=== PATIENT | male | born 1960 | race American Indian/Alaskan Native ===

== ENCOUNTER 2019-04-08 12:29 | Outpatient (CLI) | payer OTHER ==
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
== END 2019-04-08 12:30 | disposition home or self-care (01) ==
LOC: XRAY 12:29
PROVIDERS: ATTEND Family Medicine
DX: M54.5 Low back pain (principal); M25.511 Pain in right shoulder; V89.2XXA Person injured in unspecified motor-vehicle accident, traffic, initial encounter; Y93.89 Activity, other specified; Y92.89 Other specified places as the place of occurrence of the external cause; Y99.8 Other external cause status
CPT/HCPCS: 72100

== ENCOUNTER 2020-07-18 14:54 | Inpatient (IN) | payer SELFPAY ==
--- NOTE | 2020-07-18 15:46 | Event Note ---
ED Screening Note Date of service: 07/18/20 Time: 15:45 ED Screening Note: 60 y o male with a history of congestive heart failure presents with chest pain shortness of breath and lower extremity swelling times couple of days. This initial assessment/diagnostic orders/clinical plan/treatment(s) is/are subject to change based on patients health status, clinical progression and re- assessment by fellow clinical providers in the ED. Further treatment and workup at subsequent clinical providers discretion. Patient/guardian urged not to elope from the ED as their condition may be serious if not clinically assessed and managed. Initial orders include: Labs, EKG, x-ray
[2020-07-18 15:59] LABS: Basophils % (Auto) 0.6 % (0.0-1.8); Eosinophils % (Auto) 0.3 % (0.0-4.3); Hematocrit 35.7 % (35.5-45.6); Hemoglobin 11.4 gm/dl (11.8-15.2); Lymphocytes # (Auto) 1.1 K/mm3 (1.2-5.4); Lymphocytes % (Auto) 15.7 % (13.4-35.0); Mean Corpuscular HGB Conc 32 % (32-34); Mean Corpuscular Volume 82 fl (84-94); Monocytes # (Auto) 0.5 K/mm3 (0.0-0.8); Monocytes % (Auto) 7.5 % (0.0-7.3); Platelet Count 165 K/mm3 (140-440); Red Blood Count 4.35 M/mm3 (3.65-5.03); Red Cell Distribution Width 18.9 % (13.2-15.2)
[2020-07-18 16:17] LABS: BUN/Creatinine Ratio 20; Blood Urea Nitrogen 22 mg/dL (9-20); Calcium 9.1 mg/dL (8.4-10.2); Creatine Kinase MB 4.8 ng/mL (0.0-4.0); Hemolysis Index 5
--- NOTE | 2020-07-18 16:50 | Emergency Department Report ---
ED Chest Pain HPI - General Chief Complaint: Dyspnea/Respdistress Stated Complaint: SOB/FEET/FACE SWELLING PUI?: No Time Seen by Provider: 07/18/20 16:25 Source: patient Mode of arrival: Ambulatory Limitations: No Limitations - History of Present Illness Initial Comments: Patient is a 60-year-old male that presents emergency room with complaints of chest pain, chest pressure, shortness of breath, peripheral edema. Patient sta maira his symptoms started 2 days ago. Patient states his symptoms are worsening. Patient states he is also having dyspnea on exertion. Patient states his chest pain and shortness of breath are better with rest and worse with exertion. Patient states chest pain is a 2 out of 10. Patient states his chest pain is more of a pressure. Patient denies fever and chills. Patient denies nausea vomiting. Patient denies diaphoresis. Patient denies recent travel. Patient denies recent international travel. Patient denies exposure to the novel coronavirus. Patient denies sick contacts. Patient denies fever and chills. Patient denies cough. Patient denies diarrhea. Patient denies coming in contact with anybody with symptoms of the novel coronavirus. MD Complaint: chest pain -: Sudden Pain Location: left chest Severity: mild Severity scale (0 -10): 3 Quality: tightness, pressure Improves With: rest Worsens With: exertion re: dyspnea. denies: nausea, vomting, diaphoresis, sense of impending doom Other Symptoms: leg swelling. denies: cough, fever, syncope, rash, acid taste in mouth, palpitations, burping Treatments Prior to Arrival: aspirin Aspirin use within the Past 7 Days: (1) Yes - Related Data On Oral Contraceptives: No Allergies Allergy/AdvReac Type Severity Reaction Status Date / Time metformin Allergy Unknown Verified 07/18/20 15:51 Heart Score - HEART Score History: Moderately suspicious EKG: Non-specific Age: 45-65 Risk factors: 1-2 risk factors Troponin: < normal limit HEART Score: 4 ED Review of Systems ROS: Stated complaint: SOB/FEET/FACE SWELLING Other details as noted in HPI Constitutional: denies: chills, fever Eyes: denies: eye pain, eye discharge, vision change ENT: denies: ear pain, throat pain Respiratory: shortness of breath, SOB with exertion, SOB at rest. denies: cough, wheezing Cardiovascular: chest pain, dyspnea on exertion, edema. denies: palpitations Endocrine: no symptoms reported Gastrointestinal: denies: abdominal pain, nausea, diarrhea Genitourinary: denies: urgency, dysuria Musculoskeletal: denies: back pain, joint swelling, arthralgia Skin: denies: rash, lesions Neurological: denies: headache, weakness, paresthesias Psychiatric: denies: anxiety, depression Hematological/Lymphatic: denies: easy bleeding, easy bruising ED Past Medical Hx - Past Medical History Previous Medical History?: Yes Hx Congestive Heart Failure: Yes Additional medical history: elevated cholesterol - Surgical History Past Surgical History?: Yes Additional Surgical History: prostate removed 2016 - Family History Family history: no significant - Social History Smoking Status: Never Smoker Substance Use Type: None ED Physical Exam - General Limitations: No Limitations General appearance: alert, in no apparent distress - Head Head exam: Present: atraumatic, normocephalic - Eye Eye exam: Present: normal appearance - ENT ENT exam: Present: mucous membranes moist - Neck Neck exam: Present: normal inspection - Respiratory Respiratory exam: Present: normal lung sounds bilaterally. Absent: respiratory distress - Cardiovascular Cardiovascular Exam: Present: regular rate, normal rhythm. Absent: systolic murmur, diastolic murmur, rubs, gallop - GI/Abdominal GI/Abdominal exam: Present: soft, normal bowel sounds. Absent: distended, tenderness, guarding - Rectal Rectal exam: Present: deferred - Extremities Exam Extremities exam: Present: full ROM, normal capillary refill, pedal edema. Abse nt: tenderness, calf tenderness - Back Exam Back exam: Present: normal inspection - Neurological Exam Neurological exam: Present: alert, oriented X3 - Psychiatric Psychiatric exam: Present: normal affect, normal mood - Skin Skin exam: Present: warm, dry, intact, normal color. Absent: rash ED Course Vital Signs 07/18/20 15:40 Temperature 98.8 F Pulse Rate 94 H Respiratory 22 Rate Blood Pressure 109/77 O2 Sat by Pulse 94 Oximetry - Reevaluation(s) Reevaluation #1: I discussed all results with patient. I discussed plan of care with patient. Patient agrees with plan of care and admission. Patient to be admitted to the hospitalist service. Patient will be given IV Lasix. 07/18/20 17:16 - Consultations Consultation #1: Hospitalist consulted for admission. Hospitalist to admit patient. 07/18/20 17:26 ANMOL score - Anmol Score Age > 65: (0) No Aspirin use within the Past 7 Days: (1) Yes 3 or more CAD Risk Factors: (0) No 2 or more Angina events in past 24 hrs: (1) Yes Known CAD with more than 50% Stenosis: (0) No Elevated Cardiac Markers: (0) No ST Deviation Greater than 0.5mm: (0) No ANMOL Score: 2 ED Medical Decision Making - Lab Data Result diagrams: 07/18/20 15:50 07/18/20 15:50 - EKG Data -: EKG Interpreted by Me EKG shows normal: axis, intervals, QRS complexes, ST-T waves Rate: normal - EKG Data Interpretation: other (Atrial fibrillation) - Radiology Data Radiology results: report reviewed, image reviewed interpreted by me: Chest x-ray: No pneumonia, no pneumothorax, no foreign body, no osseous findings, cardiomegaly with CHF changes. - Medical Decision Making Patient is a 60-year-old male that presents emergency room for chest pain, shortness of breath and leg edema. Patient's chest pain is more of a pressure. Patient had a cardiac work-up. Patient's chest x-ray shows CHF changes. EKG shows no acute findings or ST changes. Patient's EKG shows A. fib. EKG interpreted by me. Chest x-ray interpreted by me. Patient had labs done which were essentially unremarkable and troponin was negative. Patient's BNP elevated. Patient given IV Lasix in the ER. Patient had an IV placed. Patient admitted to the hospital service for further evaluation treatment. - Differential Diagnosis Chest pain, shortness of breath, CHF, ACS, edema Critical Care Time: Yes Critical care time in (mins) excluding proc time.: 35 Critical care attestation.: If time is entered above; I have spent that time in minutes in the direct care of this critically ill patient, excluding procedure time. Critical Care Time: 35 minutes ED Disposition Clinical Impression: SOB (shortness of breath), KIMBALL (dyspnea on exertion) CHF exacerbation Qualifiers: Heart failure type: unspecified Qualified Code(s): I50.9 - Heart failure, unspecified Edema Qualifiers: Edema type: unspecified Qualified Code(s): R60.9 - Edema, unspecified Pulmonary edema Qualifiers: Chronicity: acute Qualified Code(s): J81.0 - Acute pulmonary edema Disposition: 09 OP ADMIT IP TO THIS HOSP Is pt being admited?: Yes Does the pt Need Aspirin: No Condition: Critical Instructions: Pulmonary Edema (ED) Time of Disposition: 17:26
--- NOTE | 2020-07-18 17:18 | XRay Report ---
CHEST 1 VIEW 07/18/2020 4:59 PM INDICATION / CLINICAL INFORMATION: Dyspnea. COMPARISON: [facility] radiograph dated 10/07/17 FINDINGS: SUPPORT DEVICES: None. HEART / MEDIASTINUM: Heart is moderately enlarged but unchanged. Pulmonary venous hypertension. LUNGS / PLEURA: Mild to moderate interstitial pulmonary edema with small to moderate right pleural ef fusion. No pneumothorax. ADDITIONAL FINDINGS: No significant additional findings. IMPRESSION: 1. Cardiomegaly with probable congestive heart failure. Signer Name: Lana Nguyen MD Signed: 07/18/2020 5:13 PM Workstation Name: [id number]
[2020-07-18] MEDS ORDERED: FUROSEMIDE 40 MG/4 ML INJ IV ONE (17:23)
--- NOTE | 2020-07-18 17:48 | History and Physical Report ---
History of Present Illness Chief complaint: my legs are swollen, and its hard to breathe History of present illness: 60 YO Male with DM, Obesity Hypoventilation Syndrome, Metabolic Syndrome, CHF, HLD presents to ED for evaluation. Pt reports "My legs are swelling, and I cant breathe". Patient states that he has experienced shortness of breath, lower extremity edema, dyspnea on exertion, dyspnea at rest, decreased exercise tolerance, orthopnea, paroxysmal nocturnal dyspnea over the last 1 week with worsening symptoms over the last 2 days. Patient also acknowledges chest discomfort. Patient transported to [facility] via private vehicle for further care and evaluation of the aforementioned symptoms. The patient was seen and evaluated in the emergency department. All lab and imaging studies reviewed. Patient found to have clinical symptoms consistent with CHF decompensation complicated by pulmonary edema. Patient initiated on CHF protocol and admitted to telemetry due to increased risk of worsening symptoms. Patient denies fever, chills, chest pain, palpitation, productive cough, skin rash, recent ill contacts, prolonged travel, prolonged immobility, unilateral leg swelling, calf pain, individual/family history of DVT/PE/bleeding/blood clotting disorders, or known exposure to COVID-19. No prior admission for review. No medication listed at time of admission for reconciliation. Advanced care planning conducted in ED. Past History Past Medical History: diabetes, heart failure, hyperlipidemia Past Surgical History: Other (Prostatectomy) Social history: single. denies: smoking, alcohol abuse, prescription drug abuse Family history: diabetes, hypertension Medications and Allergies Allergies Allergy/AdvReac Type Severity Reaction Status Date / Time metformin Allergy Unknown Verified 07/18/20 15:51 Review of Systems Constitutional: no weight loss, no weight gain, no chills, no sweats Ears, nose, mouth and throat: no ear pain, no tinnitis, no nasal congestion Cardiovascular: orthopnea, shortness of breath, dyspnea on exertion, paroxysmal nocturnal dyspnea, leg edema, decreased exercise tolerance, no chest pain, no palpitations, no rapid/irregular heart beat Respiratory: no cough, no shortness of breath Gastrointestinal: no abdominal pain, no nausea, no vomiting, no diarrhea, no c onstipation Genitourinary Male: no flank pain, no discharge, no urinary frequency, no urinary hesitancy (.), no nocturia Rectal: no pain, no incontinence, no bleeding Musculoskeletal: no neck pain, no arm numbness/tingling, no low back pain, no shooting leg pain Integumentary: no rash, no pruritis, no redness, no sores, no wounds, no jaundice Neurological: no paralysis, no weakness, no parathesias, no numbness, no tingling Psychiatric: no anxiety, no change in sleep habits, no insomnia, no hypersomnia, no change in appetite, no suicidal ideation Endocrine: no cold intolerance, no heat intolerance, no excessive thirst, no polydipsia, no polyuria Hematologic/Lymphatic: no easy bruising, no easy bleeding, no lymphadenopathy Allergic/Immunologic: no urticaria, no wheezing, no persistent infections, no anaphylaxis Exam - Constitutional Vitals: Temp Pulse Resp BP Pulse Ox 98.8 F 99 H 23 144/90 100 07/18/20 15:40 07/18/20 17:30 07/18/20 17:30 07/18/20 17:30 07/18/20 17:30 General appearance: Present: mild distress - EENT Eyes: Present: PERRL ENT: hearing intact, clear oral mucosa - Neck Neck: Present: supple, normal ROM - Respiratory Respiratory effort: labored, accessory muscle use Respiratory: bilateral: diminished, rales - Cardiovascular Heart Sounds: Present: S1 & S2. Absent: rub, click - Extremities Extremities: pulses symmetrical Extremity abnormal: edema, other (BLE blisters) Peripheral Pulses: within normal limits - Abdominal General gastrointestinal: Present: soft, non-tender, non-distended, normal bowel sounds Male genitourinary: Present: normal - Integumentary Integumentary: Present: clear, warm, dry - Musculoskeletal Musculoskeletal: gait normal, strength equal bilaterally - Psychiatric Psychiatric: appropriate mood/affect, intact judgment & insight - Neurologic Neurologic: CNII-XII intact, moves all extremities HEART Score - HEART Score EKG: Non-specific Age: 45-65 Risk factors: 1-2 risk factors Troponin: Troponin T 0.019 ng/mL (0.00-0.029) 07/18/20 15:50 Troponin: < normal limit Results - Labs CBC & Chem 7: 07/18/20 15:50 07/18/20 15:50 Labs: Abnormal lab results 07/18/20 07/18/20 07/18/20 Range/Units 15:50 15:50 15:50 Hgb 11.4 L (11.8-15.2) gm/dl MCV 82 L (84-94) fl MCH 26 L (28-32) pg RDW 18.9 H (13.2-15.2) % [place] % (Auto) 7.5 H (0.0-7.3) % Lymph # (Auto) 1.1 L (1.2-5.4) K/mm3 Seg Neutrophils % 75.9 H (40.0-70.0) % Potassium 3.4 L (3.6-5.0) mmol/L Carbon Dioxide 31 H (22-30) mmol/L BUN 22 H (9-20) mg/dL Glucose 128 H (75-100) mg/dL CK-MB (CK-2) 4.8 H (0.0-4.0) ng/mL Assessment and Plan - Patient Problems (1) CHF exacerbation Status: Acute Qualifiers: Heart failure type: unspecified Qualified Code(s): I50.9 - Heart failure, unspecified Plan to address problem: CHF Protocol: Strict I/O, daily weight, monitor uop q shift, afterload reduction, Echocardiogram, thyroid panel, (2) HLD (hyperlipidemia) Status: Acute Qualifiers: Hyperlipidemia type: mixed hyperlipidemia Qualified Code(s): E78.2 - Mixed hyperlipidemia Plan to address problem: low cholesterol diet, statin therapy as clinically indicated. (3) Pulmonary edema Status: Acute Qualifiers: Chronicity: acute Qualified Code(s): J81.0 - Acute pulmonary edema Plan to address problem: diuresis, supportive care. (4) Obesity hypoventilation syndrome Status: Acute Plan to address problem: Balanced diet, increased physical activity at discharge, outpatient pulmonary F/U for sleep study (5) Metabolic syndrome Status: Acute Plan to address problem: balanced diet, increased physical activity at discharge, glucose control, (6) Edema Status: Acute Qualifiers: Edema type: unspecified Qualified Code(s): R60.9 - Edema, unspecified Plan to address problem: BLE blisters: Wound care consulted. (7) DVT prophylaxis Status: Acute Plan to address problem: SCD to BLE while in bed, Pt is ambulatory.
[2020-07-18] MEDS ORDERED: ACETAMINOPHEN 325 MG TAB PO PRN (17:49)
[2020-07-18] MEDS ORDERED: ALBUTEROL 2.5 MG/3 ML NEBU IH PRN (17:49)
[2020-07-18] MEDS ORDERED: ONDANSETRON 4 MG/2 ML INJ IV PRN (17:49)
[2020-07-18] MEDS: FUROSEMIDE 20 MG/2 ML INJ IV SCH (18:35)
[2020-07-18 18:38] LABS: Free T4 (Free Thyroxine) 1.31 ng/dL (0.76-1.46)
[2020-07-19] MEDS: FUROSEMIDE 20 MG/2 ML INJ IV SCH (06:46)
[2020-07-19 07:21] LABS: BUN/Creatinine Ratio 21; Blood Urea Nitrogen 23 mg/dL (9-20); Calcium 9.3 mg/dL (8.4-10.2); Hemolysis Index 4
--- NOTE | 2020-07-19 10:05 | Progress Note ---
Assessment and Plan Assessment and plan: Acute heart failure exacerbation. Obesity hypoventilation syndrome. Acute hypoxic respiratory failure. Etiology secondary to above. Diabetes mellitus type 2. Hyperlipidemia. 07/19/2020. Cardiology consultation pending. Follow-up echocardiogram to assess for systolic and diastolic dysfunction. Continue IV diuresis of Lasix. GDMT per cardiology. Continue O2 to maintain sats greater than 92%. Continue Accu- Cheks and sliding scale insulin. History Interval history: No new issues overnight. Hospitalist Physical - Constitutional Vitals: Temp Pulse Resp BP Pulse Ox 98.1 F 98 H 16 123/71 96 07/19/20 03:04 07/19/20 03:04 07/19/20 03:04 07/19/20 03:04 07/19/20 08:57 General appearance: Present: mild distress - EENT Eyes: Present: PERRL, EOM intact ENT: hearing intact, clear oral mucosa, dentition normal - Neck Neck: Present: supple, normal ROM - Respiratory Respiratory effort: normal Respiratory: bilateral: CTA - Cardiovascular Rhythm: regular Heart Sounds: Present: S1 & S2. Absent: gallop, rub - Extremities Extremities: no ischemia, No edema, Full ROM - Abdominal General gastrointestinal: soft, non-tender, non-distended, normal bowel sounds - Integumentary Integumentary: Present: clear, warm, dry - Neurologic Neurologic: CNII-XII intact, moves all extremities HEART Score - HEART Score EKG: Non-specific Age: 45-65 Risk factors: 1-2 risk factors Troponin: Troponin T 0.019 ng/mL (0.00-0.029) 07/18/20 15:50 Troponin: < normal limit Results - Labs CBC & Chem 7: 07/18/20 15:50 07/19/20 06:05 Labs: Laboratory Last Values WBC 7.3 K/mm3 (4.5-11.0) 07/18/20 15:50 RBC 4.35 M/mm3 (3.65-5.03) 07/18/20 15:50 Hgb 11.4 gm/dl (11.8-15.2) L 07/18/20 15:50 Hct 35.7 % (35.5-45.6) 07/18/20 15:50 MCV 82 fl (84-94) L 07/18/20 15:50 MCH 26 pg (28-32) L 07/18/20 15:50 MCHC 32 % (32-34) 07/18/20 15:50 RDW 18.9 % (13.2-15.2) H 07/18/20 15:50 Plt Count 165 K/mm3 (140-440) 07/18/20 15:50 Lymph % (Auto) 15.7 % (13.4-35.0) 07/18/20 15:50 [place] % (Auto) 7.5 % (0.0-7.3) H 07/18/20 15:50 Eos % (Auto) 0.3 % (0.0-4.3) 07/18/20 15:50 Baso % (Auto) 0.6 % (0.0-1.8) 07/18/20 15:50 Lymph # (Auto) 1.1 K/mm3 (1.2-5.4) L 07/18/20 15:50 [place] # (Auto) 0.5 K/mm3 (0.0-0.8) 07/18/20 15:50 Eos # (Auto) 0.0 K/mm3 (0.0-0.4) 07/18/20 15:50 Baso # (Auto) 0.0 K/mm3 (0.0-0.1) 07/18/20 15:50 Seg Neutrophils % 75.9 % (40.0-70.0) H 07/18/20 15:50 Seg Neutrophils # 5.5 K/mm3 (1.8-7.7) 07/18/20 15:50 Sodium 141 mmol/L (137-145) 07/19/20 06:05 Potassium 3.2 mmol/L (3.6-5.0) L 07/19/20 06:05 Chloride 102.3 mmol/L (98-107) 07/19/20 06:05 Carbon Dioxide 31 mmol/L (22-30) H 07/19/20 06:05 Anion Gap 11 mmol/L 07/19/20 06:05 BUN 23 mg/dL (9-20) H 07/19/20 06:05 Creatinine 1.1 mg/dL (0.8-1.3) 07/19/20 06:05 Estimated GFR > 60 ml/min 07/19/20 06:05 BUN/Creatinine Ratio 21 % 07/19/20 06:05 Glucose 110 mg/dL (75-100) H 07/19/20 06:05 Calcium 9.3 mg/dL (8.4-10.2) 07/19/20 06:05 Magnesium 1.80 mg/dL (1.7-2.3) 07/18/20 18:00 Total Creatine Kinase 147 units/L (55-170) 07/18/20 15:50 CK-MB (CK-2) 4.8 ng/mL (0.0-4.0) H 07/18/20 15:50 CK-MB (CK-2) Rel Index 3.2 (0-4) 07/18/20 15:50 Troponin T 0.019 ng/mL (0.00-0.029) 07/18/20 15:50 NT-Pro-B Natriuret Pep 2430 pg/mL (0-900) H 07/18/20 16:59 TSH 1.140 mlU/mL (0.270-4.200) 07/18/20 18:00 Free T4 1.31 ng/dL (0.76-1.46) 07/18/20 18:00 - Diagnostic Impressions Diagnostic Impressions: Echocardiogram 07/18/20 17:51 Transthoracic Echocardiogram Indication: SOB BP: 123/71 HR: 103 Conclusions *The left ventricular chamber size is mildly dilated. *Mild concentric left ventricular hypertrophy is observed. *Global left ventricular systolic function is severely decreased. *The estimated ejection fraction is 10-15%. *Abnormal left ventricular diastolic filling is observed, consistent with impaired relaxation. *The left atrium is moderately dilated. *There is mild aortic regurgitation. *There is moderate mitral regurgitation. *There is evidence of moderate pulmonary hypertension. *A trivial pericardial effusion is visualized. Findings Left Ventricle: The left ventricular chamber size is mildly dilated. Mild concentric left ventricular hypertrophy is observed. Global left ventricular systolic function is severely decreased. The estimated ejection fraction is 10-15%. Abnormal left ventricular diastolic filling is observed, consistent with impaired relaxation. Left Atrium: The left atrium is moderately dilated. Right Ventricle: The right ventricle is mild to moderately dilated. The right ventricular global systolic function is mildly reduced. Right Atrium: The right atrium is moderate to severely dilated. Aortic Valve: The aortic valve leaflets are mildly thickened. There is mild aortic regurgitation. Mitral Valve: The mitral valve leaflets are mildly thickened. There is moderate mitral regurgitation. Tricuspid Valve: The tricuspid valve leaflets are normal. There is mild tricuspid regurgitation. The right ventricular systolic pressure is calculated at 58 mmHg. There is evidence of moderate pulmonary hypertension. Pulmonic Valve: The pulmonic valve appears normal. There is trace pulmonic regurgitation. Pericardium: A trivial pericardial effusion is visualized. Aorta: There is mild dilatation of the ascending aorta. There is mild dilatation of the aortic root. Venous: The inferior vena cava is dilated. There is less than 50% respiratory change in the inferior vena cava dimension. Measurements Chambers 2D Name Value Normal Range IVSd (2D) 1.16 cm (0.6 - 1.1) LVPWd (2D) 1.17 cm (0.6 - 1.1) LVIDd (2D) 5.84 cm (3.7 - 5.6) LVIDs (2D) 5.72 cm (2 - 3.8) LV FS (2D) 2.04 % - Ao root diameter (2D) 4.41 cm (2 - 3.7) Volumes/Mass Name Value Normal Range LA ESV SP 4CH (A/L) 84.92 ml - LA ESV SP 2CH (A/L) 95.59 ml - LA ESV BP (A/L) 92.68 ml - LA ESV SP 4CH (MOD) 82 ml - LA ESV SP 2CH (MOD) 93.29 ml - Diastolic/Systolic Function Name Value Normal Range MV E-wave Vmax 0.92 m/sec - MV deceleration time 137.24 msec - Aortic Valve Name Value Normal Range AV Vmax 1.17 m/sec - AV VTI 19.22 cm - AV peak gradient 5.52 mmHg - AV mean gradient 3.43 mmHg - LVOT diameter 2.03 cm - LVOT Vmax 0.95 m/sec - LVOT VTI 15.34 cm - LVOT peak gradient 3.6 mmHg - LVOT mean gradient 2.26 mmHg - SV LVOT 49.86 ml - ALEXIA (continuity Vmax) 2.62 cm2 - ALEXIA (continuity VTI) 2.59 cm2 - AR PHT 438.17 msec - AR peak gradient 63.51 mmHg - Ascending Ao 3.99 cm - Mitral Valve Name Value Normal Range MV Vmax 1.57 m/sec - MV VTI 18.44 cm - MV peak gradient 11.39 mmHg - MV mean gradient 6.05 mmHg - MV PHT 78.85 msec - MR Vmax 4.61 m/sec - MR VTI 137.65 cm - MVA (PHT) 2.79 cm2 - MVA (continuity VTI) 2.7 cm2 - Tricuspid Valve Name Value Normal Range TR Vmax 3.27 m/sec - TR peak gradient 43 mmHg - RAP 15 mmHg - RVSP 58 mmHg - IVC diameter 2.47 cm (1.2 - 2.3) Pulmonic Valve/Qp:Qs Name Value Normal Range PV Vmax 0.64 m/sec - PV peak gradient 1.63 mmHg - ME end-diastolic Vmax 2.09 m/sec - PV acceleration time 102.76 msec - Dale/IV: Voiding Method Urinal Active Medications - Current Medications Current Medications: Generic Name Dose Route Start Last Admin Trade Name Freq PRN Reason Stop Dose Admin Acetaminophen 650 mg 07/18/20 17:49 Acetaminophen 325 Mg Tab PO Q4H PRN Pain MILD(1-3)/Fever >100.5/BOWSER Albuterol 2.5 mg 07/18/20 17:49 Albuterol 2.5 Mg/3 Ml Nebu IH Q4HRT PRN Shortness Of Breath Furosemide 20 mg 07/18/20 18:00 07/19/20 06:46 Furosemide 20 Mg/2 Ml Inj IV 20 mg BID@0600,1800 PANFILO Administration Ondansetron HCl 4 mg 07/18/20 17:49 Ondansetron 4 Mg/2 Ml Inj IV Q8H PRN Nausea And Vomiting Sodium Chloride 10 ml 07/18/20 22:00 07/19/20 04:20 Sodium Chloride 0.9% 10 Ml Flush Syringe IV Not Given BID PANFILO Sodium Chloride 10 ml 07/18/20 17:49 07/19/20 06:47 Sodium Chloride 0.9% 10 Ml Flush Syringe IV 10 ml PRN PRN Administration LINE FLUSH Nutrition/Malnutrition Assess - Dietary Evaluation Nutrition/Malnutrition Findings: Nutrition Notes Start: 07/19/20 09:37 Freq: Status: Active Protocol: Document 07/19/20 09:37 CW (Rec: 07/19/20 09:46 CW [id number]) Nutrition Notes 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
[2020-07-19] MEDS ORDERED: ENOXAPARIN 100 MG/1 ML INJ SUB-Q NR (11:15)
--- NOTE | 2020-07-19 11:25 | Consultation ---
History of Present Illness Consult date: 07/19/20 Requesting physician: CALI ROBB Consult reason: congestive heart failure History of present illness: The pt is a 60 YO male with a past medical history of reported HFrEF, atrial fibrillation, HTN, DM, former heavy ETOH use (quit drinking in 2014), prostate CA s/p surgery in 2017, medical noncompliance. He is previously unknown to our practice. He presented with c/o progressively worsening SOB, KIMBALL, orthopnea, abd ominal swelling, BLE swelling for several months prior to arrival. Pt also reports subjective weight gain over the past several weeks, although he has not weighed himself recently. Pt denies any chest pain, palpitations, n/v, diaphoresis, dizziness or syncope. CXR c/w HF and pleural effusions. tte r eviewed - EF 10-15%. He is noted to be in atrial fibrillation on telemetry. Of note, pt reports a h/o prostate cancer s/p surgery at [facility] in 2017. He reports that at the time of his prostate surgery, he underwent cardiac testing which included echo and cardiac catheterization. He reports that he was diagnosed with HFrEF, NICMP with normal coronaries via [facility], and atrial fibrillation (for which he was initiated on Eliquis at that time). [facility] records reviewed and unfortunately none of these diagnostics are present in pt's chart. Pt admits that he only took prescription medications for approx 1 month following diagnosis in 2017 and has not followed up with a tie hacker since 2017. Past History Past Medical History: diabetes, heart failure, hyperlipidemia Past Surgical History: Other (Prostatectomy) Social history: single. denies: smoking, alcohol abuse, prescription drug abuse Family history: diabetes, hypertension Medications and Allergies Allergies Allergy/AdvReac Type Severity Reaction Status Date / Time metformin Allergy Unknown Verified 07/18/20 15:51 Active Meds: Active Medications Acetaminophen (Acetaminophen 325 Mg Tab) 650 mg PO Q4H PRN PRN Reason: Pain MILD(1-3)/Fever >100.5/BOWSER Albuterol (Albuterol 2.5 Mg/3 Ml Nebu) 2.5 mg IH Q4HRT PRN PRN Reason: Shortness Of Breath Aspirin (Aspirin 325 Mg Tab) 325 mg PO QDAY PANFILO Enoxaparin Sodium (Enoxaparin 100 Mg/1 Ml Inj) 100 mg SUB-Q ONCE NR; Protocol Stop: 07/19/20 16:00 Furosemide (Furosemide 20 Mg/2 Ml Inj) 40 mg IV BID@0600,1800 [facility] Losartan Potassium (Losartan 25 Mg Tab) 25 mg PO QDAY [facility] Metoprolol Tartrate (Metoprolol Tartrate 25 Mg Tab) 25 mg PO BID [facility] Ondansetron HCl (Ondansetron 4 Mg/2 Ml Inj) 4 mg IV Q8H PRN PRN Reason: Nausea And Vomiting Sodium Chloride (Sodium Chloride 0.9% 10 Ml Flush Syringe) 10 ml IV BID [facility] Last Admin: 07/19/20 10:56 Dose: 10 ml Documented by: Sodium Chloride (Sodium Chloride 0.9% 10 Ml Flush Syringe) 10 ml IV PRN PRN PRN Reason: LINE FLUSH Last Admin: 07/19/20 06:47 Dose: 10 ml Documented by: Spironolactone (Spironolactone 25 Mg Tab) 25 mg PO QDAY [facility] Review of Systems Constitutional: weight gain, no fever, no chills, no sweats Ears, nose, mouth and throat: no ear pain, no nose pain, no sinus pressure, no sinus pain Cardiovascular: orthopnea, edema, shortness of breath, dyspnea on exertion, paroxysmal nocturnal dyspnea, high blood pressure, leg edema, decreased exercise tolerance, no chest pain, no palpitations, no rapid/irregular heart beat, no syncope, no lightheadedness Respiratory: shortness of breath, dyspnea on exertion, no cough, no congestion, no wheezing, no pain on inspiration Gastrointestinal: other (abdominal swelling), no abdominal pain, no nausea, no vomiting, no diarrhea, no constipation, no change in bowel habits Genitourinary Male: no dysuria, no hematuria, no flank pain, no discharge, no urinary frequency, no urinary hesitancy Musculoskeletal: no neck stiffness, no neck pain, no shooting arm pain, no arm numbness/tingling, no low back pain, no shooting leg pain Integumentary: no rash, no pruritis, no redness, no sores, no wounds Neurological: no head injury, no paralysis, no weakness, no parathesias, no numbness, no tingling, no seizures, no syncope Psychiatric: no anxiety Endocrine: no cold intolerance, no heat intolerance Hematologic/Lymphatic: no easy bruising Allergic/Immunologic: no urticaria Physical Examination Vital Signs Temp Pulse Resp BP Pulse Ox 98.8 F 94 H 22 109/77 94 07/18/20 15:40 07/18/20 15:40 07/18/20 15:40 07/18/20 15:40 07/18/20 15:40 General appearance: no acute distress HEENT: Positive: PERRL, Normocephaly, Mucus Membranes Moist Neck: Positive: neck supple, trachea midline Cardiac: Positive: irregularly irregular, S1/S2 Lungs: Positive: Decreased Breath Sounds Neuro: Positive: Grossly Intact Abdomen: Positive: Other (abdominal swelling noted). Negative: Tender Skin: Negative: Rash Musculoskeletal: No Pain Extremities: Present: +3 Edema (BLE) Results 07/18/20 15:50 07/19/20 06:05 Cardiac Enzymes 07/18/20 Range/Units 15:50 CK-MB (CK-2) 4.8 H (0.0-4.0) ng/mL CBC 07/18/20 Range/Units 15:50 WBC 7.3 (4.5-11.0) K/mm3 RBC 4.35 (3.65-5.03) M/mm3 Hgb 11.4 L (11.8-15.2) gm/dl Hct 35.7 (35.5-45.6) % Plt Count 165 (140-440) K/mm3 Lymph # (Auto) 1.1 L (1.2-5.4) K/mm3 Russell # (Auto) 0.5 (0.0-0.8) K/mm3 Eos # (Auto) 0.0 (0.0-0.4) K/mm3 Baso # (Auto) 0.0 (0.0-0.1) K/mm3 Comprehensive Metabolic Panel 07/18/20 07/19/20 Range/Units 15:50 06:05 Sodium 139 141 (137-145) mmol/L Potassium 3.4 L 3.2 L (3.6-5.0) mmol/L Chloride 101.3 102.3 (98-107) mmol/L Carbon Dioxide 31 H 31 H (22-30) mmol/L BUN 22 H 23 H (9-20) mg/dL Creatinine 1.1 1.1 (0.8-1.3) mg/dL Glucose 128 H 110 H (75-100) mg/dL Calcium 9.1 9.3 (8.4-10.2) mg/dL - Imaging and Cardiology Echo: report reviewed EKG: report reviewed, image reviewed EKG interpretations - Telemetry EKG Rhythm: Atrial Fibrillation - EKG Supraventricular dysrhythmia: atrial fibrillation Assessment and Plan tte reviewed - EF 10-15%, LV mildly dilated, mild LVH, impaired relaxation, LA mod dilated, mild AR, mod MR, mod pulm HTN with RVSP 58mmHg, trivial pericardial effusion. Pt reports h/o HFrEF, NICMP with normal coronaries via [facility] in 2017 at [facility], and atrial fibrillation (for which he was initiated on Eliquis at that time). [facility] records reviewed and unfortunately none of these diagnostics are present in pt's chart. Pt admits that he has not taken any prescription medications or followed up with a tie hacker since 2017. Repeat ischemic evaluation (LHC) recommended in setting of severe CMP with no available documented prior ischemic evaluation. Indications, potential risks and benefits of LHC reviewed with pt and he is agreeable to proceed with LHC in AM pending he is able to lie flat. NPO after MN. Convert IV lasix to IV bumex for more adequate diuresis. Initiate BB, ARB, aldactone. Initiate full dosage lovenox BID in setting of atrial fibrillation and plan to convert to NOAC prior to discharge. Consider LifeVest placement. Will follow. The patient has been seen in conjunction with Dr. Lukasz Mao who agrees with the assessment and plan of care. - Patient Problems (1) Acute HFrEF (heart failure with reduced ejection fraction) Current Visit: Yes Status: Acute (2) Cardiomyopathy Current Visit: Yes Status: Acute Plan to address problem: NICMP with normal coronaries via [facility] in 2017 per pt report (3) Atrial fibrillation Current Visit: Yes Status: Acute (4) HTN (hypertension) Current Visit: Yes Status: Chronic (5) Diabetes Current Visit: Yes Status: Chronic (6) History of prostate cancer Current Visit: Yes Status: Chronic (7) History of ETOH abuse Current Visit: Yes Status: Chronic (8) Medical non-compliance Current Visit: Yes Status: Chronic
[2020-07-19] MEDS: LOSARTAN 25 MG TAB PO SCH (12:17)
[2020-07-19] MEDS: SPIRONOLACTONE 25 MG TAB PO SCH (12:17)
[2020-07-19] MEDS: BUMETANIDE 1 MG/4 ML INJ IV SCH (17:15)
[2020-07-19] MEDS ORDERED: FUROSEMIDE 20 MG/2 ML INJ IV SCH (18:00)
[2020-07-19] MEDS: METOPROLOL TARTRATE 25 MG TAB PO SCH (22:47)
[2020-07-20 06:18] LABS: Basophils % (Auto) 0.3 % (0.0-1.8); Eosinophils % (Auto) 0.8 % (0.0-4.3); Hematocrit 35.5 % (35.5-45.6); Hemoglobin 11.5 gm/dl (11.8-15.2); Lymphocytes # (Auto) 1.3 K/mm3 (1.2-5.4); Lymphocytes % (Auto) 21.6 % (13.4-35.0); Mean Corpuscular HGB Conc 33 % (32-34); Mean Corpuscular Volume 81 fl (84-94); Monocytes # (Auto) 0.6 K/mm3 (0.0-0.8); Monocytes % (Auto) 9.3 % (0.0-7.3); Platelet Count 166 K/mm3 (140-440); Red Blood Count 4.39 M/mm3 (3.65-5.03); Red Cell Distribution Width 18.9 % (13.2-15.2)
[2020-07-20] MEDS: BUMETANIDE 1 MG/4 ML INJ IV SCH ×2 (06:28→17:55)
[2020-07-20 06:31] LABS: INR 1.01 (0.87-1.13)
[2020-07-20 06:42] LABS: BUN/Creatinine Ratio 21; Blood Urea Nitrogen 21 mg/dL (9-20); Calcium 8.9 mg/dL (8.4-10.2); Chol/HDL Ratio 2.88 %; HDL Cholesterol 43 mg/dL (40-59); Hemolysis Index 0; LDL Cholesterol,Direct 79 mg/dL (50-130)
[2020-07-20] MEDS ORDERED: SODIUM CHLORIDE 0.9% 500 ML 500 ML ONE ×2 (07:35→10:01)
[2020-07-20] MEDS: POTASSIUM CHLORIDE 10 MEQ 10 MEQ/100 ML BAG IV SCH ×2 (07:45→09:18)
--- NOTE | 2020-07-20 09:17 | Progress Note ---
Assessment and Plan Assessment and plan: Acute on chronic systolic heart failure exacerbation. Pt reports h/o HFrEF, NICMP with normal coronaries via [facility] in 2017 at [place] Atrial fibrillation. Nonischemic cardiomyopathy. EF 10 to 15% Medical noncompliance. Pt admits that he has not taken any prescription medications or followed up with a instant printer operator since 2017. Obesity hypoventilation syndrome. Acute hypoxic respiratory failure. Etiology secondary to above. Diabetes mellitus type 2. Hyperlipidemia. 07/19/2020. Cardiology consultation pending. Follow-up echocardiogram to assess for systolic and diastolic dysfunction. Continue IV diuresis of Lasix. GDMT per cardiology. Continue O2 to maintain sats greater than 92%. Continue Accu- Cheks and sliding scale insulin. 07/20/2020. Echocardiogram revealed EF 10-15%, LV mildly dilated, mild LVH, impaired relaxation, LA mod dilated, mild AR, mod MR, mod pulm HTN with RVSP 58mmHg, trivial pericardial effusion. Cardiology recommends ischemic evaluation with [facility] given the severe cardiomyopathy. Continue IV Bumex for diuresis. Continue beta-maddie, ARB and Aldactone per cardiology recommendations. Full dose Lovenox twice daily and will convert to NOAC prior to discharge. Consider LifeVest placement. History Interval history: No new issues overnight. Hospitalist Physical - Constitutional Vitals: Temp Pulse Resp BP Pulse Ox 97.5 F L 96 H 18 101/73 95 07/20/20 03:26 07/20/20 04:00 07/20/20 03:26 07/20/20 03:26 07/20/20 03:26 General appearance: Present: no acute distress - EENT Eyes: Present: PERRL, EOM intact ENT: hearing intact, clear oral mucosa, dentition normal - Neck Neck: Present: supple, normal ROM - Respiratory Respiratory effort: normal Respiratory: bilateral: CTA - Cardiovascular Rhythm: regular Heart Sounds: Present: S1 & S2. Absent: gallop, rub - Extremities Extremities: no ischemia, No edema, Full ROM - Abdominal General gastrointestinal: soft, non-tender, non-distended, normal bowel sounds - Integumentary Integumentary: Present: clear, warm, dry - Neurologic Neurologic: CNII-XII intact, moves all extremities HEART Score - HEART Score EKG: Non-specific Age: 45-65 Risk factors: 1-2 risk factors Troponin: Troponin T 0.019 ng/mL (0.00-0.029) 07/18/20 15:50 Troponin: < normal limit Results - Labs CBC & Chem 7: 07/20/20 04:43 07/20/20 04:43 Labs: Laboratory Last Values WBC 6.1 K/mm3 (4.5-11.0) 07/20/20 04:43 RBC 4.39 M/mm3 (3.65-5.03) 07/20/20 04:43 Hgb 11.5 gm/dl (11.8-15.2) L 07/20/20 04:43 Hct 35.5 % (35.5-45.6) 07/20/20 04:43 MCV 81 fl (84-94) L 07/20/20 04:43 MCH 26 pg (28-32) L 07/20/20 04:43 MCHC 33 % (32-34) 07/20/20 04:43 RDW 18.9 % (13.2-15.2) H 07/20/20 04:43 Plt Count 166 K/mm3 (140-440) 07/20/20 04:43 Lymph % (Auto) 21.6 % (13.4-35.0) 07/20/20 04:43 Johnston % (Auto) 9.3 % (0.0-7.3) H 07/20/20 04:43 Eos % (Auto) 0.8 % (0.0-4.3) 07/20/20 04:43 Baso % (Auto) 0.3 % (0.0-1.8) 07/20/20 04:43 Lymph # (Auto) 1.3 K/mm3 (1.2-5.4) 07/20/20 04:43 Johnston # (Auto) 0.6 K/mm3 (0.0-0.8) 07/20/20 04:43 Eos # (Auto) 0.0 K/mm3 (0.0-0.4) 07/20/20 04:43 Baso # (Auto) 0.0 K/mm3 (0.0-0.1) 07/20/20 04:43 Seg Neutrophils % 68.0 % (40.0-70.0) 07/20/20 04:43 Seg Neutrophils # 4.1 K/mm3 (1.8-7.7) 07/20/20 04:43 PT 13.1 Sec. (12.2-14.9) 07/20/20 04:43 INR 1.01 (0.87-1.13) 07/20/20 04:43 Sodium 142 mmol/L (137-145) 07/20/20 04:43 Potassium 3.0 mmol/L (3.6-5.0) L 07/20/20 04:43 Chloride 101.8 mmol/L (98-107) 07/20/20 04:43 Carbon Dioxide 32 mmol/L (22-30) H 07/20/20 04:43 Anion Gap 11 mmol/L 07/20/20 04:43 BUN 21 mg/dL (9-20) H 07/20/20 04:43 Creatinine 1.0 mg/dL (0.8-1.3) 07/20/20 04:43 Estimated GFR > 60 ml/min 07/20/20 04:43 BUN/Creatinine Ratio 21 % 07/20/20 04:43 Glucose 118 mg/dL (75-100) H 07/20/20 04:43 POC Glucose 94 mg/dL (70-105) 07/19/20 21:13 Calcium 8.9 mg/dL (8.4-10.2) 07/20/20 04:43 Magnesium 1.80 mg/dL (1.7-2.3) 07/18/20 18:00 Total Creatine Kinase 147 units/L (55-170) 07/18/20 15:50 CK-MB (CK-2) 4.8 ng/mL (0.0-4.0) H 07/18/20 15:50 CK-MB (CK-2) Rel Index 3.2 (0-4) 07/18/20 15:50 Troponin T 0.019 ng/mL (0.00-0.029) 07/18/20 15:50 NT-Pro-B Natriuret Pep 2430 pg/mL (0-900) H 07/18/20 16:59 Triglycerides 58 mg/dL (2-149) 07/20/20 04:43 Cholesterol 124 mg/dL (50-199) 07/20/20 04:43 LDL Cholesterol Direct 79 mg/dL (50-130) 07/20/20 04:43 HDL Cholesterol 43 mg/dL (40-59) 07/20/20 04:43 Cholesterol/HDL Ratio 2.88 % 07/20/20 04:43 TSH 1.140 mlU/mL (0.270-4.200) 07/18/20 18:00 Free T4 1.31 ng/dL (0.76-1.46) 07/18/20 18:00 - Diagnostic Impressions Diagnostic Impressions: Echocardiogram 07/18/20 17:51 Transthoracic Echocardiogram Indication: SOB BP: 123/71 HR: 103 Conclusions *The left ventricular chamber size is mildly dilated. *Mild concentric left ventricular hypertrophy is observed. *Global left ventricular systolic function is severely decreased. *The estimated ejection fraction is 10-15%. *Abnormal left ventricular diastolic filling is observed, consistent with impaired relaxation. *The left atrium is moderately dilated. *There is mild aortic regurgitation. *There is moderate mitral regurgitation. *There is evidence of moderate pulmonary hypertension. *A trivial pericardial effusion is visualized. Findings Left Ventricle: The left ventricular chamber size is mildly dilated. Mild concentric left ventricular hypertrophy is observed. Global left ventricular systolic function is severely decreased. The estimated ejection fraction is 10-15%. Abnormal left ventricular diastolic filling is observed, consistent with impaired relaxation. Left Atrium: The left atrium is moderately dilated. Right Ventricle: The right ventricle is mild to moderately dilated. The right ventricular global systolic function is mildly reduced. Right Atrium: The right atrium is moderate to severely dilated. Aortic Valve: The aortic valve leaflets are mildly thickened. There is mild aortic regurgitation. Mitral Valve: The mitral valve leaflets are mildly thickened. There is moderate mitral regurgitation. Tricuspid Valve: The tricuspid valve leaflets are normal. There is mild tricuspid regurgitation. The right ventricular systolic pressure is calculated at 58 mmHg. There is evidence of moderate pulmonary hypertension. Pulmonic Valve: The pulmonic valve appears normal. There is trace pulmonic regurgitation. Pericardium: A trivial pericardial effusion is visualized. Aorta: There is mild dilatation of the ascending aorta. There is mild dilatation of the aortic root. Venous: The inferior vena cava is dilated. There is less than 50% respiratory change in the inferior vena cava dimension. Measurements Chambers 2D Name Value Normal Range IVSd (2D) 1.16 cm (0.6 - 1.1) LVPWd (2D) 1.17 cm (0.6 - 1.1) LVIDd (2D) 5.84 cm (3.7 - 5.6) LVIDs (2D) 5.72 cm (2 - 3.8) LV FS (2D) 2.04 % - Ao root diameter (2D) 4.41 cm (2 - 3.7) Volumes/Mass Name Value Normal Range LA ESV SP 4CH (A/L) 84.92 ml - LA ESV SP 2CH (A/L) 95.59 ml - LA ESV BP (A/L) 92.68 ml - LA ESV SP 4CH (MOD) 82 ml - LA ESV SP 2CH (MOD) 93.29 ml - Diastolic/Systolic Function Name Value Normal Range MV E-wave Vmax 0.92 m/sec - MV deceleration time 137.24 msec - Aortic Valve Name Value Normal Range AV Vmax 1.17 m/sec - AV VTI 19.22 cm - AV peak gradient 5.52 mmHg - AV mean gradient 3.43 mmHg - LVOT diameter 2.03 cm - LVOT Vmax 0.95 m/sec - LVOT VTI 15.34 cm - LVOT peak gradient 3.6 mmHg - LVOT mean gradient 2.26 mmHg - SV LVOT 49.86 ml - ALEXIA (continuity Vmax) 2.62 cm2 - ALEXIA (continuity VTI) 2.59 cm2 - AR PHT 438.17 msec - AR peak gradient 63.51 mmHg - Ascending Ao 3.99 cm - Mitral Valve Name Value Normal Range MV Vmax 1.57 m/sec - MV VTI 18.44 cm - MV peak gradient 11.39 mmHg - MV mean gradient 6.05 mmHg - MV PHT 78.85 msec - MR Vmax 4.61 m/sec - MR VTI 137.65 cm - MVA (PHT) 2.79 cm2 - MVA (continuity VTI) 2.7 cm2 - Tricuspid Valve Name Value Normal Range TR Vmax 3.27 m/sec - TR peak gradient 43 mmHg - RAP 15 mmHg - RVSP 58 mmHg - IVC diameter 2.47 cm (1.2 - 2.3) Pulmonic Valve/Qp:Qs Name Value Normal Range PV Vmax 0.64 m/sec - PV peak gradient 1.63 mmHg - MN end-diastolic Vmax 2.09 m/sec - PV acceleration time 102.76 msec - Dale/IV: Voiding Method Urinal Active Medications - Current Medications Current Medications: Generic Name Dose Route Start Last Admin Trade Name Freq PRN Reason Stop Dose Admin Acetaminophen 650 mg 07/18/20 17:49 Acetaminophen 325 Mg Tab PO Q4H PRN Pain MILD(1-3)/Fever >100.5/BOWSER Albuterol 2.5 mg 07/18/20 17:49 Albuterol 2.5 Mg/3 Ml Nebu IH Q4HRT PRN Shortness Of Breath Aspirin 325 mg 07/20/20 10:00 Aspirin 325 Mg Tab PO QDAY PANFILO Bumetanide 1 mg 07/19/20 18:00 07/20/20 06:28 Bumetanide 1 Mg/4 Ml Inj IV Not Given BID@0600,1800 PANFILO Losartan Potassium 25 mg 07/19/20 11:19 07/19/20 12:17 Losartan 25 Mg Tab PO 25 mg QDAY PANFILO Administration Metoprolol Tartrate 25 mg 07/19/20 22:00 07/19/20 22:47 Metoprolol Tartrate 25 Mg Tab PO 25 mg BID PANFILO Administration Ondansetron HCl 4 mg 07/18/20 17:49 Ondansetron 4 Mg/2 Ml Inj IV Q8H PRN Nausea And Vomiting Sodium Chloride 10 ml 07/18/20 22:00 07/19/20 22:47 Sodium Chloride 0.9% 10 Ml Flush Syringe IV 10 ml BID PANFILO Administration Sodium Chloride 10 ml 07/18/20 17:49 07/19/20 06:47 Sodium Chloride 0.9% 10 Ml Flush Syringe IV 10 ml PRN PRN Administration LINE FLUSH Spironolactone 25 mg 07/19/20 12:00 07/19/20 12:17 Spironolactone 25 Mg Tab PO 25 mg QDAY PANFILO Administration Nutrition/Malnutrition Assess - Dietary Evaluation Nutrition/Malnutrition Findings: Nutrition Notes Start: 07/19/20 09:37 Freq: Status: Active Protocol: Document 07/19/20 09:37 CW (Rec: 07/19/20 09:46 CW [id number]) Nutrition Notes Need for Assessment generated from: receivables specialist,Education Initial or Follow up Assessment Current Diagnosis Diabetes,Heart Failure, Hyperlipidemia Other Pertinent Diagnosis Metabolic syndrome, obesity hypoventilation syndrome, medical noncompliance Current Diet Cardiac Conssitent Carbohydrate Labs/Tests K 3.2 BUN 23 BG 110 Pertinent Medications lasix Height 5 ft 6 in Weight 96.2 kg [place] Body Weight (kg) 64.54 BMI 34.2 Subjective/Other Information Screen for onset diabetes education. No hgBA1c available . BG labs within normal limits . No DM rx. Pt states no prior knowledge of DM related problems but is familar with DM in general. Discussed with patient the importance of avoiding future DM related problems by monitoring carbohydrates as a preventive measure. Pt pleasant and accepted diet tips/handout but did not seem overtly interested d/t preceived risk preception. Nutrition Intervention Teaching Recipient Patient Learning Readiness Poor Teaching Methods Discussion,Handout Education Handouts Provided Counting Carbohyrates Barriers to Learning No Barriers RD phone number provided Yes Patient aware of follow up options Yes Revisit per MD consult or patient Sign Off request: Additional Comments S/O diet education not applicable at this time
[2020-07-20] MEDS ORDERED: ASPIRIN 325 MG TAB PO SCH (10:00)
[2020-07-20] MEDS ORDERED: HEPARIN/NS 5000 UNIT/500ML 1,000 ML IR ONE (10:38)
[2020-07-20] MEDS ORDERED: VERAPAMIL 5 MG/2 ML INJ ONE (10:38)
[2020-07-20] MEDS ORDERED: HEPARIN 10,000 UNITS/10 ML VIAL ONE (10:38)
[2020-07-20] MEDS ORDERED: MIDAZOLAM 2 MG/2 ML INJ ONE (10:39)
[2020-07-20] MEDS ORDERED: LIDOCAINE (2%) 20 MG/1 ML VIAL 20 ML MDV INFILTRATI ONE (10:39)
[2020-07-20] MEDS ORDERED: fentaNYL 100 MCG/2 ML INJ ONE (10:39)
[2020-07-20] MEDS ORDERED: SODIUM CHLORIDE 0.9% 500 ML 500 ML IV SCH (11:00)
[2020-07-20] MEDS: NITROGLYCERIN SYRINGE 3 ML ONE ×2 (11:14→11:26)
--- NOTE | 2020-07-20 11:56 | Cardiac Catherization Report ---
CARDIAC CATHETERIZATION REFERRING PHYSICIAN: Hospitalist service. INDICATION FOR PROCEDURE: The patient is a very pleasant 60-year-old gentleman here with acute heart failure with reduced ejection fraction, found to have an ejection fraction of approximately 15% or so referred for left heart catheterization after euvolemia is established for elucidation of coronary anatomy and etiology of cardiomyopathy. Risks, benefits, alternatives discussed at length prior to obtaining informed consent. PROCEDURE IN DETAIL: The patient was brought to catheterization lab in a postabsorptive state, prepped and draped in sterile fashion. Zelalem's test in right hand was normal. A 2 mL of 2% lidocaine used to anesthetize the right wrist. A standard 6-Libyan hydrophilic sheath used to cannulate the right radial artery via modified Seldinger technique. All exchanges performed to exchange a J-tip guidewire. JL3.5 catheter used to engage the left main. No dampening or ventricularization. Cineangiography performed in all projections. JR4 catheter was used to cross the aortic valve under fluoroscopic guidance. Left ventriculography performed in 30 ASENCIO and 30 SLOVAK projections via hand injections, catheter flushed. Manual pullback performed with continuous pressure monitoring. Catheter used to engage the right coronary. No dampening or ventricularization. Cineangiography performed in all projections. Next, catheter removed from the body of wire, sheath removed. Manual pressure used to achieve hemostasis. DATA: Aortic pressure is 110/50, LV pressure is 110, LVEDP of approximately 15 mmHg. Left ventriculography reveals severe global left ventricular hypokinesis, estimated ejection fraction of 15-20%. No evidence of aortic stenosis. Mildly elevated LVEDP. CORONARY ANATOMY: This is a codominant system. Left main without significant disease, bifurcates in left anterior descending and left circumflex. Left circumflex, moderate sized vessel, courses AV groove, ___OM trunk. LAD is a moderate sized vessel, courses the anterior intraventricular groove, wraps around the apex. Left main without significant disease. Right coronary is a codominant courses the AV groove, distally gives off a PDA and posterolateral branch. No discrete stenoses identified in the entire coronary tree. ANMOL 3 flow throughout. CONCLUSIONS: 1. No angiographic evidence of significant epicardial coronary artery disease in this codominant system. 2. Severely dilated and hypokinetic left ventricle with estimated ejection fraction of 15-20%. 3. No evidence of aortic stenosis. 4. Mildly elevated LVEDP. These findings are consistent with a severe dilated nonischemic cardiomyopathy, which is reasonably well compensated. Continue with empiric medical therapy. Consider LifeVest prior to discharge. Results of procedure explained to the patient and family. All questions and concerns were addressed. Standard radial care. JOB# [id number] SBM/NTS
[2020-07-20] MEDS ORDERED: traMADol 50 MG TAB PO PRN (12:41)
--- NOTE | 2020-07-20 12:41 | Progress Note ---
Assessment and Plan S/p LHC via RRA today which showed normal coronaries, severely dilated LV, EF 15-20%. Cont IV bumex, BB, ARB, aldactone. Replete K+. F/u BMP and Mg in AM. Pt remains in AFib with CVR. Initiate Eliquis. Cardiac defibrillator is recommended in setting of severe longstanding NICMP and NSVT. LifeVest ordered. Plan to evaluate for AICD candidacy as OP. Plan for discharge once LifeVest is in place and pt is near euvolemia. Will follow. The patient has been seen in conjunction with Dr. Lukasz Mao who agrees with the assessment and plan of care. - Patient Problems (1) Acute HFrEF (heart failure with reduced ejection fraction) Current Visit: Yes Status: Acute (2) NICM (nonischemic cardiomyopathy) Current Visit: Yes Status: Chronic (3) Normal coronary arteries Current Visit: Yes Status: Chronic (4) Atrial fibrillation Current Visit: Yes Status: Acute (5) NSVT (nonsustained ventricular tachycardia) Current Visit: Yes Status: Acute (6) HTN (hypertension) Current Visit: Yes Status: Chronic (7) Diabetes Current Visit: Yes Status: Chronic (8) History of prostate cancer Current Visit: Yes Status: Chronic (9) History of ETOH abuse Current Visit: Yes Status: Chronic (10) Medical non-compliance Current Visit: Yes Status: Chronic Subjective Date of service: 07/20/20 Principal diagnosis: HF Interval history: pt for [facility] today, feeling better. BLE edema gradually improving. tele reviewed - in SR with 3-5 beat runs NSVT overnight, pt asymptomatic. Objective Last Vital Signs Temp 97.5 F L 07/20/20 07:38 Pulse 81 07/20/20 07:38 Resp 18 07/20/20 07:38 BP 110/80 07/20/20 07:38 Pulse Ox 97 07/20/20 07:38 - Physical Examination General: No Apparent Distress HEENT: Positive: PERRL, Normocephaly, Mucus Membranes Moist Neck: Positive: neck supple, trachea midline Cardiac: Positive: Reg Rate and Rhythm, S1/S2 Neuro: Positive: Grossly Intact Abdomen: Positive: Other (abdominal swelling noted). Negative: Tender Skin: Negative: Rash Musculoskeletal: No Pain Extremities: Present: +3 Edema (BLE) - Labs and Meds Coagulation 07/20/20 Range/Units 04:43 PT 13.1 (12.2-14.9) Sec. INR 1.01 (0.87-1.13) Lipids 07/20/20 Range/Units 04:43 Triglycerides 58 (2-149) mg/dL Cholesterol 124 (50-199) mg/dL HDL Cholesterol 43 (40-59) mg/dL Cholesterol/HDL Ratio 2.88 % CBC 07/20/20 Range/Units 04:43 WBC 6.1 (4.5-11.0) K/mm3 RBC 4.39 (3.65-5.03) M/mm3 Hgb 11.5 L (11.8-15.2) gm/dl Hct 35.5 (35.5-45.6) % Plt Count 166 (140-440) K/mm3 Lymph # (Auto) 1.3 (1.2-5.4) K/mm3 [place] # (Auto) 0.6 (0.0-0.8) K/mm3 Eos # (Auto) 0.0 (0.0-0.4) K/mm3 Baso # (Auto) 0.0 (0.0-0.1) K/mm3 Comprehensive Metabolic Panel 07/20/20 Range/Units 04:43 Sodium 142 (137-145) mmol/L Potassium 3.0 L (3.6-5.0) mmol/L Chloride 101.8 (98-107) mmol/L Carbon Dioxide 32 H (22-30) mmol/L BUN 21 H (9-20) mg/dL Creatinine 1.0 (0.8-1.3) mg/dL Glucose 118 H (75-100) mg/dL Calcium 8.9 (8.4-10.2) mg/dL - Imaging and Cardiology EKG: report reviewed, image reviewed Echo: report reviewed - Telemetry EKG Rhythm: Sinus Rhythm
[2020-07-20] MEDS: LOSARTAN 25 MG TAB PO SCH (14:53)
[2020-07-20] MEDS: METOPROLOL TARTRATE 25 MG TAB PO SCH ×2 (14:54→22:16)
[2020-07-20] MEDS: SPIRONOLACTONE 25 MG TAB PO SCH (14:54)
[2020-07-20] MEDS ORDERED: SODIUM CHLORIDE 0.9% 500 ML 500 ML IV ONE (14:56)
[2020-07-20] MEDS ORDERED: POTASSIUM CHLORIDE ER 20 MEQ TAB PO ONE (16:00)
[2020-07-20] MEDS: APIXABAN 5 MG TAB PO SCH (22:16)
[2020-07-21 07:06] LABS: Basophils % (Auto) 0.4 % (0.0-1.8); Eosinophils % (Auto) 0.4 % (0.0-4.3); Hematocrit 36.2 % (35.5-45.6); Hemoglobin 11.8 gm/dl (11.8-15.2); Lymphocytes # (Auto) 1.4 K/mm3 (1.2-5.4); Lymphocytes % (Auto) 19.8 % (13.4-35.0); Mean Corpuscular HGB Conc 33 % (32-34); Mean Corpuscular Volume 81 fl (84-94); Monocytes # (Auto) 0.5 K/mm3 (0.0-0.8); Monocytes % (Auto) 7.2 % (0.0-7.3); Platelet Count 174 K/mm3 (140-440); Red Blood Count 4.47 M/mm3 (3.65-5.03); Red Cell Distribution Width 19.6 % (13.2-15.2)
[2020-07-21] MEDS: BUMETANIDE 1 MG/4 ML INJ IV SCH ×2 (07:16→17:34)
[2020-07-21 07:36] LABS: BUN/Creatinine Ratio 24; Blood Urea Nitrogen 26 mg/dL (9-20); Hemolysis Index 16
[2020-07-21] MEDS: HYDROcodone/ACETAMINOPHEN 5-325 MG TAB PO PRN ×3 (08:05→17:00)
--- NOTE | 2020-07-21 09:57 | Progress Note ---
Assessment and Plan Assessment and plan: Acute on chronic systolic heart failure exacerbation. Pt reports h/o HFrEF, NICMP with normal coronaries via LHC in 2017 at [place] Atrial fibrillation. Nonischemic cardiomyopathy. EF 10 to 15% Medical noncompliance. Pt admits that he has not taken any prescription medications or followed up with a rate quoting operator since 2017. Obesity hypoventilation syndrome. Acute hypoxic respiratory failure. Etiology secondary to above. Diabetes mellitus type 2. Hyperlipidemia. 07/19/2020. Cardiology consultation pending. Follow-up echocardiogram to assess for systolic and diastolic dysfunction. Continue IV diuresis of Lasix. GDMT per cardiology. Continue O2 to maintain sats greater than 92%. Continue Accu- Cheks and sliding scale insulin. 07/20/2020. Echocardiogram revealed EF 10-15%, LV mildly dilated, mild LVH, impaired relaxation, LA mod dilated, mild AR, mod MR, mod pulm HTN with RVSP 58mmHg, trivial pericardial effusion. Cardiology recommends ischemic evaluation with [facility] given the severe cardiomyopathy. Continue IV Bumex for diuresis. Continue beta-maddie, ARB and Aldactone per cardiology recommendations. Full dose Lovenox twice daily and will convert to NOAC prior to discharge. Consider LifeVest placement. 07/21/2020. Patient is s/p LHC via RRA on 07/20 which showed normal coronaries, severely dilated LV, EF 15-20%. Continue IV Bumex, beta-maddie, ARB and Aldactone. Replete potassium as needed. Follow-up BMP and magnesium in a.m. patient kevyn with A. fib and controlled ventricular rate. Cardiology started Eliquis. Cardiology also recommends cardiac defibrillator in setting of severe longstanding NICMP and NSVT. LifeVest ordered. Plan to evaluate for AICD candidacy as OP. Plan for discharge once LifeVest is in place and pt is near euvolemia. History Interval history: No new issues overnight. Hospitalist Physical - Constitutional Vitals: Temp Pulse Resp BP Pulse Ox 97.8 F 94 H 18 118/83 96 07/21/20 03:16 07/21/20 07:14 07/21/20 07:14 07/21/20 07:14 07/21/20 07:14 General appearance: Present: no acute distress - EENT Eyes: Present: PERRL, EOM intact ENT: hearing intact, clear oral mucosa, dentition normal - Neck Neck: Present: supple, normal ROM - Respiratory Respiratory effort: normal Respiratory: bilateral: CTA - Cardiovascular Rhythm: regular Heart Sounds: Present: S1 & S2. Absent: gallop, rub - Extremities Extremities: no ischemia, Full ROM Extremity abnormal: edema (3+) - Abdominal General gastrointestinal: soft, non-tender, non-distended, normal bowel sounds - Integumentary Integumentary: Present: clear, warm, dry - Neurologic Neurologic: CNII-XII intact, moves all extremities HEART Score - HEART Score EKG: Non-specific Age: 45-65 Risk factors: 1-2 risk factors Troponin: Troponin T 0.019 ng/mL (0.00-0.029) 07/18/20 15:50 Troponin: < normal limit Results - Labs CBC & Chem 7: 07/21/20 06:21 07/21/20 06:21 Labs: Laboratory Last Values WBC 6.8 K/mm3 (4.5-11.0) 07/21/20 06:21 RBC 4.47 M/mm3 (3.65-5.03) 07/21/20 06:21 Hgb 11.8 gm/dl (11.8-15.2) 07/21/20 06:21 Hct 36.2 % (35.5-45.6) 07/21/20 06:21 MCV 81 fl (84-94) L 07/21/20 06:21 MCH 26 pg (28-32) L 07/21/20 06:21 MCHC 33 % (32-34) 07/21/20 06:21 RDW 19.6 % (13.2-15.2) H 07/21/20 06:21 Plt Count 174 K/mm3 (140-440) 07/21/20 06:21 Lymph % (Auto) 19.8 % (13.4-35.0) 07/21/20 06:21 [place] % (Auto) 7.2 % (0.0-7.3) 07/21/20 06:21 Eos % (Auto) 0.4 % (0.0-4.3) 07/21/20 06:21 Baso % (Auto) 0.4 % (0.0-1.8) 07/21/20 06:21 Lymph # (Auto) 1.4 K/mm3 (1.2-5.4) 07/21/20 06:21 [place] # (Auto) 0.5 K/mm3 (0.0-0.8) 07/21/20 06:21 Eos # (Auto) 0.0 K/mm3 (0.0-0.4) 07/21/20 06:21 Baso # (Auto) 0.0 K/mm3 (0.0-0.1) 07/21/20 06:21 Seg Neutrophils % 72.2 % (40.0-70.0) H 07/21/20 06:21 Seg Neutrophils # 4.9 K/mm3 (1.8-7.7) 07/21/20 06:21 PT 13.1 Sec. (12.2-14.9) 07/20/20 04:43 INR 1.01 (0.87-1.13) 07/20/20 04:43 Sodium 142 mmol/L (137-145) 07/21/20 06:21 Potassium 3.9 mmol/L (3.6-5.0) D 07/21/20 06:21 Chloride 103.5 mmol/L (98-107) 07/21/20 06:21 Carbon Dioxide 29 mmol/L (22-30) 07/21/20 06:21 Anion Gap 13 mmol/L 07/21/20 06:21 BUN 26 mg/dL (9-20) H 07/21/20 06:21 Creatinine 1.1 mg/dL (0.8-1.3) 07/21/20 06:21 Estimated GFR > 60 ml/min 07/21/20 06:21 BUN/Creatinine Ratio 24 % 07/21/20 06:21 Glucose 131 mg/dL (75-100) H 07/21/20 06:21 POC Glucose 137 mg/dL (70-105) H 07/20/20 20:55 Calcium 9.0 mg/dL (8.4-10.2) 07/21/20 06:21 Magnesium 1.90 mg/dL (1.7-2.3) 07/21/20 06:21 Total Creatine Kinase 147 units/L (55-170) 07/18/20 15:50 CK-MB (CK-2) 4.8 ng/mL (0.0-4.0) H 07/18/20 15:50 CK-MB (CK-2) Rel Index 3.2 (0-4) 07/18/20 15:50 Troponin T 0.019 ng/mL (0.00-0.029) 07/18/20 15:50 NT-Pro-B Natriuret Pep 2430 pg/mL (0-900) H 07/18/20 16:59 Triglycerides 58 mg/dL (2-149) 07/20/20 04:43 Cholesterol 124 mg/dL (50-199) 07/20/20 04:43 LDL Cholesterol Direct 79 mg/dL (50-130) 07/20/20 04:43 HDL Cholesterol 43 mg/dL (40-59) 07/20/20 04:43 Cholesterol/HDL Ratio 2.88 % 07/20/20 04:43 TSH 1.140 mlU/mL (0.270-4.200) 07/18/20 18:00 Free T4 1.31 ng/dL (0.76-1.46) 07/18/20 18:00 - Diagnostic Impressions Diagnostic Impressions: Echocardiogram 07/18/20 17:51 Transthoracic Echocardiogram Indication: SOB BP: 123/71 HR: 103 Conclusions *The left ventricular chamber size is mildly dilated. *Mild concentric left ventricular hypertrophy is observed. *Global left ventricular systolic function is severely decreased. *The estimated ejection fraction is 10-15%. *Abnormal left ventricular diastolic filling is observed, consistent with impaired relaxation. *The left atrium is moderately dilated. *There is mild aortic regurgitation. *There is moderate mitral regurgitation. *There is evidence of moderate pulmonary hypertension. *A trivial pericardial effusion is visualized. Findings Left Ventricle: The left ventricular chamber size is mildly dilated. Mild concentric left ventricular hypertrophy is observed. Global left ventricular systolic function is severely decreased. The estimated ejection fraction is 10-15%. Abnormal left ventricular diastolic filling is observed, consistent with impaired relaxation. Left Atrium: The left atrium is moderately dilated. Right Ventricle: The right ventricle is mild to moderately dilated. The right ventricular global systolic function is mildly reduced. Right Atrium: The right atrium is moderate to severely dilated. Aortic Valve: The aortic valve leaflets are mildly thickened. There is mild aortic regurgitation. Mitral Valve: The mitral valve leaflets are mildly thickened. There is moderate mitral regurgitation. Tricuspid Valve: The tricuspid valve leaflets are normal. There is mild tricuspid regurgitation. The right ventricular systolic pressure is calculated at 58 mmHg. There is evidence of moderate pulmonary hypertension. Pulmonic Valve: The pulmonic valve appears normal. There is trace pulmonic regurgitation. Pericardium: A trivial pericardial effusion is visualized. Aorta: There is mild dilatation of the ascending aorta. There is mild dilatation of the aortic root. Venous: The inferior vena cava is dilated. There is less than 50% respiratory change in the inferior vena cava dimension. Measurements Chambers 2D Name Value Normal Range IVSd (2D) 1.16 cm (0.6 - 1.1) LVPWd (2D) 1.17 cm (0.6 - 1.1) LVIDd (2D) 5.84 cm (3.7 - 5.6) LVIDs (2D) 5.72 cm (2 - 3.8) LV FS (2D) 2.04 % - Ao root diameter (2D) 4.41 cm (2 - 3.7) Volumes/Mass Name Value Normal Range LA ESV SP 4CH (A/L) 84.92 ml - LA ESV SP 2CH (A/L) 95.59 ml - LA ESV BP (A/L) 92.68 ml - LA ESV SP 4CH (MOD) 82 ml - LA ESV SP 2CH (MOD) 93.29 ml - Diastolic/Systolic Function Name Value Normal Range MV E-wave Vmax 0.92 m/sec - MV deceleration time 137.24 msec - Aortic Valve Name Value Normal Range AV Vmax 1.17 m/sec - AV VTI 19.22 cm - AV peak gradient 5.52 mmHg - AV mean gradient 3.43 mmHg - LVOT diameter 2.03 cm - LVOT Vmax 0.95 m/sec - LVOT VTI 15.34 cm - LVOT peak gradient 3.6 mmHg - LVOT mean gradient 2.26 mmHg - SV LVOT 49.86 ml - ALEXIA (continuity Vmax) 2.62 cm2 - ALEXIA (continuity VTI) 2.59 cm2 - AR PHT 438.17 msec - AR peak gradient 63.51 mmHg - Ascending Ao 3.99 cm - Mitral Valve Name Value Normal Range MV Vmax 1.57 m/sec - MV VTI 18.44 cm - MV peak gradient 11.39 mmHg - MV mean gradient 6.05 mmHg - MV PHT 78.85 msec - MR Vmax 4.61 m/sec - MR VTI 137.65 cm - MVA (PHT) 2.79 cm2 - MVA (continuity VTI) 2.7 cm2 - Tricuspid Valve Name Value Normal Range TR Vmax 3.27 m/sec - TR peak gradient 43 mmHg - RAP 15 mmHg - RVSP 58 mmHg - IVC diameter 2.47 cm (1.2 - 2.3) Pulmonic Valve/Qp:Qs Name Value Normal Range PV Vmax 0.64 m/sec - PV peak gradient 1.63 mmHg - IL end-diastolic Vmax 2.09 m/sec - PV acceleration time 102.76 msec - [place]/IV: Voiding Method Urinal Active Medications - Current Medications Current Medications: Generic Name Dose Route Start Last Admin Trade Name Freq PRN Reason Stop Dose Admin Acetaminophen 650 mg 07/18/20 17:49 Acetaminophen 325 Mg Tab PO Q4H PRN Pain MILD(1-3)/Fever >100.5/BOWSER Hydrocodone Bitart/Acetaminophen 1 each 07/20/20 12:41 Hydrocodone/Acetaminophen 5-325 Mg Tab PO Q4H PRN Pain, Moderate (4-6) Albuterol 2.5 mg 07/18/20 17:49 Albuterol 2.5 Mg/3 Ml Nebu IH Q4HRT PRN Shortness Of Breath Apixaban 5 mg 07/20/20 22:00 07/20/20 22:16 Apixaban 5 Mg Tab PO 5 mg Q12HR PANFILO Administration Protocol Bumetanide 1 mg 07/19/20 18:00 07/21/20 07:16 Bumetanide 1 Mg/4 Ml Inj IV 1 mg BID@0600,1800 PANFILO Administration Sodium Chloride 500 mls @ 50 mls/hr 07/20/20 11:00 Nacl 0.9% 500 Ml IV DIRECT PANFILO Losartan Potassium 25 mg 07/19/20 11:19 07/20/20 14:53 Losartan 25 Mg Tab PO 25 mg QDAY PANFILO Administration Metoprolol Tartrate 25 mg 07/19/20 22:00 07/20/20 22:16 Metoprolol Tartrate 25 Mg Tab PO 25 mg BID PANFILO Administration Ondansetron HCl 4 mg 07/18/20 17:49 Ondansetron 4 Mg/2 Ml Inj IV Q8H PRN Nausea And Vomiting Sodium Chloride 10 ml 07/18/20 22:00 07/20/20 22:17 Sodium Chloride 0.9% 10 Ml Flush Syringe IV 10 ml BID PANFILO Administration Sodium Chloride 10 ml 07/18/20 17:49 07/19/20 06:47 Sodium Chloride 0.9% 10 Ml Flush Syringe IV 10 ml PRN PRN Administration LINE FLUSH Spironolactone 25 mg 07/19/20 12:00 07/20/20 14:54 Spironolactone 25 Mg Tab PO 25 mg QDAY PANFILO Administration Tramadol HCl 50 mg 07/20/20 12:41 Tramadol 50 Mg Tab PO Q4H PRN Pain, Mild (1-3) Nutrition/Malnutrition Assess - Dietary Evaluation Nutrition/Malnutrition Findings: Nutrition Notes Start: 07/19/20 09:37 Freq: Status: Active Protocol: Document 07/19/20 09:37 CW (Rec: 07/19/20 09:46 CW [id number]) Nutrition Notes Need for 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 No hgBA1c available . BG labs within normal limits . No DM rx. Pt states no prior knowledge of DM related problems but is familar with DM in general. Discussed with patient the importance of avoiding future DM related problems by monitoring carbohydrates as a preventive measure. Pt pleasant and accepted diet tips/handout but did not seem overtly interested d/t preceived risk preception. Nutrition Intervention Teaching Recipient Patient Learning Readiness Poor Teaching Methods Discussion,Handout Education Handouts Provided Counting Carbohyrates Barriers to Learning No Barriers RD phone number provided Yes Patient aware of follow up options Yes Revisit per MD consult or patient Sign Off request: Additional Comments S/O diet education not applicable at this time
[2020-07-21] MEDS: LOSARTAN 25 MG TAB PO SCH (10:07)
[2020-07-21] MEDS: SPIRONOLACTONE 25 MG TAB PO SCH (10:07)
[2020-07-21] MEDS: APIXABAN 5 MG TAB PO SCH ×2 (10:07→22:31)
[2020-07-21] MEDS: METOPROLOL TARTRATE 25 MG TAB PO SCH ×2 (10:07→22:32)
--- NOTE | 2020-07-21 10:25 | Progress Note ---
Assessment and Plan 60-year-old male with nonischemic cardiomyopathy congestive heart failure with atrial fibrillation with rapid ventricle rate will start digoxin IV 3 dosages. Continue beta-maddie losartan IV Bumex swelling has improved we will check labs in the morning - Patient Problems (1) Acute HFrEF (heart failure with reduced ejection fraction) Current Visit: Yes Status: Acute (2) Atrial fibrillation Current Visit: Yes Status: Acute Qualifiers: Atrial fibrillation type: persistent (not longstanding) Qualified Code(s): I48.19 - Other persistent atrial fibrillation; I48.1 - Persistent atrial fibrillation (3) Cardiomyopathy Current Visit: Yes Status: Chronic Qualifiers: Cardiomyopathy type: dilated Qualified Code(s): I42.0 - Dilated cardiomyopathy (4) NSVT (nonsustained ventricular tachycardia) Current Visit: Yes Status: Acute (5) Diabetes Current Visit: Yes Status: Chronic (6) HTN (hypertension) Current Visit: Yes Status: Chronic (7) NICM (nonischemic cardiomyopathy) Current Visit: Yes Status: Chronic Subjective Date of service: 07/21/20 Principal diagnosis: HF Interval history: sob is better Objective Vital Signs Temp Pulse Resp BP Pulse Ox 07/21/20 07:14 94 H 18 118/83 96 07/21/20 04:44 72 07/21/20 03:16 97.8 F 72 16 104/65 96 07/20/20 23:04 99.0 F 61 16 106/68 98 07/20/20 22:13 92 H 18 111/80 99 07/20/20 21:37 97 07/20/20 20:15 61 07/20/20 19:02 98.7 F 86 16 97/70 98 07/20/20 15:32 97.3 F L 97 H 18 115/77 100 07/20/20 14:54 74 117/68 07/20/20 14:53 74 117/68 07/20/20 12:00 85 07/20/20 11:30 95 - Physical Examination General: No Apparent Distress HEENT: Positive: PERRL, Normocephaly, Mucus Membranes Moist Neck: Positive: neck supple, trachea midline Cardiac: Positive: Irregularly Regular Lungs: Positive: clear to auscultation Neuro: Positive: Grossly Intact Abdomen: Positive: Other (abdominal swelling noted). Negative: Tender Skin: Negative: Rash Musculoskeletal: No Pain Extremities: Present: +2 Edema - Labs and Meds CBC 07/21/20 Range/Units 06:21 WBC 6.8 (4.5-11.0) K/mm3 RBC 4.47 (3.65-5.03) M/mm3 Hgb 11.8 (11.8-15.2) gm/dl Hct 36.2 (35.5-45.6) % Plt Count 174 (140-440) K/mm3 Lymph # (Auto) 1.4 (1.2-5.4) K/mm3 [place] # (Auto) 0.5 (0.0-0.8) K/mm3 Eos # (Auto) 0.0 (0.0-0.4) K/mm3 Baso # (Auto) 0.0 (0.0-0.1) K/mm3 Comprehensive Metabolic Panel 07/21/20 Range/Units 06:21 Sodium 142 (137-145) mmol/L Potassium 3.9 D (3.6-5.0) mmol/L Chloride 103.5 (98-107) mmol/L Carbon Dioxide 29 (22-30) mmol/L BUN 26 H (9-20) mg/dL Creatinine 1.1 (0.8-1.3) mg/dL Glucose 131 H (75-100) mg/dL Calcium 9.0 (8.4-10.2) mg/dL - Imaging and Cardiology EKG: report reviewed, image reviewed Echo: report reviewed Cardiac cath: report reviewed (normal coronaries and severe lv dsyfunction ) - Telemetry EKG Rhythm: Atrial Fibrillation (100-120's)
[2020-07-21] MEDS: DIGOXIN 0.5 MG/2 ML INJ IV SCH ×2 (12:20→17:35)
[2020-07-22] MEDS: DIGOXIN 0.5 MG/2 ML INJ IV SCH (01:09)
[2020-07-22 05:41] LABS: Basophils % (Auto) 0.3 % (0.0-1.8); Eosinophils # (Auto) 0.1 K/mm3 (0.0-0.4); Eosinophils % (Auto) 0.8 % (0.0-4.3); Hemoglobin 11.4 gm/dl (11.8-15.2); Lymphocytes # (Auto) 1.3 K/mm3 (1.2-5.4); Lymphocytes % (Auto) 19.3 % (13.4-35.0); Mean Corpuscular HGB Conc 33 % (32-34); Mean Corpuscular Volume 81 fl (84-94); Monocytes # (Auto) 0.8 K/mm3 (0.0-0.8); Monocytes % (Auto) 12.6 % (0.0-7.3); Platelet Count 164 K/mm3 (140-440); Red Blood Count 4.31 M/mm3 (3.65-5.03); Red Cell Distribution Width 19.3 % (13.2-15.2)
[2020-07-22 05:53] LABS: BUN/Creatinine Ratio 25; Blood Urea Nitrogen 28 mg/dL (9-20); Calcium 8.8 mg/dL (8.4-10.2); Hemolysis Index 4
[2020-07-22] MEDS: BUMETANIDE 1 MG/4 ML INJ IV SCH ×2 (06:37→17:23)
--- NOTE | 2020-07-22 09:00 | Progress Note ---
Assessment and Plan Assessment and plan: Acute on chronic systolic heart failure exacerbation. Pt reports h/o HFrEF, NICMP with normal coronaries via LHC in 2017 at [place] Atrial fibrillation. Nonischemic cardiomyopathy. EF 10 to 15% Medical noncompliance. 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 Obesity hypoventilation syndrome. Acute hypoxic respiratory failure. Etiology secondary to above. Diabetes mellitus type 2. Hyperlipidemia. 07/19/2020. Cardiology consultation pending. Follow-up echocardiogram to assess for systolic and diastolic dysfunction. Continue IV diuresis of Lasix. GDMT per cardiology. Continue O2 to maintain sats greater than 92%. Continue Accu- Cheks and sliding scale insulin. 07/20/2020. Echocardiogram revealed EF 10-15%, LV mildly dilated, mild LVH, impaired relaxation, LA mod dilated, mild AR, mod MR, mod pulm HTN with RVSP 58mmHg, trivial pericardial effusion. Cardiology recommends ischemic evaluation with [facility] given the severe cardiomyopathy. Continue IV Bumex for diuresis. Continue beta-maddie, ARB and Aldactone per cardiology recommendations. Full dose Lovenox twice daily and will convert to NOAC prior to discharge. Consider LifeVest placement. 07/21/2020. Patient is s/p LHC via [facility] on 07/20 which showed normal coronaries, severely dilated LV, EF 15-20%. Continue IV Bumex, beta-maddie, ARB and Aldactone. Replete potassium as needed. Follow-up BMP and magnesium in a.m. patient kevyn with A. fib and controlled ventricular rate. Cardiology started Eliquis. Cardiology also recommends cardiac defibrillator in setting of severe longstanding NICMP and NSVT. LifeVest ordered. Plan to evaluate for AICD candidacy as OP. Plan for discharge once LifeVest is in place and pt is near euvolemia. 07/22/2020. Patient with acute on chronic systolic heart failure, nonischemic cardiomyopathy with atrial fibrillation and RVR. Patient started on digoxin yesterday by cardiology. Continue IV Bumex, beta-maddie, losartan and Aldactone. Plan to evaluate for AICD candidacy as OP. Plan for discharge once LifeVest is in place and pt is near euvolemia. History Interval history: No new issues overnight. Hospitalist Physical - Constitutional Vitals: Temp Pulse Resp BP Pulse Ox 97.5 F L 62 16 92/46 97 07/22/20 04:38 07/22/20 07:21 07/22/20 07:21 07/22/20 07:21 07/22/20 07:21 General appearance: Present: no acute distress - EENT Eyes: Present: PERRL, EOM intact ENT: hearing intact, clear oral mucosa, dentition normal - Neck Neck: Present: supple, normal ROM - Respiratory Respiratory effort: normal Respiratory: bilateral: CTA - Cardiovascular Rhythm: regular Heart Sounds: Present: S1 & S2. Absent: gallop, rub - Extremities Extremities: no ischemia, No edema, Full ROM - Abdominal General gastrointestinal: soft, non-tender, non-distended, normal bowel sounds - Integumentary Integumentary: Present: clear, warm, dry - Neurologic Neurologic: CNII-XII intact, moves all extremities HEART Score - HEART Score EKG: Non-specific Age: 45-65 Risk factors: 1-2 risk factors Troponin: Troponin T 0.019 ng/mL (0.00-0.029) 07/18/20 15:50 Troponin: < normal limit Results - Labs CBC & Chem 7: 07/22/20 05:12 07/22/20 05:12 Labs: Laboratory Last Values WBC 6.5 K/mm3 (4.5-11.0) 07/22/20 05:12 RBC 4.31 M/mm3 (3.65-5.03) 07/22/20 05:12 Hgb 11.4 gm/dl (11.8-15.2) L 07/22/20 05:12 Hct 35.0 % (35.5-45.6) L 07/22/20 05:12 MCV 81 fl (84-94) L 07/22/20 05:12 MCH 26 pg (28-32) L 07/22/20 05:12 MCHC 33 % (32-34) 07/22/20 05:12 RDW 19.3 % (13.2-15.2) H 07/22/20 05:12 Plt Count 164 K/mm3 (140-440) 07/22/20 05:12 Lymph % (Auto) 19.3 % (13.4-35.0) 07/22/20 05:12 [place] % (Auto) 12.6 % (0.0-7.3) H 07/22/20 05:12 Eos % (Auto) 0.8 % (0.0-4.3) 07/22/20 05:12 Baso % (Auto) 0.3 % (0.0-1.8) 07/22/20 05:12 Lymph # (Auto) 1.3 K/mm3 (1.2-5.4) 07/22/20 05:12 [place] # (Auto) 0.8 K/mm3 (0.0-0.8) 07/22/20 05:12 Eos # (Auto) 0.1 K/mm3 (0.0-0.4) 07/22/20 05:12 Baso # (Auto) 0.0 K/mm3 (0.0-0.1) 07/22/20 05:12 Seg Neutrophils % 67.0 % (40.0-70.0) 07/22/20 05:12 Seg Neutrophils # 4.3 K/mm3 (1.8-7.7) 07/22/20 05:12 PT 13.1 Sec. (12.2-14.9) 07/20/20 04:43 INR 1.01 (0.87-1.13) 07/20/20 04:43 Sodium 142 mmol/L (137-145) 07/22/20 05:12 Potassium 3.7 mmol/L (3.6-5.0) 07/22/20 05:12 Chloride 103.8 mmol/L (98-107) 07/22/20 05:12 Carbon Dioxide 31 mmol/L (22-30) H 07/22/20 05:12 Anion Gap 11 mmol/L 07/22/20 05:12 BUN 28 mg/dL (9-20) H 07/22/20 05:12 Creatinine 1.1 mg/dL (0.8-1.3) 07/22/20 05:12 Estimated GFR > 60 ml/min 07/22/20 05:12 BUN/Creatinine Ratio 25 % 07/22/20 05:12 Glucose 109 mg/dL (75-100) H 07/22/20 05:12 POC Glucose 97 mg/dL (70-105) 07/21/20 19:45 Calcium 8.8 mg/dL (8.4-10.2) 07/22/20 05:12 Magnesium 1.70 mg/dL (1.7-2.3) 07/22/20 05:12 Total Creatine Kinase 147 units/L (55-170) 07/18/20 15:50 CK-MB (CK-2) 4.8 ng/mL (0.0-4.0) H 07/18/20 15:50 CK-MB (CK-2) Rel Index 3.2 (0-4) 07/18/20 15:50 Troponin T 0.019 ng/mL (0.00-0.029) 07/18/20 15:50 NT-Pro-B Natriuret Pep 2430 pg/mL (0-900) H 07/18/20 16:59 Triglycerides 58 mg/dL (2-149) 07/20/20 04:43 Cholesterol 124 mg/dL (50-199) 07/20/20 04:43 LDL Cholesterol Direct 79 mg/dL (50-130) 07/20/20 04:43 HDL Cholesterol 43 mg/dL (40-59) 07/20/20 04:43 Cholesterol/HDL Ratio 2.88 % 07/20/20 04:43 TSH 1.140 mlU/mL (0.270-4.200) 07/18/20 18:00 Free T4 1.31 ng/dL (0.76-1.46) 07/18/20 18:00 - Diagnostic Impressions Diagnostic Impressions: Echocardiogram 07/18/20 17:51 Transthoracic Echocardiogram Indication: SOB BP: 123/71 HR: 103 Conclusions *The left ventricular chamber size is mildly dilated. *Mild concentric left ventricular hypertrophy is observed. *Global left ventricular systolic function is severely decreased. *The estimated ejection fraction is 10-15%. *Abnormal left ventricular diastolic filling is observed, consistent with impaired relaxation. *The left atrium is moderately dilated. *There is mild aortic regurgitation. *There is moderate mitral regurgitation. *There is evidence of moderate pulmonary hypertension. *A trivial pericardial effusion is visualized. Findings Left Ventricle: The left ventricular chamber size is mildly dilated. Mild concentric left ventricular hypertrophy is observed. Global left ventricular systolic function is severely decreased. The estimated ejection fraction is 10-15%. Abnormal left ventricular diastolic filling is observed, consistent with impaired relaxation. Left Atrium: The left atrium is moderately dilated. Right Ventricle: The right ventricle is mild to moderately dilated. The right ventricular global systolic function is mildly reduced. Right Atrium: The right atrium is moderate to severely dilated. Aortic Valve: The aortic valve leaflets are mildly thickened. There is mild aortic regurgitation. Mitral Valve: The mitral valve leaflets are mildly thickened. There is moderate mitral regurgitation. Tricuspid Valve: The tricuspid valve leaflets are normal. There is mild tricuspid regurgitation. The right ventricular systolic pressure is calculated at 58 mmHg. There is evidence of moderate pulmonary hypertension. Pulmonic Valve: The pulmonic valve appears normal. There is trace pulmonic regurgitation. Pericardium: A trivial pericardial effusion is visualized. Aorta: There is mild dilatation of the ascending aorta. There is mild dilatation of the aortic root. Venous: The inferior vena cava is dilated. There is less than 50% respiratory change in the inferior vena cava dimension. Measurements Chambers 2D Name Value Normal Range IVSd (2D) 1.16 cm (0.6 - 1.1) LVPWd (2D) 1.17 cm (0.6 - 1.1) LVIDd (2D) 5.84 cm (3.7 - 5.6) LVIDs (2D) 5.72 cm (2 - 3.8) LV FS (2D) 2.04 % - Ao root diameter (2D) 4.41 cm (2 - 3.7) Volumes/Mass Name Value Normal Range LA ESV SP 4CH (A/L) 84.92 ml - LA ESV SP 2CH (A/L) 95.59 ml - LA ESV BP (A/L) 92.68 ml - LA ESV SP 4CH (MOD) 82 ml - LA ESV SP 2CH (MOD) 93.29 ml - Diastolic/Systolic Function Name Value Normal Range MV E-wave Vmax 0.92 m/sec - MV deceleration time 137.24 msec - Aortic Valve Name Value Normal Range AV Vmax 1.17 m/sec - AV VTI 19.22 cm - AV peak gradient 5.52 mmHg - AV mean gradient 3.43 mmHg - LVOT diameter 2.03 cm - LVOT Vmax 0.95 m/sec - LVOT VTI 15.34 cm - LVOT peak gradient 3.6 mmHg - LVOT mean gradient 2.26 mmHg - SV LVOT 49.86 ml - ALEXIA (continuity Vmax) 2.62 cm2 - ALEXIA (continuity VTI) 2.59 cm2 - AR PHT 438.17 msec - AR peak gradient 63.51 mmHg - Ascending Ao 3.99 cm - Mitral Valve Name Value Normal Range MV Vmax 1.57 m/sec - MV VTI 18.44 cm - MV peak gradient 11.39 mmHg - MV mean gradient 6.05 mmHg - MV PHT 78.85 msec - MR Vmax 4.61 m/sec - MR VTI 137.65 cm - MVA (PHT) 2.79 cm2 - MVA (continuity VTI) 2.7 cm2 - Tricuspid Valve Name Value Normal Range TR Vmax 3.27 m/sec - TR peak gradient 43 mmHg - RAP 15 mmHg - RVSP 58 mmHg - IVC diameter 2.47 cm (1.2 - 2.3) Pulmonic Valve/Qp:Qs Name Value Normal Range PV Vmax 0.64 m/sec - PV peak gradient 1.63 mmHg - ID end-diastolic Vmax 2.09 m/sec - PV acceleration time 102.76 msec - Dale/IV: Voiding Method Urinal Active Medications - Current Medications Current Medications: Generic Name Dose Route Start Last Admin Trade Name Freq PRN Reason Stop Dose Admin Acetaminophen 650 mg 07/18/20 17:49 Acetaminophen 325 Mg Tab PO Q4H PRN Pain MILD(1-3)/Fever >100.5/BOWSER Hydrocodone Bitart/Acetaminophen 1 each 07/20/20 12:41 07/21/20 17:00 Hydrocodone/Acetaminophen 5-325 Mg Tab PO 1 each Q4H PRN Administration Pain, Moderate (4-6) Albuterol 2.5 mg 07/18/20 17:49 Albuterol 2.5 Mg/3 Ml Nebu IH Q4HRT PRN Shortness Of Breath Apixaban 5 mg 07/20/20 22:00 07/21/20 22:31 Apixaban 5 Mg Tab PO 5 mg Q12HR PANFILO Administration Protocol Bumetanide 1 mg 07/19/20 18:00 07/22/20 06:37 Bumetanide 1 Mg/4 Ml Inj IV 1 mg BID@0600,1800 PANFILO Administration Sodium Chloride 500 mls @ 50 mls/hr 07/20/20 11:00 Nacl 0.9% 500 Ml IV DIRECT PANFILO Losartan Potassium 25 mg 07/19/20 11:19 07/21/20 10:07 Losartan 25 Mg Tab PO 25 mg QDAY PANFILO Administration Metoprolol Tartrate 25 mg 07/19/20 22:00 07/21/20 22:32 Metoprolol Tartrate 25 Mg Tab PO 25 mg BID PANFILO Administration Ondansetron HCl 4 mg 07/18/20 17:49 Ondansetron 4 Mg/2 Ml Inj IV Q8H PRN Nausea And Vomiting Sodium Chloride 10 ml 07/18/20 22:00 07/21/20 22:32 Sodium Chloride 0.9% 10 Ml Flush Syringe IV 10 ml BID PANFILO Administration Sodium Chloride 10 ml 07/18/20 17:49 07/19/20 06:47 Sodium Chloride 0.9% 10 Ml Flush Syringe IV 10 ml PRN PRN Administration LINE FLUSH Spironolactone 25 mg 07/19/20 12:00 07/21/20 10:07 Spironolactone 25 Mg Tab PO 25 mg QDAY PANFILO Administration Tramadol HCl 50 mg 07/20/20 12:41 Tramadol 50 Mg Tab PO Q4H PRN Pain, Mild (1-3) Nutrition/Malnutrition Assess - Dietary Evaluation Nutrition/Malnutrition Findings: Nutrition Notes Start: 07/19/20 09:37 Freq: Status: Active Protocol: Document 07/19/20 09:37 CW (Rec: 07/19/20 09:46 CW [id number]) Nutrition Notes Need for 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 No hgBA1c available . BG labs within normal limits . No DM rx. Pt states no prior knowledge of DM related problems but is familar with DM in general. Discussed with patient the importance of avoiding future DM related problems by monitoring carbohydrates as a preventive measure. Pt pleasant and accepted diet tips/handout but did not seem overtly interested d/t preceived risk preception. Nutrition Intervention Teaching Recipient Patient Learning Readiness Poor Teaching Methods Discussion,Handout Education Handouts Provided Counting Carbohyrates Barriers to Learning No Barriers RD phone number provided Yes Patient aware of follow up options Yes Revisit per MD consult or patient Sign Off request: Additional Comments S/O diet education not applicable at this time
[2020-07-22] MEDS: METOPROLOL TARTRATE 25 MG TAB PO SCH ×2 (09:34→21:49)
[2020-07-22] MEDS: APIXABAN 5 MG TAB PO SCH ×2 (09:34→21:48)
[2020-07-22] MEDS: LOSARTAN 25 MG TAB PO SCH (09:35)
[2020-07-22] MEDS: SPIRONOLACTONE 25 MG TAB PO SCH (09:38)
[2020-07-22] MEDS ORDERED: MAGNESIUM SULFATE 2 GM/50 ML BAG IV ONE (09:48)
--- NOTE | 2020-07-22 09:49 | Progress Note ---
Assessment and Plan 60-year-old male with nonischemic cardiomyopathy congestive heart failure with heart rate has improved after digoxin start oral digoxin along with Lopressor. Losartan changed to p.o. diuretics in the a.m. discharge in the morning with LifeVest and follow-up in the cardiology clinic in 1 week - Patient Problems (1) Acute HFrEF (heart failure with reduced ejection fraction) Current Visit: Yes Status: Acute (2) Atrial fibrillation Current Visit: Yes Status: Acute Qualifiers: Atrial fibrillation type: persistent (not longstanding) Qualified Code(s): I48.19 - Other persistent atrial fibrillation; I48.1 - Persistent atrial fibrillation (3) Cardiomyopathy Current Visit: Yes Status: Chronic Qualifiers: Cardiomyopathy type: dilated Qualified Code(s): I42.0 - Dilated cardiomyopathy (4) NSVT (nonsustained ventricular tachycardia) Current Visit: Yes Status: Acute (5) Diabetes Current Visit: Yes Status: Chronic (6) HTN (hypertension) Current Visit: Yes Status: Chronic (7) NICM (nonischemic cardiomyopathy) Current Visit: Yes Status: Chronic Subjective Date of service: 07/22/20 Principal diagnosis: HF Interval history: Shortness of breath has improved able to lie down flat Objective Vital Signs Temp Pulse Resp BP BP Pulse Ox 07/22/20 09:38 62 92/46 07/22/20 09:35 62 92/46 07/22/20 09:34 62 92/46 07/22/20 09:05 98 07/22/20 07:21 62 16 92/46 97 07/22/20 04:38 97.5 F L 67 18 146/93 100 07/22/20 01:09 80 108/75 07/22/20 01:08 80 108/75 07/22/20 01:07 108/75 07/22/20 01:03 80 07/22/20 00:46 68 07/22/20 00:44 95/67 07/22/20 00:05 81 98 07/21/20 23:51 97.3 F L 20 94/69 07/21/20 23:06 69 07/21/20 22:32 68 106/63 07/21/20 20:27 98.2 F 68 18 106/63 98 07/21/20 17:35 88 07/21/20 15:37 92/60 07/21/20 15:36 16 86/65 07/21/20 12:20 80 07/21/20 12:00 80 07/21/20 11:08 84 18 97/67 96 07/21/20 10:00 98 - Physical Examination General: No Apparent Distress HEENT: Positive: PERRL, Normocephaly, Mucus Membranes Moist Neck: Positive: neck supple, trachea midline Cardiac: Positive: Irregularly Regular Lungs: Positive: clear to auscultation Neuro: Positive: Grossly Intact Abdomen: Positive: Other (abdominal swelling noted). Negative: Tender Skin: Negative: Rash Musculoskeletal: No Pain Extremities: Present: +1 Edema - Labs and Meds CBC 07/22/20 Range/Units 05:12 WBC 6.5 (4.5-11.0) K/mm3 RBC 4.31 (3.65-5.03) M/mm3 Hgb 11.4 L (11.8-15.2) gm/dl Hct 35.0 L (35.5-45.6) % Plt Count 164 (140-440) K/mm3 Lymph # (Auto) 1.3 (1.2-5.4) K/mm3 [place] # (Auto) 0.8 (0.0-0.8) K/mm3 Eos # (Auto) 0.1 (0.0-0.4) K/mm3 Baso # (Auto) 0.0 (0.0-0.1) K/mm3 Comprehensive Metabolic Panel 07/22/20 Range/Units 05:12 Sodium 142 (137-145) mmol/L Potassium 3.7 (3.6-5.0) mmol/L Chloride 103.8 (98-107) mmol/L Carbon Dioxide 31 H (22-30) mmol/L BUN 28 H (9-20) mg/dL Creatinine 1.1 (0.8-1.3) mg/dL Glucose 109 H (75-100) mg/dL Calcium 8.8 (8.4-10.2) mg/dL - Imaging and Cardiology EKG: report reviewed, image reviewed Echo: report reviewed Cardiac cath: report reviewed (normal coronaries and severe lv dsyfunction ) - Telemetry EKG Rhythm: Atrial Fibrillation (70)
[2020-07-22] MEDS: DIGOXIN 0.125 MG TAB PO SCH (17:23)
[2020-07-23 05:46] LABS: Basophils % (Auto) 0.8 % (0.0-1.8); Eosinophils # (Auto) 0.1 K/mm3 (0.0-0.4); Eosinophils % (Auto) 0.9 % (0.0-4.3); Hematocrit 34.9 % (35.5-45.6); Hemoglobin 11.1 gm/dl (11.8-15.2); Lymphocytes # (Auto) 1.3 K/mm3 (1.2-5.4); Lymphocytes % (Auto) 21.6 % (13.4-35.0); Mean Corpuscular HGB Conc 32 % (32-34); Mean Corpuscular Volume 82 fl (84-94); Monocytes # (Auto) 0.6 K/mm3 (0.0-0.8); Monocytes % (Auto) 9.8 % (0.0-7.3); Platelet Count 166 K/mm3 (140-440); Red Blood Count 4.27 M/mm3 (3.65-5.03); Red Cell Distribution Width 19.3 % (13.2-15.2)
[2020-07-23 06:51] LABS: BUN/Creatinine Ratio 27; Blood Urea Nitrogen 30 mg/dL (9-20); Calcium 8.9 mg/dL (8.4-10.2); Hemolysis Index 3
--- NOTE | 2020-07-23 08:05 | Progress Note ---
Assessment and Plan Assessment and plan: Acute on chronic systolic heart failure exacerbation. Pt reports h/o HFrEF, NICMP with normal coronaries via LHC in 2017 at [place] Atrial fibrillation. Nonischemic cardiomyopathy. EF 10 to 15% Medical noncompliance. Pt admits that he has not taken any prescription medications or followed up with a electroplater automatic since 2017. Obesity hypoventilation syndrome. Acute hypoxic respiratory failure. Etiology secondary to above. Diabetes mellitus type 2. Hyperlipidemia. 07/19/2020. Cardiology consultation pending. Follow-up echocardiogram to assess for systolic and diastolic dysfunction. Continue IV diuresis of Lasix. GDMT per cardiology. Continue O2 to maintain sats greater than 92%. Continue Accu- Cheks and sliding scale insulin. 07/20/2020. Echocardiogram revealed EF 10-15%, LV mildly dilated, mild LVH, impaired relaxation, LA mod dilated, mild AR, mod MR, mod pulm HTN with RVSP 58mmHg, trivial pericardial effusion. Cardiology recommends ischemic evaluation with [facility] given the severe cardiomyopathy. Continue IV Bumex for diuresis. Continue beta-maddie, ARB and Aldactone per cardiology recommendations. Full dose Lovenox twice daily and will convert to NOAC prior to discharge. Consider LifeVest placement. 07/21/2020. Patient is s/p LHC via [facility] on 07/20 which showed normal coronaries, severely dilated LV, EF 15-20%. Continue IV Bumex, beta-maddie, ARB and Aldactone. Replete potassium as needed. Follow-up BMP and magnesium in a.m. patient kevyn with A. fib and controlled ventricular rate. Cardiology started Eliquis. Cardiology also recommends cardiac defibrillator in setting of severe longstanding NICMP and NSVT. LifeVest ordered. Plan to evaluate for AICD candidacy as OP. Plan for discharge once LifeVest is in place and pt is near euvolemia. 07/22/2020. Patient with acute on chronic systolic heart failure, nonischemic cardiomyopathy with atrial fibrillation and RVR. Patient started on digoxin yesterday by cardiology. Continue IV Bumex, beta-maddie, losartan and Aldactone. Plan to evaluate for AICD candidacy as OP. Plan for discharge once LifeVest is in place and pt is near euvolemia. 07/23/2020. Continue digoxin, Bumex, Eliquis, losartan, metoprolol and spironolactone per cardiology recommendations. Plan to evaluate for AICD candidacy as OP. Plan for discharge once LifeVest is in place. PT evaluation. History Interval history: No new issues overnight. Hospitalist Physical - Constitutional Vitals: Temp Pulse Resp BP Pulse Ox 98.0 F 61 18 102/54 99 07/23/20 04:58 07/23/20 04:58 07/23/20 04:58 07/23/20 04:58 07/23/20 04:58 General appearance: Present: no acute distress - EENT Eyes: Present: PERRL, EOM intact ENT: hearing intact, clear oral mucosa, dentition normal - Neck Neck: Present: supple, normal ROM - Respiratory Respiratory effort: normal Respiratory: bilateral: CTA - Cardiovascular Rhythm: regular Heart Sounds: Present: S1 & S2. Absent: gallop, rub - Extremities Extremities: no ischemia, No edema, Full ROM - Abdominal General gastrointestinal: soft, non-tender, non-distended, normal bowel sounds - Integumentary Integumentary: Present: clear, warm, dry - Neurologic Neurologic: CNII-XII intact, moves all extremities HEART Score - HEART Score EKG: Non-specific Age: 45-65 Risk factors: 1-2 risk factors Troponin: Troponin T 0.019 ng/mL (0.00-0.029) 07/18/20 15:50 Troponin: < normal limit Results - Labs CBC & Chem 7: 07/23/20 05:13 07/23/20 05:13 Labs: Laboratory Last Values WBC 6.2 K/mm3 (4.5-11.0) 07/23/20 05:13 RBC 4.27 M/mm3 (3.65-5.03) 07/23/20 05:13 Hgb 11.1 gm/dl (11.8-15.2) L 07/23/20 05:13 Hct 34.9 % (35.5-45.6) L 07/23/20 05:13 MCV 82 fl (84-94) L 07/23/20 05:13 MCH 26 pg (28-32) L 07/23/20 05:13 MCHC 32 % (32-34) 07/23/20 05:13 RDW 19.3 % (13.2-15.2) H 07/23/20 05:13 Plt Count 166 K/mm3 (140-440) 07/23/20 05:13 Lymph % (Auto) 21.6 % (13.4-35.0) 07/23/20 05:13 [place] % (Auto) 9.8 % (0.0-7.3) H 07/23/20 05:13 Eos % (Auto) 0.9 % (0.0-4.3) 07/23/20 05:13 Baso % (Auto) 0.8 % (0.0-1.8) 07/23/20 05:13 Lymph # (Auto) 1.3 K/mm3 (1.2-5.4) 07/23/20 05:13 [place] # (Auto) 0.6 K/mm3 (0.0-0.8) 07/23/20 05:13 Eos # (Auto) 0.1 K/mm3 (0.0-0.4) 07/23/20 05:13 Baso # (Auto) 0.0 K/mm3 (0.0-0.1) 07/23/20 05:13 Seg Neutrophils % 66.9 % (40.0-70.0) 07/23/20 05:13 Seg Neutrophils # 4.1 K/mm3 (1.8-7.7) 07/23/20 05:13 PT 13.1 Sec. (12.2-14.9) 07/20/20 04:43 INR 1.01 (0.87-1.13) 07/20/20 04:43 Sodium 143 mmol/L (137-145) 07/23/20 05:13 Potassium 3.7 mmol/L (3.6-5.0) 07/23/20 05:13 Chloride 102.9 mmol/L (98-107) 07/23/20 05:13 Carbon Dioxide 33 mmol/L (22-30) H 07/23/20 05:13 Anion Gap 11 mmol/L 07/23/20 05:13 BUN 30 mg/dL (9-20) H 07/23/20 05:13 Creatinine 1.1 mg/dL (0.8-1.3) 07/23/20 05:13 Estimated GFR > 60 ml/min 07/23/20 05:13 BUN/Creatinine Ratio 27 % 07/23/20 05:13 Glucose 116 mg/dL (75-100) H 07/23/20 05:13 POC Glucose 82 mg/dL (70-105) 07/22/20 21:27 Calcium 8.9 mg/dL (8.4-10.2) 07/23/20 05:13 Magnesium 1.90 mg/dL (1.7-2.3) 07/23/20 05:13 Total Creatine Kinase 147 units/L (55-170) 07/18/20 15:50 CK-MB (CK-2) 4.8 ng/mL (0.0-4.0) H 07/18/20 15:50 CK-MB (CK-2) Rel Index 3.2 (0-4) 07/18/20 15:50 Troponin T 0.019 ng/mL (0.00-0.029) 07/18/20 15:50 NT-Pro-B Natriuret Pep 2430 pg/mL (0-900) H 07/18/20 16:59 Triglycerides 58 mg/dL (2-149) 07/20/20 04:43 Cholesterol 124 mg/dL (50-199) 07/20/20 04:43 LDL Cholesterol Direct 79 mg/dL (50-130) 07/20/20 04:43 HDL Cholesterol 43 mg/dL (40-59) 07/20/20 04:43 Cholesterol/HDL Ratio 2.88 % 07/20/20 04:43 TSH 1.140 mlU/mL (0.270-4.200) 07/18/20 18:00 Free T4 1.31 ng/dL (0.76-1.46) 07/18/20 18:00 - Diagnostic Impressions Diagnostic Impressions: Echocardiogram 07/18/20 17:51 Transthoracic Echocardiogram Indication: SOB BP: 123/71 HR: 103 Conclusions *The left ventricular chamber size is mildly dilated. *Mild concentric left ventricular hypertrophy is observed. *Global left ventricular systolic function is severely decreased. *The estimated ejection fraction is 10-15%. *Abnormal left ventricular diastolic filling is observed, consistent with impaired relaxation. *The left atrium is moderately dilated. *There is mild aortic regurgitation. *There is moderate mitral regurgitation. *There is evidence of moderate pulmonary hypertension. *A trivial pericardial effusion is visualized. Findings Left Ventricle: The left ventricular chamber size is mildly dilated. Mild concentric left ventricular hypertrophy is observed. Global left ventricular systolic function is severely decreased. The estimated ejection fraction is 10-15%. Abnormal left ventricular diastolic filling is observed, consistent with impaired relaxation. Left Atrium: The left atrium is moderately dilated. Right Ventricle: The right ventricle is mild to moderately dilated. The right ventricular global systolic function is mildly reduced. Right Atrium: The right atrium is moderate to severely dilated. Aortic Valve: The aortic valve leaflets are mildly thickened. There is mild aortic regurgitation. Mitral Valve: The mitral valve leaflets are mildly thickened. There is moderate mitral regurgitation. Tricuspid Valve: The tricuspid valve leaflets are normal. There is mild tricuspid regurgitation. The right ventricular systolic pressure is calculated at 58 mmHg. There is evidence of moderate pulmonary hypertension. Pulmonic Valve: The pulmonic valve appears normal. There is trace pulmonic regurgitation. Pericardium: A trivial pericardial effusion is visualized. Aorta: There is mild dilatation of the ascending aorta. There is mild dilatation of the aortic root. Venous: The inferior vena cava is dilated. There is less than 50% respiratory change in the inferior vena cava dimension. Measurements Chambers 2D Name Value Normal Range IVSd (2D) 1.16 cm (0.6 - 1.1) LVPWd (2D) 1.17 cm (0.6 - 1.1) LVIDd (2D) 5.84 cm (3.7 - 5.6) LVIDs (2D) 5.72 cm (2 - 3.8) LV FS (2D) 2.04 % - Ao root diameter (2D) 4.41 cm (2 - 3.7) Volumes/Mass Name Value Normal Range LA ESV SP 4CH (A/L) 84.92 ml - LA ESV SP 2CH (A/L) 95.59 ml - LA ESV BP (A/L) 92.68 ml - LA ESV SP 4CH (MOD) 82 ml - LA ESV SP 2CH (MOD) 93.29 ml - Diastolic/Systolic Function Name Value Normal Range MV E-wave Vmax 0.92 m/sec - MV deceleration time 137.24 msec - Aortic Valve Name Value Normal Range AV Vmax 1.17 m/sec - AV VTI 19.22 cm - AV peak gradient 5.52 mmHg - AV mean gradient 3.43 mmHg - LVOT diameter 2.03 cm - LVOT Vmax 0.95 m/sec - LVOT VTI 15.34 cm - LVOT peak gradient 3.6 mmHg - LVOT mean gradient 2.26 mmHg - SV LVOT 49.86 ml - ALEXIA (continuity Vmax) 2.62 cm2 - ALEXIA (continuity VTI) 2.59 cm2 - AR PHT 438.17 msec - AR peak gradient 63.51 mmHg - Ascending Ao 3.99 cm - Mitral Valve Name Value Normal Range MV Vmax 1.57 m/sec - MV VTI 18.44 cm - MV peak gradient 11.39 mmHg - MV mean gradient 6.05 mmHg - MV PHT 78.85 msec - MR Vmax 4.61 m/sec - MR VTI 137.65 cm - MVA (PHT) 2.79 cm2 - MVA (continuity VTI) 2.7 cm2 - Tricuspid Valve Name Value Normal Range TR Vmax 3.27 m/sec - TR peak gradient 43 mmHg - RAP 15 mmHg - RVSP 58 mmHg - IVC diameter 2.47 cm (1.2 - 2.3) Pulmonic Valve/Qp:Qs Name Value Normal Range PV Vmax 0.64 m/sec - PV peak gradient 1.63 mmHg - [place] end-diastolic Vmax 2.09 m/sec - PV acceleration time 102.76 msec - Dale/IV: Voiding Method Urinal Active Medications - Current Medications Current Medications: Generic Name Dose Route Start Last Admin Trade Name Freq PRN Reason Stop Dose Admin Acetaminophen 650 mg 07/18/20 17:49 Acetaminophen 325 Mg Tab PO Q4H PRN Pain MILD(1-3)/Fever >100.5/BOWSER Hydrocodone Bitart/Acetaminophen 1 each 07/20/20 12:41 07/21/20 17:00 Hydrocodone/Acetaminophen 5-325 Mg Tab PO 1 each Q4H PRN Administration Pain, Moderate (4-6) Albuterol 2.5 mg 07/18/20 17:49 Albuterol 2.5 Mg/3 Ml Nebu IH Q4HRT PRN Shortness Of Breath Apixaban 5 mg 07/20/20 22:00 07/22/20 21:48 Apixaban 5 Mg Tab PO 5 mg Q12HR PANFILO Administration Protocol Bumetanide 1 mg 07/23/20 10:00 Bumetanide 1 Mg Tab PO 0600,1800 PANFILO Digoxin 0.125 mg 07/22/20 17:00 07/22/20 17:23 Digoxin 0.125 Mg Tab PO 0.125 mg DAILY@1700 PANFILO Administration Sodium Chloride 500 mls @ 50 mls/hr 07/20/20 11:00 Nacl 0.9% 500 Ml IV DIRECT PANFILO Losartan Potassium 25 mg 07/19/20 11:19 07/22/20 09:35 Losartan 25 Mg Tab PO 25 mg QDAY PANFILO Administration Metoprolol Tartrate 25 mg 07/19/20 22:00 07/22/20 21:49 Metoprolol Tartrate 25 Mg Tab PO 25 mg BID PANFILO Administration Ondansetron HCl 4 mg 07/18/20 17:49 Ondansetron 4 Mg/2 Ml Inj IV Q8H PRN Nausea And Vomiting Sodium Chloride 10 ml 07/18/20 22:00 07/22/20 21:50 Sodium Chloride 0.9% 10 Ml Flush Syringe IV 10 ml BID PANFILO Administration Sodium Chloride 10 ml 07/18/20 17:49 07/19/20 06:47 Sodium Chloride 0.9% 10 Ml Flush Syringe IV 10 ml PRN PRN Administration LINE FLUSH Spironolactone 25 mg 07/19/20 12:00 07/22/20 09:38 Spironolactone 25 Mg Tab PO 25 mg QDAY PANFILO Administration Tramadol HCl 50 mg 07/20/20 12:41 Tramadol 50 Mg Tab PO Q4H PRN Pain, Mild (1-3) Nutrition/Malnutrition Assess - Dietary Evaluation Nutrition/Malnutrition Findings: Nutrition Notes Start: 07/19/20 09:37 Freq: Status: Active Protocol: Document 07/19/20 09:37 CW (Rec: 07/19/20 09:46 CW [id number]) Nutrition Notes Need for Assessment generated from: 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 No hgBA1c available . BG labs within normal limits . No DM rx. Pt states no prior knowledge of DM related problems but is familar with DM in general. Discussed with patient the importance of avoiding future DM related problems by monitoring carbohydrates as a preventive measure. Pt pleasant and accepted diet tips/handout but did not seem overtly interested d/t preceived risk preception. Nutrition Intervention Teaching Recipient Patient Learning Readiness Poor Teaching Methods Discussion,Handout Education Handouts Provided Counting Carbohyrates Barriers to Learning No Barriers RD phone number provided Yes Patient aware of follow up options Yes Revisit per MD consult or patient Sign Off request: Additional Comments S/O diet education not applicable at this time
[2020-07-23] MEDS: APIXABAN 5 MG TAB PO SCH ×2 (09:41→21:48)
[2020-07-23] MEDS: SPIRONOLACTONE 25 MG TAB PO SCH (09:41)
[2020-07-23] MEDS: METOPROLOL TARTRATE 25 MG TAB PO SCH ×2 (09:41→21:48)
[2020-07-23] MEDS: LOSARTAN 25 MG TAB PO SCH (09:41)
--- NOTE | 2020-07-23 10:55 | Progress Note ---
Assessment and Plan Currently stable cardiac status. Pt is net neg >10kg. Pt is awaiting LifeVest placement. Pending LifeVest placement, pt may discharge from cardiology standpoint on present cardiac regimen, including Eliquis, PO bumex, digoxin, lopressor, losartan, aldactone. Follow up in our [place] office with Dr. Lukasz Mao on 08/03/2020 @ 3:30PM. The patient has been seen in conjunction with Dr. Narayan who agrees with the assessment and plan of care. - Patient Problems (1) Acute HFrEF (heart failure with reduced ejection fraction) Current Visit: Yes Status: Acute (2) NICM (nonischemic cardiomyopathy) Current Visit: Yes Status: Chronic (3) Normal coronary arteries Current Visit: Yes Status: Chronic (4) Atrial fibrillation and flutter Current Visit: Yes Status: Chronic (5) NSVT (nonsustained ventricular tachycardia) Current Visit: Yes Status: Acute (6) HTN (hypertension) Current Visit: Yes Status: Chronic (7) Diabetes Current Visit: Yes Status: Chronic (8) History of prostate cancer Current Visit: Yes Status: Chronic (9) History of ETOH abuse Current Visit: Yes Status: Chronic (10) Medical non-compliance Current Visit: Yes Status: Chronic Subjective Date of service: 07/23/20 Principal diagnosis: HF Interval history: pt resting comfortably in bed, feeling better. tele reviewed - in AFlutter HR 70-80s with some isolated PVCs and 2-3 beat runs NSVT noted overnight, pt asymptomatic. Objective Last Vital Signs Temp 98.0 F 07/23/20 04:58 Pulse 61 07/23/20 04:58 Resp 18 07/23/20 04:58 BP 102/54 07/23/20 04:58 Pulse Ox 99 07/23/20 04:58 - Physical Examination General: No Apparent Distress HEENT: Positive: PERRL, Normocephaly, Mucus Membranes Moist Neck: Positive: neck supple, trachea midline Cardiac: Positive: irregularly irregular, S1/S2 Lungs: Positive: Decreased Breath Sounds Neuro: Positive: Grossly Intact Abdomen: Positive: Other (abdominal swelling noted). Negative: Tender Skin: Negative: Rash Musculoskeletal: No Pain Extremities: Present: +1 Edema - Labs and Meds CBC 07/23/20 Range/Units 05:13 WBC 6.2 (4.5-11.0) K/mm3 RBC 4.27 (3.65-5.03) M/mm3 Hgb 11.1 L (11.8-15.2) gm/dl Hct 34.9 L (35.5-45.6) % Plt Count 166 (140-440) K/mm3 Lymph # (Auto) 1.3 (1.2-5.4) K/mm3 [place] # (Auto) 0.6 (0.0-0.8) K/mm3 Eos # (Auto) 0.1 (0.0-0.4) K/mm3 Baso # (Auto) 0.0 (0.0-0.1) K/mm3 Comprehensive Metabolic Panel 07/23/20 Range/Units 05:13 Sodium 143 (137-145) mmol/L Potassium 3.7 (3.6-5.0) mmol/L Chloride 102.9 (98-107) mmol/L Carbon Dioxide 33 H (22-30) mmol/L BUN 30 H (9-20) mg/dL Creatinine 1.1 (0.8-1.3) mg/dL Glucose 116 H (75-100) mg/dL Calcium 8.9 (8.4-10.2) mg/dL - Imaging and Cardiology EKG: report reviewed, image reviewed Echo: report reviewed Cardiac cath: report reviewed (normal coronaries and severe lv dsyfunction ) - Telemetry EKG Rhythm: Atrial Flutter
[2020-07-23] MEDS: BUMETANIDE 1 MG TAB PO SCH ×2 (12:42→19:41)
[2020-07-23] MEDS: DIGOXIN 0.125 MG TAB PO SCH (19:41)
[2020-07-24] MEDS: BUMETANIDE 1 MG TAB PO SCH (06:40)
--- NOTE | 2020-07-24 10:00 | Progress Note ---
Assessment and Plan Currently stable cardiac status. LifeVest is in place. Pt may discharge from cardiology standpoint on present cardiac regimen, including Eliquis, PO bumex, digoxin, lopressor, losartan, aldactone. Follow up in our [place] office with Dr. Lukasz Mao on 08/03/2020 @ 3:30PM. The patient has been seen in conjunction with Dr. Narayan who agrees with the assessment and plan of care. - Patient Problems (1) Acute HFrEF (heart failure with reduced ejection fraction) Current Visit: Yes Status: Acute (2) NICM (nonischemic cardiomyopathy) Current Visit: Yes Status: Chronic (3) Normal coronary arteries Current Visit: Yes Status: Chronic (4) Atrial fibrillation and flutter Current Visit: Yes Status: Chronic (5) NSVT (nonsustained ventricular tachycardia) Current Visit: Yes Status: Acute (6) HTN (hypertension) Current Visit: Yes Status: Chronic (7) Diabetes Current Visit: Yes Status: Chronic (8) History of prostate cancer Current Visit: Yes Status: Chronic (9) History of ETOH abuse Current Visit: Yes Status: Chronic (10) Medical non-compliance Current Visit: Yes Status: Chronic Subjective Date of service: 07/24/20 Principal diagnosis: HF Interval history: pt resting comfortably in bed, feeling better. tele reviewed - in AFlutter HR 70-80s with some isolated PVCs and 2-3 beat runs NSVT noted overnight, pt asymptomatic. LifeVest is in place. Objective Last Vital Signs Temp 97.9 F 07/24/20 08:00 Pulse 92 H 07/24/20 08:49 Resp 18 07/24/20 08:00 BP 135/82 07/24/20 08:00 Pulse Ox 98 07/24/20 08:00 - Physical Examination General: No Apparent Distress HEENT: Positive: PERRL, Normocephaly, Mucus Membranes Moist Neck: Positive: neck supple, trachea midline Cardiac: Positive: irregularly irregular, S1/S2 Lungs: Positive: Decreased Breath Sounds Neuro: Positive: Grossly Intact Abdomen: Positive: Other (abdominal swelling noted). Negative: Tender Skin: Negative: Rash Musculoskeletal: No Pain Extremities: Present: +1 Edema - Imaging and Cardiology EKG: report reviewed, image reviewed Echo: report reviewed Cardiac cath: report reviewed (normal coronaries and severe lv dsyfunction ) - Telemetry EKG Rhythm: Atrial Fibrillation
[2020-07-24] MEDS: SPIRONOLACTONE 25 MG TAB PO SCH (10:44)
[2020-07-24] MEDS: METOPROLOL TARTRATE 25 MG TAB PO SCH (10:44)
[2020-07-24] MEDS: APIXABAN 5 MG TAB PO SCH (10:44)
--- NOTE | 2020-07-24 11:22 | Discharge Summary ---
Providers - Providers Date of Admission: 07/18/20 17:49 Date of discharge: 07/24/20 Attending physician: MARIANA BERMEO 07/18/20 17:49 Consult to Physician [CONS] Routine Comment: Consulting Provider: PATRICIA JOSHUA Physician Instructions: Reason For Exam: CHF 07/18/20 18:12 Consult to Wound/ET Nurse [CONS] Routine Reason For Exam: wound eval 07/20/20 12:41 Consult to Cardiac Rehabilitation [CONS] Routine Reason For Exam: Cardiac Rehab Evaluation 07/23/20 08:06 Physical Therapy Evaluation and Treat [CONS] Routine Comment: Reason For Exam: deconditioning 07/24/20 10:16 Consult to Wound/ET Nurse [CONS] Routine Reason For Exam: wound eval Primary care physician: [employer] Hospitalization Condition: Good Hospital course: 60 YO Male with DM, Obesity Hypoventilation Syndrome, Metabolic Syndrome, CHF, HLD presents to ED for evaluation. Pt reports "My legs are swelling, and I cant breathe". Patient states that he has experienced shortness of breath, lower extremity edema, dyspnea on exertion, dyspnea at rest, decreased exercise tolerance, orthopnea, paroxysmal nocturnal dyspnea over the last 1 week with worsening symptoms over the last 2 days. Patient also acknowledges chest discomfort. Patient transported to [facility] via private vehicle for further care and evaluation of the aforementioned symptoms. The patient was seen and evaluated in the emergency department. All lab and imaging studies reviewed. Patient found to have clinical symptoms consistent with CHF decompensation complicated by pulmonary edema. Patient initiated on CHF protocol and admitted to telemetry due to increased risk of worsening symptoms. Patient denies fever, chills, chest pain, palpitation, productive cough, skin rash, recent ill contacts, prolonged travel, prolonged immobility, unilateral leg swelling, calf pain, individual/family history of DVT/PE/bleeding/blood clotting disorders, or known exposure to COVID-19. No prior admission for review. No medication listed at time of admission for reconciliation. Advanced care planning conducted in ED. 07/19/2020. Cardiology consultation pending. Follow-up echocardiogram to assess for systolic and diastolic dysfunction. Continue IV diuresis of Lasix. GDMT per cardiology. Continue O2 to maintain sats greater than 92%. Continue Accu- Cheks and sliding scale insulin. 07/20/2020. Echocardiogram revealed EF 10-15%, LV mildly dilated, mild LVH, impaired relaxation, LA mod dilated, mild AR, mod MR, mod pulm HTN with RVSP 58mmHg, trivial pericardial effusion. Cardiology recommends ischemic evaluation with [facility] given the severe cardiomyopathy. Continue IV Bumex for diuresis. Continue beta-maddie, ARB and Aldactone per cardiology recommendations. Full dose Lovenox twice daily and will convert to NOAC prior to discharge. Consider LifeVest placement. 07/21/2020. Patient is s/p LHC via RRA on 07/20 which showed normal coronaries, severely dilated LV, EF 15-20%. Continue IV Bumex, beta-maddie, ARB and Aldactone. Replete potassium as needed. Follow-up BMP and magnesium in a.m. patient kevyn with A. fib and controlled ventricular rate. Cardiology started Eliquis. Cardiology also recommends cardiac defibrillator in setting of severe longstanding NICMP and NSVT. LifeVest ordered. Plan to evaluate for AICD candidacy as OP. Plan for discharge once LifeVest is in place and pt is near euvolemia. 07/22/2020. Patient with acute on chronic systolic heart failure, nonischemic cardiomyopathy with atrial fibrillation and RVR. Patient started on digoxin yesterday by cardiology. Continue IV Bumex, beta-maddie, losartan and Aldactone. Plan to evaluate for AICD candidacy as OP. Plan for discharge once LifeVest is in place and pt is near euvolemia. 07/23/2020. Continue digoxin, Bumex, Eliquis, losartan, metoprolol and spironolactone per cardiology recommendations. Plan to evaluate for AICD candidacy as OP. Plan for discharge once LifeVest is in place. PT evaluation. 07/24/2020. Life vest has been provided. He will be discharged home to follow up with cardiology in 2 weeks. Home medications have been prescribed. Patient agree with plan Disposition: [id number] TO HOME OR SELFCARE Time spent for discharge: 40 mins - Discharge Diagnoses (1) Acute HFrEF (heart failure with reduced ejection fraction) Status: Acute (2) Atrial fibrillation Status: Acute Qualifiers: Atrial fibrillation type: persistent (not longstanding) Qualified Code(s): I48.19 - Other persistent atrial fibrillation; I48.1 - Persistent atrial fibrillation (3) NSVT (nonsustained ventricular tachycardia) Status: Acute (4) Cardiomyopathy Status: Chronic Qualifiers: Cardiomyopathy type: dilated Qualified Code(s): I42.0 - Dilated cardiomyopathy (5) Diabetes Status: Chronic (6) HTN (hypertension) Status: Chronic Core Measure Documentation - Palliative Care Palliative Care/ Comfort Measures: Not Applicable - Core Measures Any of the following diagnoses?: none Exam - Constitutional Vitals: Temp Pulse Resp BP Pulse Ox 97.9 F 65 18 135/82 98 07/24/20 08:00 07/24/20 10:44 07/24/20 08:00 07/24/20 10:44 07/24/20 08:00 General appearance: Present: no acute distress, well-nourished - EENT Eyes: Present: PERRL ENT: hearing intact, clear oral mucosa - Neck Neck: Present: supple, normal ROM - Respiratory Respiratory effort: normal Respiratory: bilateral: CTA - Cardiovascular Heart Sounds: Present: S1 & S2. Absent: rub, click - Extremities Extremities: pulses symmetrical, No edema Peripheral Pulses: within normal limits - Abdominal General gastrointestinal: Present: soft, non-tender, non-distended, normal bowel sounds Male genitourinary: Present: normal - Integumentary Integumentary: Present: clear, warm, dry - Musculoskeletal Musculoskeletal: gait normal, strength equal bilaterally - Psychiatric Psychiatric: appropriate mood/affect, intact judgment & insight - Neurologic Neurologic: CNII-XII intact, moves all extremities Plan Additional Instructions: Continue current medications. Use life vest as instructed. Follow up with Dr. Lukasz Mao on 08/03/2020 @ 3:30PM. Follow up with: PRIMARY MD BRIDGER [Primary Care Provider] - 7 Days KRISTEN MAO MD [Staff Physician] - 7 Days Prescriptions: Spironolactone [Aldactone] 25 mg PO QDAY #60 tablet Bumetanide [Bumex 1 mg tab] 1 mg PO 0600,1800 #60 tablet Losartan [Cozaar] 25 mg PO QDAY #30 tablet Apixaban [Eliquis] 5 mg PO Q12HR #60 tablet Digoxin [Lanoxin] 0.125 mg PO DAILY@1700 #30 tablet Metoprolol [Lopressor TAB] 25 mg PO BID #60 tablet
[2020-07-24 12:19] VITALS: BP 112/73
[2020-07-24] MEDS: LOSARTAN 25 MG TAB PO SCH (12:19)
[2020-07-24] MEDS ORDERED: FLU VACC QUAD 2020-2021 (6 months +)/PF 60 0.5 ML SYRINGE IM ONE (12:25)
== END 2020-07-24 13:52 | disposition home or self-care (01) | DRG 286 ==
LOC: ED 14:54 → 4A 17:49
PROVIDERS: ADMIT Internal Medicine; ATTEND Internal Medicine
PROC: 4A023N7 Measurement of Cardiac Sampling and Pressure, Left Heart, Percutaneous Approach (ICD-10-PCS; principal; 2020-07-20)
PROC: B2111ZZ Fluoroscopy of Multiple Coronary Arteries using Low Osmolar Contrast (ICD-10-PCS; 2020-07-20)
PROC: B2151ZZ Fluoroscopy of Left Heart using Low Osmolar Contrast (ICD-10-PCS; 2020-07-20)
DX: I11.0 Hypertensive heart disease with heart failure (principal); J96.01 Acute respiratory failure with hypoxia; E66.2 Morbid (severe) obesity with alveolar hypoventilation; I48.92 Unspecified atrial flutter; I50.23 Acute on chronic systolic (congestive) heart failure; I42.8 Other cardiomyopathies; E11.9 Type 2 diabetes mellitus without complications; I48.91 Unspecified atrial fibrillation; I27.20 Pulmonary hypertension, unspecified; E78.2 Mixed hyperlipidemia; E88.81 Metabolic syndrome and other insulin resistance; Z82.49 Family history of ischemic heart disease and other diseases of the circulatory system; Z85.46 Personal history of malignant neoplasm of prostate; Z83.3 Family history of diabetes mellitus; Z91.14 Patient's other noncompliance with medication regimen; Z68.32 Body mass index [BMI] 32.0-32.9, adult
CPT/HCPCS: 36415; 71045; 80048; 80061; 82550; 82553; 82962; 83735; 83880; 84439; 84443; 84484; 85025; 85610; 90686; 93005; 93306; 93458; 96374; G0378; C1894; J1160; J1644; J1940; J2250; J3010; J3475; J3480; J7040; Q9967

== ENCOUNTER 2020-09-09 01:21 | Inpatient (IN) | payer OTHER ==
[2020-09-09] MEDS ORDERED: BUMETANIDE 1 MG/4 ML INJ IV ONE ×2 (02:27→11:30)
[2020-09-09] MEDS ORDERED: ASPIRIN 325 MG TAB PO ONE (02:28)
--- NOTE | 2020-09-09 02:51 | XRay Report ---
CHEST 1 VIEW INDICATION: dyspnea, swollen legs. COMPARISON: 07/18/2020 FINDINGS: Support devices: None. Heart: Enlarged. Lungs/Pleura: There are small pleural effusions. There is mild interstitial edema. IMPRESSION: 1. Mild edema and small effusions, correlate clinically for congestive failure. Signer Name: Len Claudio MD Signed: 09/09/2020 2:46 AM Workstation Name: [id number]
[2020-09-09 03:03] LABS: Basophils % (Auto) 0.2 % (0.0-1.8); Eosinophils % (Auto) 0.3 % (0.0-4.3); Hematocrit 33.9 % (35.5-45.6); Lymphocytes % (Auto) 12.7 % (13.4-35.0); Mean Corpuscular HGB Conc 32 % (32-34); Mean Corpuscular Volume 82 fl (84-94); Monocytes # (Auto) 0.7 K/mm3 (0.0-0.8); Monocytes % (Auto) 8.4 % (0.0-7.3); Platelet Count 183 K/mm3 (140-440); Red Blood Count 4.14 M/mm3 (3.65-5.03)
[2020-09-09 03:05] LABS: Red Cell Distribution Width 20.3 % (13.2-15.2)
[2020-09-09 03:23] LABS: Albumin 3.3 g/dL (3.9-5); Calcium 8.9 mg/dL (8.4-10.2)
[2020-09-09] MEDS ORDERED: FUROSEMIDE 40 MG/4 ML INJ IV ONE (03:29)
--- NOTE | 2020-09-09 03:34 | Emergency Department Report ---
ED Shortness of Breath HPI - General Chief Complaint: Dyspnea/Respdistress Stated Complaint: SOB/SWELLING LEG AND ABDOMINAL PAIN Time Seen by Provider: 09/09/20 02:56 Source: patient Mode of arrival: Ambulatory Limitations: No Limitations - History of Present Illness Initial Comments: 60-year-old male, history of A. fib, CHF, presents to ED with shortness of breath and swelling in bilateral legs, stomach, and groin. Patient states "I have too much fluid on me." Patient reports increase in swelling and dyspnea on exertion over the past week. He also reports orthopnea as well. Patient denies any fever, cough, chest pain. Patient states he is compliant with his Lasix. Complaint: shortness of breath -: week(s) (1) Severity: moderate Consistency: intermittent Improves With: rest Worsens With: lying flat, exertion Known History Of: congestive heart failure Treatments Prior to Arrival: none - Related Data Home Oxygen Therapy: No Home Medications Medication Instructions Recorded Confirmed Last Taken AtorvaSTATin [Lipitor] 40 mg PO HS 07/19/20 07/19/20 Unknown Furosemide [Lasix TAB] 40 mg PO QDAY 07/19/20 07/19/20 Unknown Previous Rx's Medication Instructions Recorded Last Taken Type Apixaban [Eliquis] 5 mg PO Q12HR #60 tablet 07/24/20 Unknown Rx Bumetanide [Bumex 1 mg tab] 1 mg PO 0600,1800 #60 tablet 07/24/20 Unknown Rx Digoxin [Lanoxin] 0.125 mg PO DAILY@1700 #30 tablet 07/24/20 Unknown Rx Losartan [Cozaar] 25 mg PO QDAY #30 tablet 07/24/20 Unknown Rx Metoprolol [Lopressor TAB] 25 mg PO BID #60 tablet 07/24/20 Unknown Rx Spironolactone [Aldactone] 25 mg PO QDAY #60 tablet 07/24/20 Unknown Rx Allergies Allergy/AdvReac Type Severity Reaction Status Date / Time metformin Allergy Unknown Verified 07/18/20 15:51 ED Review of Systems ROS: Stated complaint: SOB/SWELLING LEG AND ABDOMINAL PAIN Other details as noted in HPI Comment: All other systems reviewed and negative Constitutional: denies: chills, fever Respiratory: orthopnea, SOB with exertion. denies: cough Cardiovascular: denies: chest pain Musculoskeletal: other (Patient reports lower extremity swelling) ED Past Medical Hx - Past Medical History Previous Medical History?: Yes Hx Hypertension: Yes Hx Congestive Heart Failure: Yes Additional medical history: elevated cholesterol - Surgical History Past Surgical History?: Yes Additional Surgical History: prostate removed 2016 - Social History Smoking Status: Never Smoker Substance Use Type: None - Medications Home Medications: Home Medications Medication Instructions Recorded Confirmed Last Taken Type AtorvaSTATin [Lipitor] 40 mg PO HS 07/19/20 07/19/20 Unknown History Furosemide [Lasix TAB] 40 mg PO QDAY 07/19/20 07/19/20 Unknown History Apixaban [Eliquis] 5 mg PO Q12HR #60 tablet 07/24/20 Unknown Rx Bumetanide [Bumex 1 mg tab] 1 mg PO 0600,1800 #60 tablet 07/24/20 Unknown Rx Digoxin [Lanoxin] 0.125 mg PO DAILY@1700 #30 tablet 07/24/20 Unknown Rx Losartan [Cozaar] 25 mg PO QDAY #30 tablet 07/24/20 Unknown Rx Metoprolol [Lopressor TAB] 25 mg PO BID #60 tablet 07/24/20 Unknown Rx Spironolactone [Aldactone] 25 mg PO QDAY #60 tablet 07/24/20 Unknown Rx ED Physical Exam - General Limitations: No Limitations General appearance: alert, in no apparent distress - Head Head exam: Present: atraumatic, normocephalic - Eye Eye exam: Present: normal appearance, EOMI - ENT ENT exam: Present: mucous membranes moist - Neck Neck exam: Present: normal inspection - Respiratory Respiratory exam: Present: rales, other (Tachypneic) - Cardiovascular Cardiovascular Exam: Present: regular rate, irregular rhythm - GI/Abdominal GI/Abdominal exam: Present: soft, distended. Absent: tenderness - Extremities Exam Extremities exam: Present: other (2+ pitting edema bilateral lower legs and feet) - Neurological Exam Neurological exam: Present: alert, oriented X3 - Psychiatric Psychiatric exam: Present: normal affect, normal mood - Skin Skin exam: Present: warm, dry, intact, normal color ED Course Vital Signs 09/09/20 09/09/20 09/09/20 02:07 02:59 03:00 Temperature 98.6 F Pulse Rate 92 H 103 H 110 H Respiratory 22 23 22 Rate Blood Pressure 106/66 105/75 O2 Sat by Pulse 98 98 98 Oximetry 09/09/20 09/09/20 09/09/20 03:16 03:30 03:46 Temperature Pulse Rate 111 H 114 H 102 H Respiratory 30 H 22 18 Rate Blood Pressure 105/75 97/73 97/73 O2 Sat by Pulse 97 99 96 Oximetry 09/09/20 09/09/20 09/09/20 04:00 04:16 04:30 Temperature Pulse Rate 109 H 114 H 110 H Respiratory 16 22 20 Rate Blood Pressure 107/80 97/73 108/74 O2 Sat by Pulse 98 99 98 Oximetry ED Medical Decision Making - Lab Data Result diagrams: 09/09/20 02:38 09/09/20 02:38 - EKG Data -: EKG Interpreted by Co EKG shows normal: QRS complexes, ST-T waves Rate: tachycardia (rate 102) - EKG Data Interpretation: no acute changes, other (Afib) - Radiology Data Radiology results: report reviewed, image reviewed - Medical Decision Making 60-year-old male presents to ED with CHF exacerbation. Patient has pitting edema to bilateral lower extremities, orthopnea, pulmonary edema on chest x-ray. Troponin is slightly elevated at 0.05, however patient denies any chest pain. EKG shows controlled, chronic A. fib, no ST changes. IV Bumex given here in ED. Patient will be admitted by hospitalist, Dr. Hess, for further management. - Differential Diagnosis CHF, pneumonia, ACS Critical Care Time: Yes Critical care time in (mins) excluding proc time.: 35 Critical care attestation.: If time is entered above; I have spent that time in minutes in the direct care of this critically ill patient, excluding procedure time. Critical Care Time: 35 min ED Disposition Clinical Impression: CHF exacerbation, Pulmonary edema Disposition: - OP ADMIT IP TO THIS HOSP Is pt being admited?: Yes Condition: Stable Time of Disposition: 03:34
[2020-09-09 03:51] LABS: Chol/HDL Ratio 1.86 %
[2020-09-09] MEDS ORDERED: DEXTROSE 50% IN WATER (25GM) 50 ML SYRINGE IV PRN (04:04)
[2020-09-09] MEDS ORDERED: ALBUTEROL 2.5 MG/3 ML NEBU IH PRN (04:04)
[2020-09-09] MEDS ORDERED: ONDANSETRON 4 MG/2 ML INJ IV PRN (04:04)
[2020-09-09] MEDS ORDERED: ACETAMINOPHEN 325 MG TAB PO PRN (04:04)
[2020-09-09] MEDS ORDERED: NITROGLYCERIN 0.4 MG TAB SUBL SL PRN (04:09)
--- NOTE | 2020-09-09 04:34 | History and Physical Report ---
History of Present Illness Date of examination: 09/09/20 Date of admission: 09/09/20 04:25 Chief complaint: SOB, BLE edema History of present illness: 60-year-old male with history of heart failure on life vest (EF 10 to 15%), DM 2, HTN, and A. fib who presents [facility] ED with complaints of bilateral lower extremity edema, and shortness of breath. Patient complains of worsening bilateral lower extremity pitting edema extending to scrotum and abdomen x1 week. He states that "the excessive fluid buildup" is so bad that he is on able to lay flat or walk without becoming short of breath. Of note patient was given a LifeVest on 07/24/2020. At the time of my examination patient does not have on LifeVest nor is it in his physical possession. According to patient he forgot it at home because he went out of town and did not carry the vest with him. He states that he will call his brother and ask him to bring it to him. Patient will need to be reeducated and encourage to be compliant with wearing LifeVest. Endorses: Orthopnea, PND, dyspnea on exertion, dyspnea at rest, impaired mobility r/t ble edema Denies: Fever, headache, sore throat, abdominal pain, diarrhea, constipation, cough, hemoptysis, chest pain, palpitation, or recent sick exposure Past History Past Medical History: atrial fib (/ Flutter), diabetes, heart failure (given lifevest on 07/24/20), hypertension, hyperlipidemia Past Surgical History: Other (Prostatectomy, s/p [facility]) Social history: single, Lives alone, full code. denies: smoking, alcohol abuse, IV drug use Family history: hypertension Medications and Allergies Allergies Allergy/AdvReac Type Severity Reaction Status Date / Time metformin Allergy Unknown Verified 07/18/20 15:51 Home Medications Medication Instructions Recorded Confirmed Last Taken Type AtorvaSTATin [Lipitor] 40 mg PO HS 07/19/20 07/19/20 Unknown History Furosemide [Lasix TAB] 40 mg PO QDAY 07/19/20 07/19/20 Unknown History Apixaban [Eliquis] 5 mg PO Q12HR #60 tablet 07/24/20 Unknown Rx Bumetanide [Bumex 1 mg tab] 1 mg PO 0600,1800 #60 tablet 07/24/20 Unknown Rx Digoxin [Lanoxin] 0.125 mg PO DAILY@1700 #30 tablet 07/24/20 Unknown Rx Losartan [Cozaar] 25 mg PO QDAY #30 tablet 07/24/20 Unknown Rx Metoprolol [Lopressor TAB] 25 mg PO BID #60 tablet 07/24/20 Unknown Rx Spironolactone [Aldactone] 25 mg PO QDAY #60 tablet 07/24/20 Unknown Rx Active Meds: Active Medications Acetaminophen (Acetaminophen 325 Mg Tab) 650 mg PO Q4H PRN PRN Reason: Pain MILD(1-3)/Fever >100.5/BOWSER Albuterol (Albuterol 2.5 Mg/3 Ml Nebu) 2.5 mg IH Q3HRT PRN PRN Reason: Shortness Of Breath Apixaban (Apixaban 5 Mg Tab) 5 mg PO Q12HR PANFILO Atorvastatin Calcium (Atorvastatin 40 Mg Tab) 40 mg PO HS PANFILO Dextrose (Dextrose 50% In Water (25gm) 50 Ml Syringe) 50 ml IV Q30MIN PRN; Protocol PRN Reason: Hypoglycemia Digoxin (Digoxin 0.125 Mg Tab) 0.125 mg PO DAILY@1700 [facility] Docusate Sodium (Docusate Sodium 100 Mg Cap) 100 mg PO BID PANFILO Furosemide (Furosemide 40 Mg/4 Ml Inj) 40 mg IV BID@0600,1800 [facility] Insulin Human Lispro (Insulin Lispro 100 Unit/Ml) 0 unit SUB-Q ACHS PANFILO; Protocol Losartan Potassium (Losartan 25 Mg Tab) 25 mg PO QDAY PANFILO Metoprolol Tartrate (Metoprolol Tartrate 25 Mg Tab) 25 mg PO BID PANFILO Nitroglycerin (Nitroglycerin 0.4 Mg Tab Subl) 0.4 mg SL .Q5MIN PRN PRN Reason: Chest Pain Ondansetron HCl (Ondansetron 4 Mg/2 Ml Inj) 4 mg IV Q8H PRN PRN Reason: Nausea And Vomiting Sodium Chloride (Sodium Chloride 0.9% 10 Ml Flush Syringe) 10 ml IV BID PANFILO Sodium Chloride (Sodium Chloride 0.9% 10 Ml Flush Syringe) 10 ml IV PRN PRN PRN Reason: LINE FLUSH Review of Systems All systems: negative Exam - Physical Exam Narrative exam: Physical exam General appearance: Present: No acute distress, alert and oriented 3, adult male - EENT Eyes: Present: PERRL, EOM intact ENT: hearing intact, normal dentition - Neck Neck: Present: supple, normal ROM - Respiratory Respiratory effort: Non-labored Respiratory: Bibasilar crackles - Cardiovascular Heart rate: 102 (bpm) Rhythm: Atrial fibrillation Heart Sounds: Present: S1 & S2. Absent: rub, click - Extremities Extremities: no ischemia, pulses intact, bilateral lower extremity 3+ pitting edema extending up to abdomen - Peripheral Assessment Peripheral Pulses: within normal limits - Abdominal General gastrointestinal: non-tender, normal bowel sounds - Integumentary Integumentary: Present: warm, dry - Musculoskeletal Musculoskeletal: Able to move all extremities, generalized weakness -Neurological Neurological: CN II-XII intact - Psychiatric Psychiatric: cooperative - Constitutional Vitals: Temp Pulse Resp BP Pulse Ox 98.6 F 114 H 22 97/73 99 09/09/20 02:07 09/09/20 04:16 09/09/20 04:16 09/09/20 04:16 09/09/20 04:16 HEART Score - HEART Score Troponin: Troponin T 0.055 ng/mL (0.00-0.029) H 09/09/20 02:38 Results - Labs CBC & Chem 7: 09/09/20 02:38 09/09/20 02:38 Labs: Laboratory Last Values WBC 7.8 K/mm3 (4.5-11.0) 09/09/20 02:38 RBC 4.14 M/mm3 (3.65-5.03) 09/09/20 02:38 Hgb 11.0 gm/dl (11.8-15.2) L 09/09/20 02:38 Hct 33.9 % (35.5-45.6) L 09/09/20 02:38 MCV 82 fl (84-94) L 09/09/20 02:38 MCH 27 pg (28-32) L 09/09/20 02:38 MCHC 32 % (32-34) 09/09/20 02:38 RDW 20.3 % (13.2-15.2) H 09/09/20 02:38 Plt Count 183 K/mm3 (140-440) 09/09/20 02:38 Lymph % (Auto) 12.7 % (13.4-35.0) L 09/09/20 02:38 [place] % (Auto) 8.4 % (0.0-7.3) H 09/09/20 02:38 Eos % (Auto) 0.3 % (0.0-4.3) 09/09/20 02:38 Baso % (Auto) 0.2 % (0.0-1.8) 09/09/20 02:38 Lymph # (Auto) 1.0 K/mm3 (1.2-5.4) L 09/09/20 02:38 [place] # (Auto) 0.7 K/mm3 (0.0-0.8) 09/09/20 02:38 Eos # (Auto) 0.0 K/mm3 (0.0-0.4) 09/09/20 02:38 Baso # (Auto) 0.0 K/mm3 (0.0-0.1) 09/09/20 02:38 Seg Neutrophils % 78.4 % (40.0-70.0) H 09/09/20 02:38 Seg Neutrophils # 6.1 K/mm3 (1.8-7.7) 09/09/20 02:38 Sodium 132 mmol/L (137-145) L 09/09/20 02:38 Potassium 3.9 mmol/L (3.6-5.0) 09/09/20 02:38 Chloride 92.2 mmol/L (98-107) L 09/09/20 02:38 Carbon Dioxide 34 mmol/L (22-30) H 09/09/20 02:38 Anion Gap 10 mmol/L 09/09/20 02:38 BUN 28 mg/dL (9-20) H 09/09/20 02:38 Creatinine 1.5 mg/dL (0.8-1.3) H 09/09/20 02:38 Estimated GFR 58 ml/min 09/09/20 02:38 BUN/Creatinine Ratio 19 % 09/09/20 02:38 Glucose 138 mg/dL (75-100) H 09/09/20 02:38 Calcium 8.9 mg/dL (8.4-10.2) 09/09/20 02:38 Total Bilirubin 0.80 mg/dL (0.1-1.2) 09/09/20 02:38 AST 28 units/L (5-40) 09/09/20 02:38 ALT 42 units/L (7-56) 09/09/20 02:38 Alkaline Phosphatase 71 units/L (35-129) 09/09/20 02:38 Troponin T 0.055 ng/mL (0.00-0.029) H 09/09/20 02:38 NT-Pro-B Natriuret Pep 5598 pg/mL (0-900) H 09/09/20 02:38 Total Protein 6.1 g/dL (6.3-8.2) L 09/09/20 02:38 Albumin 3.3 g/dL (3.9-5) L 09/09/20 02:38 Albumin/Globulin Ratio 1.2 % 09/09/20 02:38 Triglycerides 37 mg/dL (2-149) 09/09/20 02:38 Cholesterol 97 mg/dL (50-199) 09/09/20 02:38 LDL Cholesterol Direct 44 mg/dL (50-130) L 09/09/20 02:38 HDL Cholesterol 52 mg/dL (40-59) 09/09/20 02:38 Cholesterol/HDL Ratio 1.86 % 09/09/20 02:38 - Imaging and Cardiology Chest x-ray: report reviewed (Impression: 1. Mild edema and small effusions, correlate clinically for congestive failure. ), image reviewed Assessment and Plan Assessment and plan: Acute Exacerbation CHF -EF 10-15% seen on Echo (07/18/20) -BNP elevated at 5598 -Troponin negative x1, will continue to trend -CXR shows mild edema and small effusions suggestive for CHF exacerbation -Continue IV Lasix -Cardiology ([facility]) consulted - LifeVest given on 07/24/20, patient reports leaving the LifeVest at home and will ask his brother to bring to [facility] Dyspnea -Likely due to fluid overload -Albuterol prn -Supplemental O2 prn Elevated troponin -X1 at 0.055 -?? leak -EKG unrevealing for acute ischemic abnormalities -Patient denies chest pain -We will continue to trend -Cardiology consulted -We will defer additional cardiac work-up per cardiology recommendations Hyponatremia -Most likely pseudo-, due to fluid overload -Monitor -If no improvement may consider nephrology consult History A. fib -On anticoagulation and rate control with BB -Continuous telemetry monitoring HTN -Monitor BP -Resume home hypertensive meds DM -POC BG monitoring -SSI coverage prn HLD -Continue statin Anemia -Hemoglobin on admission 11.0 -No S/S of active bleeding -Continue to monitor hemoglobin -Transfuse as needed for Hgb < 7 Advance Directives: No VTE prophylaxis?: Chemical, Mechanical Plan of care discussed with patient/family: Yes
[2020-09-09] MEDS: INSULIN LISPRO 100 UNIT/ML SUB-Q SCH ×3 (08:57→17:13)
[2020-09-09] MEDS: METOPROLOL TARTRATE 25 MG TAB PO SCH ×2 (09:26→21:20)
[2020-09-09] MEDS: DOCUSATE SODIUM 100 MG CAP PO SCH ×2 (09:26→21:21)
[2020-09-09] MEDS: APIXABAN 5 MG TAB PO SCH ×2 (09:27→21:40)
[2020-09-09] MEDS: LOSARTAN 25 MG TAB PO SCH (09:28)
--- NOTE | 2020-09-09 09:51 | Event Note ---
Date: 09/09/20 60-year-old male with a medical history of systolic heart failure with LifeVest admitted with dyspnea on exertion, bilateral leg swelling and orthopnea. He mentions that he has been using his diuretics with no effects. He also complains of bloated abdomen. Here in the ER patient found to have acute on chronic systolic heart failure and placed on IV diuretics Cardiology has been consulted Rest of management as outlined in H&P Hospital service will document a full progress note tomorrow
--- NOTE | 2020-09-09 09:54 | Consultation ---
History of Present Illness Consult date: 09/09/20 Requesting physician: MARIANA BERMEO Consult reason: congestive heart failure History of present illness: 60-year-old male with history of chronic HFrEF EF 10 to 15%, DM 2, HTN, and persistent A. fib who presents [facility] ED with complaints of bilateral lower extremity edema, and shortness of breath. Patient complains of worsening bilateral lower extremity pitting edema extending to scrotum and abdomen x1 week. He states that "the excessive fluid buildup" is so bad that he is on able to lay flat or walk without becoming short of breath. Of note patient was given a LifeVest on 07/24/2020. Patient complains of paroxysmal nocturnal dyspnea, orthopnea, dyspnea on exertion, and hematuria. He denies any syncope, chest pain, fever, abdominal pain, diarrhea, or heart palpitations. Chest x-ray: Pulmonary vascular congestion with small pleural effusions EKG: Atrial fibrillation with a controlled ventricular rate. Past History Past Medical History: atrial fib (/ Flutter), diabetes, heart failure (given lifevest on 07/24/20), hypertension, hyperlipidemia Past Surgical History: Other (Prostatectomy, s/p [facility]) Social history: single, Lives alone, full code. denies: smoking, alcohol abuse, IV drug use Family history: hypertension Medications and Allergies Allergies Allergy/AdvReac Type Severity Reaction Status Date / Time metformin Allergy Unknown Verified 07/18/20 15:51 Home Medications Medication Instructions Recorded Confirmed Last Taken Type AtorvaSTATin [Lipitor] 40 mg PO HS 07/19/20 09/09/20 Unknown History Furosemide [Lasix TAB] 40 mg PO QDAY 07/19/20 09/09/20 Unknown History Apixaban [Eliquis] 5 mg PO Q12HR #60 tablet 07/24/20 09/09/20 Unknown Rx Bumetanide [Bumex 1 mg tab] 1 mg PO 0600,1800 #60 tablet 07/24/20 09/09/20 Unknown Rx Digoxin [Lanoxin] 0.125 mg PO DAILY@1700 #30 tablet 07/24/20 09/09/20 Unknown Rx Losartan [Cozaar] 25 mg PO QDAY #30 tablet 07/24/20 09/09/20 Unknown Rx Metoprolol [Lopressor TAB] 25 mg PO BID #60 tablet 07/24/20 09/09/20 Unknown Rx Spironolactone [Aldactone] 25 mg PO QDAY #60 tablet 07/24/20 09/09/20 Unknown Rx Active Meds: Active Medications Acetaminophen (Acetaminophen 325 Mg Tab) 650 mg PO Q4H PRN PRN Reason: Pain MILD(1-3)/Fever >100.5/BOWSER Albuterol (Albuterol 2.5 Mg/3 Ml Nebu) 2.5 mg IH Q3HRT PRN PRN Reason: Shortness Of Breath Apixaban (Apixaban 5 Mg Tab) 5 mg PO Q12HR [facility] Last Admin: 09/09/20 09:27 Dose: Not Given Documented by: Atorvastatin Calcium (Atorvastatin 40 Mg Tab) 40 mg PO HS [facility] Bumetanide (Bumetanide 1 Mg/4 Ml Inj) 1 mg IV BID@0600,1800 [facility] Dextrose (Dextrose 50% In Water (25gm) 50 Ml Syringe) 50 ml IV Q30MIN PRN; Protocol PRN Reason: Hypoglycemia Digoxin (Digoxin 0.125 Mg Tab) 0.125 mg PO DAILY@1700 [facility] Docusate Sodium (Docusate Sodium 100 Mg Cap) 100 mg PO BID [facility] Last Admin: 09/09/20 09:26 Dose: 100 mg Documented by: Insulin Human Lispro (Insulin Lispro 100 Unit/Ml) 0 unit SUB-Q ACHS [facility]; Protocol Last Admin: 09/09/20 08:57 Dose: Not Given Documented by: Losartan Potassium (Losartan 25 Mg Tab) 25 mg PO QDAY [facility] Last Admin: 09/09/20 09:28 Dose: Not Given Documented by: Metoprolol Tartrate (Metoprolol Tartrate 25 Mg Tab) 25 mg PO BID [facility] Last Admin: 09/09/20 09:26 Dose: 25 mg Documented by: Nitroglycerin (Nitroglycerin 0.4 Mg Tab Subl) 0.4 mg SL .Q5MIN PRN PRN Reason: Chest Pain Ondansetron HCl (Ondansetron 4 Mg/2 Ml Inj) 4 mg IV Q8H PRN PRN Reason: Nausea And Vomiting Sodium Chloride (Sodium Chloride 0.9% 10 Ml Flush Syringe) 10 ml IV BID [facility] Last Admin: 09/09/20 09:29 Dose: 10 ml Documented by: Sodium Chloride (Sodium Chloride 0.9% 10 Ml Flush Syringe) 10 ml IV PRN PRN PRN Reason: LINE FLUSH Review of Systems Constitutional: weight gain, weakness Cardiovascular: orthopnea, edema, shortness of breath, dyspnea on exertion, paroxysmal nocturnal dyspnea, leg edema, no syncope Respiratory: no cough, no hemoptysis Gastrointestinal: no nausea, no vomiting, no hematochezia Genitourinary Male: hematuria Rectal: no incontinence, no bleeding Integumentary: deferred Neurological: no paralysis, no weakness Psychiatric: no anxiety, no memory loss Physical Examination Vital Signs Temp Pulse Resp BP Pulse Ox 98.6 F 92 H 22 106/66 98 09/09/20 02:07 09/09/20 02:07 09/09/20 02:07 09/09/20 02:07 09/09/20 02:07 General appearance: mild distress HEENT: Positive: PERRL Neck: Positive: neck supple, trachea midline Cardiac: Positive: irregularly irregular, Tachycardia Lungs: Positive: Decreased Breath Sounds Neuro: Positive: Grossly Intact Abdomen: Positive: Active Bowel Sounds, Distended Male genitourinary: Positive: scrotal edema Skin: Positive: Cool Extremities: Present: +3 Edema, Cool Results 09/09/20 02:38 09/09/20 02:38 Cardiac Enzymes 09/09/20 Range/Units 02:38 AST 28 (5-40) units/L Lipids 09/09/20 Range/Units 02:38 Triglycerides 37 (2-149) mg/dL Cholesterol 97 (50-199) mg/dL HDL Cholesterol 52 (40-59) mg/dL Cholesterol/HDL Ratio 1.86 % CBC 09/09/20 Range/Units 02:38 WBC 7.8 (4.5-11.0) K/mm3 RBC 4.14 (3.65-5.03) M/mm3 Hgb 11.0 L (11.8-15.2) gm/dl Hct 33.9 L (35.5-45.6) % Plt Count 183 (140-440) K/mm3 Lymph # (Auto) 1.0 L (1.2-5.4) K/mm3 Lipscomb # (Auto) 0.7 (0.0-0.8) K/mm3 Eos # (Auto) 0.0 (0.0-0.4) K/mm3 Baso # (Auto) 0.0 (0.0-0.1) K/mm3 Comprehensive Metabolic Panel 09/09/20 Range/Units 02:38 Sodium 132 L (137-145) mmol/L Potassium 3.9 (3.6-5.0) mmol/L Chloride 92.2 L (98-107) mmol/L Carbon Dioxide 34 H (22-30) mmol/L BUN 28 H (9-20) mg/dL Creatinine 1.5 H (0.8-1.3) mg/dL Glucose 138 H (75-100) mg/dL Calcium 8.9 (8.4-10.2) mg/dL AST 28 (5-40) units/L ALT 42 (7-56) units/L Alkaline Phosphatase 71 (35-129) units/L Total Protein 6.1 L (6.3-8.2) g/dL Albumin 3.3 L (3.9-5) g/dL EKG interpretations - Telemetry EKG Rhythm: Atrial Fibrillation Assessment and Plan 59 M Acute on chronic HFrEF 10-15% (Followed by Dr. Trever Chavarria [place]) Dilated CM/Lifevest in place Hypotension hematuria Hyponatremia CKD persistent atrial fibrillation hypertension hyperlipidemia diabetes Obesity/OHS History of Etoh (quit 2014) prostate CA s/p surgery in 2017 medical noncompliance Left heart cath 07/20/2020: No angiographic significant CAD, EF 15 to 20%, LVEDP 15 mmHg Echocardiogram 07/18/2020: Mild LVH, EF 10 to 15%, grade 1 diastolic dysfunction, RVSP 58 mmHg, moderate mitral regurgitation, mild aortic regurgitation strict I/O Bumex 1mg IV BID monitor Cr and K+ may require inotropes will monitor for now check digoxin level Continue losartan 25mg QDAY and metoprolol 25 BID as tolerated hold eliquis given hematuria
[2020-09-09] MEDS ORDERED: NON-FORMULARY EACH (Apixaban 5 MG Tablet) PO SCH (10:00)
[2020-09-09] MEDS ORDERED: HEPARIN 5,000 UNIT/1 ML VIAL SUB-Q SCH (10:00)
[2020-09-09] MEDS: BUMETANIDE 1 MG/4 ML INJ IV SCH ×2 (10:19→18:46)
[2020-09-09 14:06] LABS: BUN/Creatinine Ratio 21; Blood Urea Nitrogen 30 mg/dL (9-20); Calcium 8.4 mg/dL (8.4-10.2); Hemolysis Index 0
[2020-09-09] MEDS: DIGOXIN 0.125 MG TAB PO SCH (17:14)
[2020-09-09] MEDS ORDERED: FUROSEMIDE 40 MG/4 ML INJ IV SCH (18:00)
[2020-09-10] MEDS: INSULIN LISPRO 100 UNIT/ML SUB-Q SCH ×5 (00:31→21:55)
[2020-09-10 05:36] LABS: Basophils % (Auto) 0.2 % (0.0-1.8); Eosinophils % (Auto) 0.1 % (0.0-4.3); Hematocrit 35.7 % (35.5-45.6); Hemoglobin 11.7 gm/dl (11.8-15.2); Lymphocytes # (Auto) 1.7 K/mm3 (1.2-5.4); Lymphocytes % (Auto) 17.3 % (13.4-35.0); Mean Corpuscular HGB Conc 33 % (32-34); Mean Corpuscular Volume 82 fl (84-94); Monocytes # (Auto) 0.7 K/mm3 (0.0-0.8); Monocytes % (Auto) 7.4 % (0.0-7.3); Platelet Count 183 K/mm3 (140-440); Red Blood Count 4.38 M/mm3 (3.65-5.03)
[2020-09-10 05:56] LABS: Red Cell Distribution Width 20.4 % (13.2-15.2)
[2020-09-10 06:07] LABS: BUN/Creatinine Ratio 28; Blood Urea Nitrogen 36 mg/dL (9-20); Calcium 8.8 mg/dL (8.4-10.2); Hemolysis Index 7
[2020-09-10] MEDS: BUMETANIDE 1 MG/4 ML INJ IV SCH ×2 (06:43→19:41)
[2020-09-10] MEDS: DOCUSATE SODIUM 100 MG CAP PO SCH ×2 (10:00→21:50)
--- NOTE | 2020-09-10 10:19 | Progress Note ---
Assessment and Plan Assessment and plan: Acute on chronic systolic CHF -EF 10-15% seen on Echo (07/18/20) -Bumex 1mg BID -Replete electrolytes PRN -Cardiology on board -Has a life vest Elevated troponin -EKG unrevealing for acute ischemic abnormalities -Patient denies chest pain -Cardiology on board History of A. fib -Continue rate control with BB -Did not tolerate DOAC due to GI bleed and hematuria -Continuous telemetry monitoring HTN -Monitor BP -Resume home hypertensive meds DM -SSI coverage prn -Lantus HLD -Continue statin Anemia -Hemoglobin on admission 11.0 -No S/S of active bleeding -Continue to monitor hemoglobin -Transfuse as needed for Hgb < 7 #DVT ppx - SCDs, has a history of GI bleed and hematuria History Interval history: 60-year-old male with history of heart failure on life vest (EF 10 to 15%), DM 2, HTN, and A. fib who presents [facility] ED with complaints of bilateral lower extremity edema, and shortness of breath. Patient complains of worsening bilateral lower extremity pitting edema extending to scrotum and abdomen x1 week. He states that "the excessive fluid buildup" is so bad that he is on able to lay flat or walk without becoming short of breath. Of note patient was given a LifeVest on 07/24/2020. At the time of my examination patient does not have on LifeVest nor is it in his physical possession. According to patient he forgot it at home because he went out of town and did not carry the vest with him. He states that he will call his brother and ask him to bring it to him. Patient will need to be reeducated and encourage to be compliant with wearing LifeVest. Endorses: Orthopnea, PND, dyspnea on exertion, dyspnea at rest, impaired mobility r/t ble edema Here in the ED, he was noted to have elevated proBNP and chest xray findings of bilateral infiltrates suggestive of CHF with trace pleural effusions. Troponin was elevated. He was started on IV diuretics and admitted. Cardiology has been consulted. Hospital course 09/10. Still has fluid overload. States he is not making much urine. Remains on bumex BID. Cardiology to see. Hospitalist Physical - Physical exam Narrative exam: VITAL SIGNS: Reviewed. GENERAL: Awake HEAD: No signs of head trauma. EYES: Pupils are equal. Extraocular motions intact. MOUTH: Oropharynx is normal. NECK: No adenopathy CHEST: Some rales with diminished sounds at the bases CARDIAC: normal S1 and S2, without murmurs, gallops, or rubs. ABDOMEN: Soft, non tender, mild distension noted MUSCULOSKELETAL: Edema up to thighs NEUROLOGIC EXAM: Alert and oriented x3. No focal neurologic deficits SKIN: No obvious lesions - Constitutional Vitals: Temp Pulse Resp BP Pulse Ox 98.0 F 94 H 19 98/74 100 09/10/20 06:56 09/10/20 06:56 09/10/20 06:56 09/10/20 06:56 09/10/20 06:56 HEART Score - HEART Score Troponin: Troponin T 0.069 ng/mL (0.00-0.029) H D 09/09/20 13:25 Results - Labs CBC & Chem 7: 09/10/20 04:56 09/10/20 04:56 Labs: Laboratory Last Values WBC 9.7 K/mm3 (4.5-11.0) 09/10/20 04:56 RBC 4.38 M/mm3 (3.65-5.03) 09/10/20 04:56 Hgb 11.7 gm/dl (11.8-15.2) L 09/10/20 04:56 Hct 35.7 % (35.5-45.6) 09/10/20 04:56 MCV 82 fl (84-94) L 09/10/20 04:56 MCH 27 pg (28-32) L 09/10/20 04:56 MCHC 33 % (32-34) 09/10/20 04:56 RDW 20.4 % (13.2-15.2) H 09/10/20 04:56 Plt Count 183 K/mm3 (140-440) 09/10/20 04:56 Lymph % (Auto) 17.3 % (13.4-35.0) 09/10/20 04:56 Cherry % (Auto) 7.4 % (0.0-7.3) H 09/10/20 04:56 Eos % (Auto) 0.1 % (0.0-4.3) 09/10/20 04:56 Baso % (Auto) 0.2 % (0.0-1.8) 09/10/20 04:56 Lymph # (Auto) 1.7 K/mm3 (1.2-5.4) 09/10/20 04:56 Cherry # (Auto) 0.7 K/mm3 (0.0-0.8) 09/10/20 04:56 Eos # (Auto) 0.0 K/mm3 (0.0-0.4) 09/10/20 04:56 Baso # (Auto) 0.0 K/mm3 (0.0-0.1) 09/10/20 04:56 Seg Neutrophils % 75.0 % (40.0-70.0) H 09/10/20 04:56 Seg Neutrophils # 7.2 K/mm3 (1.8-7.7) 09/10/20 04:56 Sodium 139 mmol/L (137-145) 09/10/20 04:56 Potassium 4.0 mmol/L (3.6-5.0) 09/10/20 04:56 Chloride 97.7 mmol/L (98-107) L 09/10/20 04:56 Carbon Dioxide 32 mmol/L (22-30) H 09/10/20 04:56 Anion Gap 13 mmol/L 09/10/20 04:56 BUN 36 mg/dL (9-20) H 09/10/20 04:56 Creatinine 1.3 mg/dL (0.8-1.3) 09/10/20 04:56 Estimated GFR > 60 ml/min 09/10/20 04:56 BUN/Creatinine Ratio 28 % 09/10/20 04:56 Glucose 141 mg/dL (75-100) H 09/10/20 04:56 POC Glucose 120 mg/dL (70-105) H 09/10/20 07:33 Calcium 8.8 mg/dL (8.4-10.2) 09/10/20 04:56 Magnesium 2.00 mg/dL (1.7-2.3) 09/10/20 04:56 Total Bilirubin 0.80 mg/dL (0.1-1.2) 09/09/20 02:38 AST 28 units/L (5-40) 09/09/20 02:38 ALT 42 units/L (7-56) 09/09/20 02:38 Alkaline Phosphatase 71 units/L (35-129) 09/09/20 02:38 Troponin T 0.069 ng/mL (0.00-0.029) H D 09/09/20 13:25 NT-Pro-B Natriuret Pep 5598 pg/mL (0-900) H 09/09/20 02:38 Total Protein 6.1 g/dL (6.3-8.2) L 09/09/20 02:38 Albumin 3.3 g/dL (3.9-5) L 09/09/20 02:38 Albumin/Globulin Ratio 1.2 % 09/09/20 02:38 Triglycerides 37 mg/dL (2-149) 09/09/20 02:38 Cholesterol 97 mg/dL (50-199) 09/09/20 02:38 LDL Cholesterol Direct 44 mg/dL (50-130) L 09/09/20 02:38 HDL Cholesterol 52 mg/dL (40-59) 09/09/20 02:38 Cholesterol/HDL Ratio 1.86 % 09/09/20 02:38 Nasal Screen MRSA (PCR) Negative (Negative) 09/09/20 Unknown Digoxin 0.3 ng/mL (0.9-2.0) L 09/09/20 13:25 Dale/IV: Voiding Method Toilet Active Medications - Current Medications Current Medications: Generic Name Dose Route Start Last Admin Trade Name Freq PRN Reason Stop Dose Admin Acetaminophen 650 mg 09/09/20 04:04 Acetaminophen 325 Mg Tab PO Q4H PRN Pain MILD(1-3)/Fever >100.5/BOWSER Albuterol 2.5 mg 09/09/20 04:04 Albuterol 2.5 Mg/3 Ml Nebu IH Q3HRT PRN Shortness Of Breath Apixaban 5 mg 09/09/20 10:00 09/09/20 21:40 Apixaban 5 Mg Tab PO Not Given Q12HR [facility] Atorvastatin Calcium 40 mg 09/09/20 22:00 09/09/20 21:22 Atorvastatin 40 Mg Tab PO 40 mg HS [facility] Administration Bumetanide 1 mg 09/09/20 18:00 09/10/20 06:43 Bumetanide 1 Mg/4 Ml Inj IV 1 mg BID@0600,1800 [facility] Administration Dextrose 50 ml 09/09/20 04:04 Dextrose 50% In Water (25gm) 50 Ml Syringe IV Q30MIN PRN Hypoglycemia Protocol Digoxin 0.125 mg 09/09/20 17:00 09/09/20 17:14 Digoxin 0.125 Mg Tab PO 0.125 mg DAILY@1700 [facility] Administration Docusate Sodium 100 mg 09/09/20 10:00 09/09/20 21:21 Docusate Sodium 100 Mg Cap PO 100 mg BID [facility] Administration Insulin Human Lispro 0 unit 09/09/20 07:30 09/10/20 00:31 Insulin Lispro 100 Unit/Ml SUB-Q 2 unit ACHS [facility] Administration Protocol Losartan Potassium 25 mg 09/09/20 10:00 09/09/20 09:28 Losartan 25 Mg Tab PO Not Given QDAY [facility] Metoprolol Tartrate 25 mg 09/09/20 10:00 09/09/20 21:20 Metoprolol Tartrate 25 Mg Tab PO 25 mg BID [facility] Administration Nitroglycerin 0.4 mg 09/09/20 04:09 Nitroglycerin 0.4 Mg Tab Subl SL .Q5MIN PRN Chest Pain Ondansetron HCl 4 mg 09/09/20 04:04 Ondansetron 4 Mg/2 Ml Inj IV Q8H PRN Nausea And Vomiting Sodium Chloride 10 ml 09/09/20 10:00 09/09/20 21:53 Sodium Chloride 0.9% 10 Ml Flush Syringe IV 10 ml BID [facility] Administration Sodium Chloride 10 ml 09/09/20 04:04 Sodium Chloride 0.9% 10 Ml Flush Syringe IV PRN PRN LINE FLUSH
[2020-09-10] MEDS ORDERED: DIGOXIN 0.5 MG/2 ML INJ IV NR (12:29)
[2020-09-10] MEDS: METOPROLOL TARTRATE 25 MG TAB PO SCH ×2 (12:56→21:50)
[2020-09-10] MEDS: LOSARTAN 25 MG TAB PO SCH (12:57)
[2020-09-10] MEDS: APIXABAN 5 MG TAB PO SCH (12:58)
--- NOTE | 2020-09-10 15:46 | Progress Note ---
Assessment and Plan 60-year-old male with history of chronic HFrEF EF 10 to 15%, DM 2, HTN, and persistent A. fib who presents [facility] ED with complaints of bilateral lower extremity edema, and shortness of breath. Patient complains of worsening bilateral lower extremity pitting edema extending to scrotum and abdomen x1 week. He states that "the excessive fluid buildup" is so bad that he is on able to lay flat or walk without becoming short of breath. Of note patient was given a LifeVest on 07/24/2020. Patient complains of paroxysmal nocturnal dyspnea, o rthopnea, dyspnea on exertion, and hematuria. He denies any syncope, chest pain, fever, abdominal pain, diarrhea, or heart palpitations. Chest x-ray: Pulmonary vascular congestion with small pleural effusions Troponins are nonspecific. Continue to trend Lamar. Pt is in Atrial Fib unable to tolerate NOAC due to profuse Hematuria and hx of GI bleed. Pt has significant hx of prostate CA in 2017. Pt is recommended to wear life vest. Lifevest is present and in use. Will follow. This pt was seen in conjunction with Dr Narayan who agrees with this assessment and plan. Subjective Date of service: 09/10/20 Interval history: Pt resting comfortably in chair at bedside. Tele reviewed: AF 90s. No events. Objective Last Vital Signs Temp 98.3 F 09/10/20 10:25 Pulse 106 H 09/10/20 12:57 Resp 15 09/10/20 10:25 BP 114/82 09/10/20 10:25 Pulse Ox 100 09/10/20 10:25 - Physical Examination HEENT: Positive: PERRL Neck: Positive: neck supple, trachea midline Cardiac: Positive: irregularly irregular, S1/S2 Lungs: Positive: clear to auscultation, Normal Breath Sounds Neuro: Positive: Grossly Intact Abdomen: Positive: Active Bowel Sounds, Distended Skin: Positive: Cool Extremities: Present: upper extr. pulses, lower extr. pulses, +2 Edema, Cool - Labs and Meds CBC 09/10/20 Range/Units 04:56 WBC 9.7 (4.5-11.0) K/mm3 RBC 4.38 (3.65-5.03) M/mm3 Hgb 11.7 L (11.8-15.2) gm/dl Hct 35.7 (35.5-45.6) % Plt Count 183 (140-440) K/mm3 Lymph # (Auto) 1.7 (1.2-5.4) K/mm3 Garvin # (Auto) 0.7 (0.0-0.8) K/mm3 Eos # (Auto) 0.0 (0.0-0.4) K/mm3 Baso # (Auto) 0.0 (0.0-0.1) K/mm3 Comprehensive Metabolic Panel 09/10/20 Range/Units 04:56 Sodium 139 (137-145) mmol/L Potassium 4.0 (3.6-5.0) mmol/L Chloride 97.7 L (98-107) mmol/L Carbon Dioxide 32 H (22-30) mmol/L BUN 36 H (9-20) mg/dL Creatinine 1.3 (0.8-1.3) mg/dL Glucose 141 H (75-100) mg/dL Calcium 8.8 (8.4-10.2) mg/dL - Telemetry EKG Rhythm: Atrial Fibrillation
[2020-09-10] MEDS: DIGOXIN 0.125 MG TAB PO SCH (19:40)
[2020-09-11] MEDS: BUMETANIDE 1 MG/4 ML INJ IV SCH ×2 (05:29→17:52)
[2020-09-11 05:59] LABS: Alanine Aminotransferase 38 units/L (7-56); Albumin 3.3 g/dL (3.9-5); BUN/Creatinine Ratio 28; Blood Urea Nitrogen 39 mg/dL (9-20); Calcium 9.2 mg/dL (8.4-10.2); Hemolysis Index 5
[2020-09-11] MEDS: INSULIN LISPRO 100 UNIT/ML SUB-Q SCH ×4 (08:00→22:00)
--- NOTE | 2020-09-11 11:07 | Progress Note ---
Assessment and Plan Assessment and plan: 60-year-old male with history of heart failure on life vest (EF 10 to 15%), DM 2, HTN, and A. fib who presents [facility] ED with complaints of bilateral lower extremity edema, and shortness of breath. Patient complains of worsening bilateral lower extremity pitting edema extending to scrotum and abdomen x1 w [place]. He states that "the excessive fluid buildup" is so bad that he is on able to lay flat or walk without becoming short of breath. Of note patient was given a LifeVest on 07/24/2020. At the time of my examination patient does not have on LifeVest nor is it in his physical possession. According to patient he forgot it at home because he went out of town and did not carry the vest with him. He states that he will call his brother and ask him to bring it to him. Patient will need to be reeducated and encourage to be compliant with wearing LifeVest. Endorses: Orthopnea, PND, dyspnea on exertion, dyspnea at rest, impaired mobility r/t ble edema Here in the ED, he was noted to have elevated proBNP and chest xray findings of bilateral infiltrates suggestive of CHF with trace pleural effusions. Troponin was elevated. He was started on IV diuretics and admitted. Cardiology has been consulted. Hospital course 09/10. Still has fluid overload. States he is not making much urine. Remains on bumex BID. Cardiology to see. 09/11: Patient remains with volume overload. 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 Negative 240 mL documented this fluid balance. Plan discussed with the patient. LifeVest in place. Acute on chronic systolic CHF -EF 10-15% seen on Echo (07/18/20) -Bumex 1mg BID -Replete electrolytes PRN -Cardiology on board -Has a life vest Elevated troponin -EKG unrevealing for acute ischemic abnormalities -Patient denies chest pain -Cardiology on board A. fib -Continue rate control with BB -Did not tolerate DOAC due to GI bleed and hematuria -Continuous telemetry monitoring HTN -Monitor BP -Resume home hypertensive meds DM -SSI coverage prn -Lantus Acute kidney injury secondary to vasomotor nephropathy -We will continue to monitor creatinine is 1.4 HLD -Continue statin Anemia -Hemoglobin on admission 11.0 -No S/S of active bleeding -Continue to monitor hemoglobin -Transfuse as needed for Hgb < 7 #DVT ppx - SCDs, has a history of GI bleed and hematuria History Interval history: Patient seen and examined today admitted with congestive heart failure. Reports improvement in symptomology still with bilateral lower extremity swelling increase. Hospitalist Physical - Physical exam Narrative exam: VITAL SIGNS: Reviewed. GENERAL: The patient appears normally developed, Vital signs as documented. HEAD: No signs of head trauma. EYES: Pupils are equal. Extraocular motions intact. EARS: Hearing grossly intact. MOUTH: Oropharynx is normal. NECK: No adenopathy, no JVD. CHEST: Chest with diminished breath sounds bilaterally. No wheezes, rales, or rhonchi. Is wearing his LifeVest CARDIAC: Regular rate and rhythm. S1 and S2, without murmurs, gallops, or rubs. VASCULAR: +2 bilateral pitting edema. Peripheral pulses normal and equal in all extremities. ABDOMEN: Soft, non tender and non distended. No rebound or guarding, and no masses palpated. Bowel Sounds normal. MUSCULOSKELETAL: Good range of motion of all major joints. Extremities without clubbing, cyanosis. +2 bilateral pitting edema extending up to thighs. NEUROLOGIC EXAM: Alert and oriented x 3 No focal sensory or strength deficits. Speech normal. Follows commands. PSYCHIATRIC: Mood normal. SKIN: detail exam as documented in skin assessment - Constitutional Vitals: Temp Pulse Resp BP Pulse Ox 98.5 F 92 H 19 109/80 100 09/11/20 08:00 09/11/20 08:00 09/11/20 08:00 09/11/20 08:00 09/11/20 08:00 General appearance: Present: mild distress HEART Score - HEART Score Troponin: Troponin T 0.069 ng/mL (0.00-0.029) H D 09/09/20 13:25 Results - Labs CBC & Chem 7: 09/10/20 04:56 09/11/20 04:20 Labs: Laboratory Last Values WBC 9.7 K/mm3 (4.5-11.0) 09/10/20 04:56 RBC 4.38 M/mm3 (3.65-5.03) 09/10/20 04:56 Hgb 11.7 gm/dl (11.8-15.2) L 09/10/20 04:56 Hct 35.7 % (35.5-45.6) 09/10/20 04:56 MCV 82 fl (84-94) L 09/10/20 04:56 MCH 27 pg (28-32) L 09/10/20 04:56 MCHC 33 % (32-34) 09/10/20 04:56 RDW 20.4 % (13.2-15.2) H 09/10/20 04:56 Plt Count 183 K/mm3 (140-440) 09/10/20 04:56 Lymph % (Auto) 17.3 % (13.4-35.0) 09/10/20 04:56 Sharkey % (Auto) 7.4 % (0.0-7.3) H 09/10/20 04:56 Eos % (Auto) 0.1 % (0.0-4.3) 09/10/20 04:56 Baso % (Auto) 0.2 % (0.0-1.8) 09/10/20 04:56 Lymph # (Auto) 1.7 K/mm3 (1.2-5.4) 09/10/20 04:56 Sharkey # (Auto) 0.7 K/mm3 (0.0-0.8) 09/10/20 04:56 Eos # (Auto) 0.0 K/mm3 (0.0-0.4) 09/10/20 04:56 Baso # (Auto) 0.0 K/mm3 (0.0-0.1) 09/10/20 04:56 Seg Neutrophils % 75.0 % (40.0-70.0) H 09/10/20 04:56 Seg Neutrophils # 7.2 K/mm3 (1.8-7.7) 09/10/20 04:56 Sodium 140 mmol/L (137-145) 09/11/20 04:20 Potassium 4.2 mmol/L (3.6-5.0) 09/11/20 04:20 Chloride 98.2 mmol/L (98-107) 09/11/20 04:20 Carbon Dioxide 31 mmol/L (22-30) H 09/11/20 04:20 Anion Gap 15 mmol/L 09/11/20 04:20 BUN 39 mg/dL (9-20) H 09/11/20 04:20 Creatinine 1.4 mg/dL (0.8-1.3) H 09/11/20 04:20 Estimated GFR > 60 ml/min 09/11/20 04:20 BUN/Creatinine Ratio 28 % 09/11/20 04:20 Glucose 116 mg/dL (75-100) H 09/11/20 04:20 POC Glucose 195 mg/dL (70-105) H 09/10/20 21:32 Calcium 9.2 mg/dL (8.4-10.2) 09/11/20 04:20 Magnesium 1.90 mg/dL (1.7-2.3) 09/11/20 04:20 Total Bilirubin 1.10 mg/dL (0.1-1.2) 09/11/20 04:20 AST 29 units/L (5-40) 09/11/20 04:20 ALT 38 units/L (7-56) 09/11/20 04:20 Alkaline Phosphatase 88 units/L (35-129) 09/11/20 04:20 Troponin T 0.069 ng/mL (0.00-0.029) H D 09/09/20 13:25 NT-Pro-B Natriuret Pep 5598 pg/mL (0-900) H 09/09/20 02:38 Total Protein 6.1 g/dL (6.3-8.2) L 09/11/20 04:20 Albumin 3.3 g/dL (3.9-5) L 09/11/20 04:20 Albumin/Globulin Ratio 1.2 % 09/11/20 04:20 Triglycerides 37 mg/dL (2-149) 09/09/20 02:38 Cholesterol 97 mg/dL (50-199) 09/09/20 02:38 LDL Cholesterol Direct 44 mg/dL (50-130) L 09/09/20 02:38 HDL Cholesterol 52 mg/dL (40-59) 09/09/20 02:38 Cholesterol/HDL Ratio 1.86 % 09/09/20 02:38 Nasal Screen MRSA (PCR) Negative (Negative) 09/09/20 Unknown Digoxin 0.3 ng/mL (0.9-2.0) L 09/09/20 13:25 Dale/IV: Voiding Method Urinal Active Medications - Current Medications Current Medications: Generic Name Dose Route Start Last Admin Trade Name Freq PRN Reason Stop Dose Admin Acetaminophen 650 mg 09/09/20 04:04 Acetaminophen 325 Mg Tab PO Q4H PRN Pain MILD(1-3)/Fever >100.5/BOWSER Albuterol 2.5 mg 09/09/20 04:04 Albuterol 2.5 Mg/3 Ml Nebu IH Q3HRT PRN Shortness Of Breath Atorvastatin Calcium 40 mg 09/09/20 22:00 09/10/20 21:50 Atorvastatin 40 Mg Tab PO 40 mg HS PANFILO Administration Bumetanide 1 mg 09/09/20 18:00 09/11/20 05:29 Bumetanide 1 Mg/4 Ml Inj IV 1 mg BID@0600,1800 PANFILO Administration Dextrose 50 ml 09/09/20 04:04 Dextrose 50% In Water (25gm) 50 Ml Syringe IV Q30MIN PRN Hypoglycemia Protocol Digoxin 0.125 mg 09/09/20 17:00 09/10/20 19:40 Digoxin 0.125 Mg Tab PO 0.125 mg DAILY@1700 PANFILO Administration Docusate Sodium 100 mg 09/09/20 10:00 09/10/20 21:50 Docusate Sodium 100 Mg Cap PO 100 mg BID PANFILO Administration Insulin Human Lispro 0 unit 09/09/20 07:30 09/10/20 21:55 Insulin Lispro 100 Unit/Ml SUB-Q 2 unit ACHS PANFILO Administration Protocol Losartan Potassium 25 mg 09/09/20 10:00 09/10/20 12:57 Losartan 25 Mg Tab PO 25 mg QDAY PANFILO Administration Metoprolol Tartrate 25 mg 09/09/20 10:00 09/10/20 21:50 Metoprolol Tartrate 25 Mg Tab PO 25 mg BID PANFILO Administration Nitroglycerin 0.4 mg 09/09/20 04:09 Nitroglycerin 0.4 Mg Tab Subl SL .Q5MIN PRN Chest Pain Ondansetron HCl 4 mg 09/09/20 04:04 Ondansetron 4 Mg/2 Ml Inj IV Q8H PRN Nausea And Vomiting Sodium Chloride 10 ml 09/09/20 10:00 09/10/20 21:51 Sodium Chloride 0.9% 10 Ml Flush Syringe IV 10 ml BID PANFILO Administration Sodium Chloride 10 ml 09/09/20 04:04 Sodium Chloride 0.9% 10 Ml Flush Syringe IV PRN PRN LINE FLUSH
--- NOTE | 2020-09-11 11:13 | Progress Note ---
Assessment and Plan BLE edema and SOB persists. Initiate milrinone gtt. Cont IV bumex BID, digoxin, lopressor, losartan, aldactone. F/u BMP in AM. LifeVest is in place. Of note, pt has h/o chronic atrial fibrillation and atrial flutter for which he has been anticoagulated with Eliquis in the past. Pt reports that following his most recent hospitalization in 07/2020, he was discharged home on Eliquis and developed gross hematuria at home several days after discharge. He discontinued Eliquis on his own and did not seek additional evaluation. Pt reports another episode of "bloody stools" several years ago which also occurred while he was taking Eliquis. Due to h/o bleeding, he does not wish to be resumed on any systemic anticoagulation at this time. If he were to become agreeable to systemic AC, recommend urology and GI evaluations for recommendations regarding resumption of systemic AC. Will follow. The patient has been seen in conjunction with Dr. Narayan who agrees with the assessment and plan of care. - Patient Problems (1) Acute on chronic HFrEF (heart failure with reduced ejection fraction) Current Visit: Yes Status: Acute (2) NICMP (nonischemic cardiomyopathy) Current Visit: Yes Status: Chronic (3) Normal coronary arteries Current Visit: Yes Status: Chronic (4) Atrial fibrillation and flutter Current Visit: Yes Status: Chronic (5) NSVT (nonsustained ventricular tachycardia) Current Visit: Yes Status: Acute (6) Uses LifeVest defibrillator Current Visit: Yes Status: Acute (7) HTN (hypertension) Current Visit: Yes Status: Chronic (8) Diabetes Current Visit: Yes Status: Chronic (9) History of prostate cancer Current Visit: Yes Status: Chronic (10) History of ETOH abuse Current Visit: Yes Status: Chronic (11) Medical non-compliance Current Visit: Yes Status: Chronic (12) History of hematuria Current Visit: Yes Status: Chronic (13) History of GI bleed Current Visit: Yes Status: Chronic Subjective Date of service: 09/11/20 Principal diagnosis: HF Interval history: pt sitting up at bedside, BLE swelling and SOB persists. tele reviewd - in AFib HR 90s. Objective Last Vital Signs Temp 98.5 F 09/11/20 08:00 Pulse 92 H 09/11/20 08:00 Resp 19 09/11/20 08:00 BP 109/80 09/11/20 08:00 Pulse Ox 100 09/11/20 08:00 - Physical Examination General: No Apparent Distress HEENT: Positive: PERRL Neck: Positive: neck supple, trachea midline Cardiac: Positive: irregularly irregular, S1/S2 Lungs: Positive: Decreased Breath Sounds Neuro: Positive: Grossly Intact Abdomen: Positive: Active Bowel Sounds, Distended Skin: Positive: Cool Extremities: Present: upper extr. pulses, lower extr. pulses, +3 Edema (BLE), Cool - Labs and Meds Cardiac Enzymes 09/11/20 Range/Units 04:20 AST 29 (5-40) units/L Comprehensive Metabolic Panel 09/11/20 Range/Units 04:20 Sodium 140 (137-145) mmol/L Potassium 4.2 (3.6-5.0) mmol/L Chloride 98.2 (98-107) mmol/L Carbon Dioxide 31 H (22-30) mmol/L BUN 39 H (9-20) mg/dL Creatinine 1.4 H (0.8-1.3) mg/dL Glucose 116 H (75-100) mg/dL Calcium 9.2 (8.4-10.2) mg/dL AST 29 (5-40) units/L ALT 38 (7-56) units/L Alkaline Phosphatase 88 (35-129) units/L Total Protein 6.1 L (6.3-8.2) g/dL Albumin 3.3 L (3.9-5) g/dL - Imaging and Cardiology EKG: report reviewed, image reviewed Echo: report reviewed ( 07/18/2020: Mild LVH, EF 10 to 15%, grade 1 diastolic dysfunction, RVSP 58 mmHg, moderate mitral regurgitation, mild aortic regurgitation) Cardiac cath: report reviewed (07/20/2020: No angiographic significant CAD, EF 15 to 20%, LVEDP 15 mmHg) - Telemetry EKG Rhythm: Atrial Fibrillation
[2020-09-11] MEDS: METOPROLOL TARTRATE 25 MG TAB PO SCH (11:27)
[2020-09-11] MEDS: DOCUSATE SODIUM 100 MG CAP PO SCH ×2 (11:27→22:00)
[2020-09-11] MEDS: LOSARTAN 25 MG TAB PO SCH (11:28)
[2020-09-11] MEDS ORDERED: MILRINONE-D5W 20 MG/100 ML 20 MG/100 ML BAG IV SCH (12:00)
[2020-09-11] MEDS: DIGOXIN 0.125 MG TAB PO SCH (17:51)
[2020-09-12] MEDS: METOPROLOL TARTRATE 25 MG TAB PO SCH ×3 (03:20→21:49)
[2020-09-12 07:19] LABS: Alanine Aminotransferase 42 units/L (7-56); Albumin 3.1 g/dL (3.9-5); BUN/Creatinine Ratio 32; Blood Urea Nitrogen 41 mg/dL (9-20); Calcium 9.1 mg/dL (8.4-10.2); Hemolysis Index 13
[2020-09-12] MEDS: INSULIN LISPRO 100 UNIT/ML SUB-Q SCH ×4 (07:48→22:00)
[2020-09-12 07:59] LABS: BUN/Creatinine Ratio 32; Blood Urea Nitrogen 41 mg/dL (9-20); Calcium 8.9 mg/dL (8.4-10.2); Hemolysis Index 3
[2020-09-12] MEDS: BUMETANIDE 1 MG/4 ML INJ IV SCH ×2 (08:23→17:14)
[2020-09-12 09:39] LABS: Basophils % (Auto) 0.1 % (0.0-1.8); Eosinophils % (Auto) 0.4 % (0.0-4.3); Hematocrit 37.3 % (35.5-45.6); Hemoglobin 12.1 gm/dl (11.8-15.2); Lymphocytes # (Auto) 1.1 K/mm3 (1.2-5.4); Lymphocytes % (Auto) 13.1 % (13.4-35.0); Mean Corpuscular HGB Conc 32 % (32-34); Mean Corpuscular Volume 83 fl (84-94); Monocytes # (Auto) 0.5 K/mm3 (0.0-0.8); Monocytes % (Auto) 5.6 % (0.0-7.3); Platelet Count 181 K/mm3 (140-440); Red Blood Count 4.52 M/mm3 (3.65-5.03)
[2020-09-12] MEDS: LOSARTAN 25 MG TAB PO SCH (09:40)
[2020-09-12] MEDS: SPIRONOLACTONE 25 MG TAB PO SCH (09:41)
[2020-09-12] MEDS: DOCUSATE SODIUM 100 MG CAP PO SCH ×2 (09:42→21:49)
[2020-09-12 09:49] LABS: Red Cell Distribution Width 20.4 % (13.2-15.2)
--- NOTE | 2020-09-12 10:33 | Progress Note ---
Assessment and Plan Assessment and plan: 60-year-old male with history of heart failure on life vest (EF 10 to 15%), DM 2, HTN, and A. fib who presents [facility] ED with complaints of bilateral lower extremity edema, and shortness of breath. Patient complains of worsening bilateral lower extremity pitting edema extending to scrotum and abdomen x1 w [place]. He states that "the excessive fluid buildup" is so bad that he is on able to lay flat or walk without becoming short of breath. Of note patient was given a LifeVest on 07/24/2020. At the time of my examination patient does not have on LifeVest nor is it in his physical possession. According to patient he forgot it at home because he went out of town and did not carry the vest with him. He states that he will call his brother and ask him to bring it to him. Patient will need to be reeducated and encourage to be compliant with wearing LifeVest. Endorses: Orthopnea, PND, dyspnea on exertion, dyspnea at rest, impaired mobility r/t ble edema Here in the ED, he was noted to have elevated proBNP and chest xray findings of bilateral infiltrates suggestive of CHF with trace pleural effusions. Troponin was elevated. He was started on IV diuretics and admitted. Cardiology has been consulted. Hospital course 09/10. Still has fluid overload. States he is not making much urine. Remains on bumex BID. Cardiology to see. 09/11: Patient remains with volume overload. Continue Bumex discussed with cushion maker will be started on milrinone today. Negative 240 mL documented this fluid balance. Plan discussed with the patient. LifeVest in place. 09/12: Patient continues to improve 550 mL so far fluid balance negative. Discussed need for anticoagulation with the patient he verbalized understanding the need will check urinalysis to ensure no continued hematuria. He informs me that he did have a history of prostate cancer at the time that his anticoagul ation was discontinued after with him of the importance of the anticoagulation per cardiology recommendation. I have also recommended an outpatient GI and urology reevaluation for initiation of the anticoagulation. Risk discussed with the patient of not being on anticoagulation considering his cardiomyopathy and also his atrial fibrillation which increases his risk significantly. He verbalized understanding will like to discuss with his doctor For now continue milrinone drip at this time. Acute on chronic systolic CHF -EF 10-15% seen on Echo (07/18/20) -Bumex 1mg BID -Replete electrolytes PRN -Cardiology on board -Has a life vest Elevated troponin -EKG unrevealing for acute ischemic abnormalities -Patient denies chest pain -Cardiology on board A. fib -Continue rate control with BB -Did not tolerate DOAC due to GI bleed and hematuria -Continuous telemetry monitoring HTN -Monitor BP -Resume home hypertensive meds DM -SSI coverage prn -Lantus Acute kidney injury secondary to vasomotor nephropathy -We will continue to monitor creatinine is 1.4 HLD -Continue statin Hyponatremia present on admission Anemia -Hemoglobin on admission 11.0 -No S/S of active bleeding -Continue to monitor hemoglobin -Transfuse as needed for Hgb < 7 #DVT ppx - SCDs, has a history of GI bleed and hematuria History Interval history: Patient seen and examined, continues to report improvement. Ambulating at the time of my exam no distress at this time. States that he was his doctor Dr. Trever Chavarria that took him off of the anticoagulation medication in the past due to hematuria and possible GI bleed. Denies any recent event of dose. Also states that this was during when he had some prostate cancer issue. He also follows with Dr. Jack urologist out of [place]. Hospitalist Physical - Physical exam Narrative exam: VITAL SIGNS: Reviewed. GENERAL: The patient appears normally developed, Vital signs as documented. HEAD: No signs of head trauma. EYES: Pupils are equal. Extraocular motions intact. EARS: Hearing grossly intact. MOUTH: Oropharynx is normal. NECK: No adenopathy, no JVD. CHEST: Chest with diminished breath sounds bilaterally. No wheezes, rales, or rhonchi. Is wearing his LifeVest CARDIAC: Regular rate and rhythm. S1 and S2, without murmurs, gallops, or rubs. VASCULAR: +1 bilateral pitting edema. Peripheral pulses normal and equal in all extremities. ABDOMEN: Soft, non tender and non distended. No rebound or guarding, and no masses palpated. Bowel Sounds normal. MUSCULOSKELETAL: Good range of motion of all major joints. Extremities without clubbing, cyanosis. +1 bilateral pitting edema extending up to thighs. NEUROLOGIC EXAM: Alert and oriented x 3 No focal sensory or strength deficits. Speech normal. Follows commands. PSYCHIATRIC: Mood normal. SKIN: detail exam as documented in skin assessment - Constitutional Vitals: Temp Pulse Resp BP Pulse Ox 98.5 F 77 18 113/75 98 09/12/20 07:56 09/12/20 09:41 09/12/20 07:56 09/12/20 09:41 09/12/20 07:59 General appearance: Present: mild distress HEART Score - HEART Score Troponin: Troponin T 0.069 ng/mL (0.00-0.029) H D 09/09/20 13:25 Results - Labs CBC & Chem 7: 09/12/20 09:16 09/12/20 06:59 Labs: Laboratory Last Values WBC 8.6 K/mm3 (4.5-11.0) 09/12/20 09:16 RBC 4.52 M/mm3 (3.65-5.03) 09/12/20 09:16 Hgb 12.1 gm/dl (11.8-15.2) 09/12/20 09:16 Hct 37.3 % (35.5-45.6) 09/12/20 09:16 MCV 83 fl (84-94) L 09/12/20 09:16 MCH 27 pg (28-32) L 09/12/20 09:16 MCHC 32 % (32-34) 09/12/20 09:16 RDW 20.4 % (13.2-15.2) H 09/12/20 09:16 Plt Count 181 K/mm3 (140-440) 09/12/20 09:16 Lymph % (Auto) 13.1 % (13.4-35.0) L 09/12/20 09:16 Lynn % (Auto) 5.6 % (0.0-7.3) 09/12/20 09:16 Eos % (Auto) 0.4 % (0.0-4.3) 09/12/20 09:16 Baso % (Auto) 0.1 % (0.0-1.8) 09/12/20 09:16 Lymph # (Auto) 1.1 K/mm3 (1.2-5.4) L 09/12/20 09:16 Lynn # (Auto) 0.5 K/mm3 (0.0-0.8) 09/12/20 09:16 Eos # (Auto) 0.0 K/mm3 (0.0-0.4) 09/12/20 09:16 Baso # (Auto) 0.0 K/mm3 (0.0-0.1) 09/12/20 09:16 Seg Neutrophils % 80.8 % (40.0-70.0) H 09/12/20 09:16 Seg Neutrophils # 7.0 K/mm3 (1.8-7.7) 09/12/20 09:16 Sodium 142 mmol/L (137-145) 09/12/20 06:59 Potassium 3.8 mmol/L (3.6-5.0) 09/12/20 06:59 Chloride 99.8 mmol/L (98-107) 09/12/20 06:59 Carbon Dioxide 35 mmol/L (22-30) H 09/12/20 06:59 Anion Gap 11 mmol/L 09/12/20 06:59 BUN 41 mg/dL (9-20) H 09/12/20 06:59 Creatinine 1.3 mg/dL (0.8-1.3) 09/12/20 06:59 Estimated GFR > 60 ml/min 09/12/20 06:59 BUN/Creatinine Ratio 32 % 09/12/20 06:59 Glucose 137 mg/dL (75-100) H 09/12/20 06:59 POC Glucose 117 mg/dL (70-105) H 09/12/20 07:49 Calcium 8.9 mg/dL (8.4-10.2) 09/12/20 06:59 Magnesium 1.70 mg/dL (1.7-2.3) 09/12/20 06:59 Total Bilirubin 1.00 mg/dL (0.1-1.2) 09/12/20 05:44 AST 33 units/L (5-40) 09/12/20 05:44 ALT 42 units/L (7-56) 09/12/20 05:44 Alkaline Phosphatase 80 units/L (35-129) 09/12/20 05:44 Troponin T 0.069 ng/mL (0.00-0.029) H D 09/09/20 13:25 NT-Pro-B Natriuret Pep 5598 pg/mL (0-900) H 09/09/20 02:38 Total Protein 5.8 g/dL (6.3-8.2) L 09/12/20 05:44 Albumin 3.1 g/dL (3.9-5) L 09/12/20 05:44 Albumin/Globulin Ratio 1.1 % 09/12/20 05:44 Triglycerides 37 mg/dL (2-149) 09/09/20 02:38 Cholesterol 97 mg/dL (50-199) 09/09/20 02:38 LDL Cholesterol Direct 44 mg/dL (50-130) L 09/09/20 02:38 HDL Cholesterol 52 mg/dL (40-59) 09/09/20 02:38 Cholesterol/HDL Ratio 1.86 % 09/09/20 02:38 Nasal Screen MRSA (PCR) Negative (Negative) 09/09/20 Unknown Digoxin 0.3 ng/mL (0.9-2.0) L 09/09/20 13:25 Dale/IV: Voiding Method Urinal Active Medications - Current Medications Current Medications: Generic Name Dose Route Start Last Admin Trade Name Freq PRN Reason Stop Dose Admin Acetaminophen 650 mg 09/09/20 04:04 Acetaminophen 325 Mg Tab PO Q4H PRN Pain MILD(1-3)/Fever >100.5/BOWSER Albuterol 2.5 mg 09/09/20 04:04 Albuterol 2.5 Mg/3 Ml Nebu IH Q3HRT PRN Shortness Of Breath Atorvastatin Calcium 40 mg 09/09/20 22:00 09/11/20 22:00 Atorvastatin 40 Mg Tab PO 40 mg HS PANFILO Administration Bumetanide 1 mg 09/09/20 18:00 09/12/20 08:23 Bumetanide 1 Mg/4 Ml Inj IV 1 mg BID@0600,1800 PANFILO Administration Dextrose 50 ml 09/09/20 04:04 Dextrose 50% In Water (25gm) 50 Ml Syringe IV Q30MIN PRN Hypoglycemia Protocol Digoxin 0.125 mg 09/09/20 17:00 09/11/20 17:51 Digoxin 0.125 Mg Tab PO 0.125 mg DAILY@1700 PANFILO Administration Docusate Sodium 100 mg 09/09/20 10:00 09/12/20 09:42 Docusate Sodium 100 Mg Cap PO 100 mg BID PANFILO Administration Insulin Human Lispro 0 unit 09/09/20 07:30 09/12/20 07:48 Insulin Lispro 100 Unit/Ml SUB-Q Not Given ACHS PANFILO Protocol Losartan Potassium 25 mg 09/09/20 10:00 09/12/20 09:40 Losartan 25 Mg Tab PO 25 mg QDAY PANFILO Administration Metoprolol Tartrate 25 mg 09/09/20 10:00 09/12/20 09:41 Metoprolol Tartrate 25 Mg Tab PO 25 mg BID PANFILO Administration Nitroglycerin 0.4 mg 09/09/20 04:09 Nitroglycerin 0.4 Mg Tab Subl SL .Q5MIN PRN Chest Pain Ondansetron HCl 4 mg 09/09/20 04:04 Ondansetron 4 Mg/2 Ml Inj IV Q8H PRN Nausea And Vomiting Sodium Chloride 10 ml 09/09/20 10:00 09/12/20 09:43 Sodium Chloride 0.9% 10 Ml Flush Syringe IV 10 ml BID PANFILO Administration Sodium Chloride 10 ml 09/09/20 04:04 Sodium Chloride 0.9% 10 Ml Flush Syringe IV PRN PRN LINE FLUSH Spironolactone 25 mg 09/12/20 10:00 09/12/20 09:41 Spironolactone 25 Mg Tab PO 25 mg QDAY PANFILO Administration
[2020-09-12 10:59] LABS: Bilirubin,Urine NEG (Negative); Blood,Urine MOD (Negative); Color,Urine Straw (Yellow); Mucus,Urine FEW /HPF; Protein,Urine <15 mg/dL mg/dL (Negative); Urobilinogen,Urine < 2.0 mg/dL (<2.0)
--- NOTE | 2020-09-12 12:56 | Progress Note ---
Assessment and Plan 60-year-old male with history of chronic HFrEF EF 10 to 15%, DM 2, HTN, and persistent A. fib who presents [facility] ED with complaints of bilateral lower extremity edema, and shortness of breath. Patient complains of worsening bilateral lower extremity pitting edema extending to scrotum and abdomen x1 week. He states that "the excessive fluid buildup" is so bad that he is unable to lay flat or walk without becoming short of breath. Of note patient was given a LifeVest on 07/24/2020. Patient complains of paroxysmal nocturnal dyspnea, or thopnea, dyspnea on exertion, and hematuria. He denies any syncope, chest pain, fever, abdominal pain, diarrhea, or heart palpitations. Of note, pt has h/o chronic atrial fibrillation and atrial flutter for which he has been anticoagulated with Eliquis in the past. Pt reports that following his most recent hospitalization in 07/2020, he was discharged home on Eliquis and developed gross hematuria at home several days after discharge. He discontinued Eliquis on his own and did not seek additional evaluation. Pt reports another episode of "bloody stools" several years ago which also occurred while he was taking Eliquis. Due to h/o bleeding, he does not wish to be resumed on any systemic anticoagulation at this time. If he were to become agreeable to systemic AC, recommend urology and GI evaluations for recommendations regarding resumption of systemic AC. Tele reviewed: SR 86. No events. Troponins are nonspecific and subacute. Continue to trend Lamar. BLE edema persists. Pt reports significant improvement of SOB. Cont IV bumex BID, digoxin, lopressor, losartan, aldactone. F/u BMP in AM. LifeVest is in place. Will follow. The patient has been seen in conjunction with Dr. Narayan who agrees with the assessment and plan of care. - Patient Problems (1) Acute on chronic HFrEF (heart failure with reduced ejection fraction) Current Visit: Yes Status: Acute (2) NICMP (nonischemic cardiomyopathy) Current Visit: Yes Status: Chronic (3) Normal coronary arteries Current Visit: Yes Status: Chronic (4) Atrial fibrillation and flutter Current Visit: Yes Status: Chronic (5) NSVT (nonsustained ventricular tachycardia) Current Visit: Yes Status: Acute (6) Uses LifeVest defibrillator Current Visit: Yes Status: Acute (7) HTN (hypertension) Current Visit: Yes Status: Chronic (8) Diabetes Current Visit: Yes Status: Chronic (9) History of prostate cancer Current Visit: Yes Status: Chronic (10) History of ETOH abuse Current Visit: Yes Status: Chronic (11) Medical non-compliance Current Visit: Yes Status: Chronic (12) History of hematuria Current Visit: Yes Status: Chronic (13) History of GI bleed Current Visit: Yes Status: Chronic Subjective Date of service: 09/12/20 Principal diagnosis: HFrEF Interval history: Pt resting comfortably in chair at bedside. Tele reviewed: SR 86. No events. Objective Last Vital Signs Temp 98.5 F 09/12/20 07:56 Pulse 86 09/12/20 10:47 Resp 18 09/12/20 07:56 BP 113/75 09/12/20 09:41 Pulse Ox 98 09/12/20 07:59 - Physical Examination General: No Apparent Distress HEENT: Positive: PERRL Neck: Positive: neck supple, trachea midline Cardiac: Positive: Reg Rate and Rhythm, S1/S2 Lungs: Positive: clear to auscultation, Normal Breath Sounds Neuro: Positive: Grossly Intact Abdomen: Positive: Active Bowel Sounds, Distended Skin: Positive: Cool Extremities: Present: upper extr. pulses, lower extr. pulses, +3 Edema (BLE), Cool - Labs and Meds Cardiac Enzymes 09/12/20 Range/Units 05:44 AST 33 (5-40) units/L CBC 09/12/20 Range/Units 09:16 WBC 8.6 (4.5-11.0) K/mm3 RBC 4.52 (3.65-5.03) M/mm3 Hgb 12.1 (11.8-15.2) gm/dl Hct 37.3 (35.5-45.6) % Plt Count 181 (140-440) K/mm3 Lymph # (Auto) 1.1 L (1.2-5.4) K/mm3 [place] # (Auto) 0.5 (0.0-0.8) K/mm3 Eos # (Auto) 0.0 (0.0-0.4) K/mm3 Baso # (Auto) 0.0 (0.0-0.1) K/mm3 Comprehensive Metabolic Panel 04/14/21 04/14/21 Range/Units 05:44 06:59 Sodium 142 142 (137-145) mmol/L Potassium 4.0 3.8 (3.6-5.0) mmol/L Chloride 99.1 99.8 (98-107) mmol/L Carbon Dioxide 34 H 35 H (22-30) mmol/L BUN 41 H 41 H (9-20) mg/dL Creatinine 1.3 1.3 (0.8-1.3) mg/dL Glucose 139 H 137 H (75-100) mg/dL Calcium 9.1 8.9 (8.4-10.2) mg/dL AST 33 (5-40) units/L ALT 42 (7-56) units/L Alkaline Phosphatase 80 (35-129) units/L Total Protein 5.8 L (6.3-8.2) g/dL Albumin 3.1 L (3.9-5) g/dL - Imaging and Cardiology EKG: report reviewed, image reviewed Echo: report reviewed ( 07/18/2020: Mild LVH, EF 10 to 15%, grade 1 diastolic dysfunction, RVSP 58 mmHg, moderate mitral regurgitation, mild aortic regurgitation) Cardiac cath: report reviewed (07/20/2020: No angiographic significant CAD, EF 15 to 20%, LVEDP 15 mmHg) - Telemetry EKG Rhythm: Sinus Rhythm
[2020-09-12] MEDS: DIGOXIN 0.125 MG TAB PO SCH (17:14)
[2020-09-13 07:00] LABS: Alanine Aminotransferase 38 units/L (7-56); BUN/Creatinine Ratio 34; Blood Urea Nitrogen 37 mg/dL (9-20); Calcium 8.8 mg/dL (8.4-10.2); Hemolysis Index 7
[2020-09-13] MEDS: BUMETANIDE 1 MG/4 ML INJ IV SCH ×2 (07:08→18:40)
[2020-09-13] MEDS: INSULIN LISPRO 100 UNIT/ML SUB-Q SCH ×4 (09:07→22:55)
[2020-09-13] MEDS: LOSARTAN 25 MG TAB PO SCH (09:23)
[2020-09-13] MEDS: DOCUSATE SODIUM 100 MG CAP PO SCH ×2 (09:24→22:55)
[2020-09-13] MEDS: SPIRONOLACTONE 25 MG TAB PO SCH (09:24)
[2020-09-13] MEDS: METOPROLOL TARTRATE 25 MG TAB PO SCH ×2 (09:24→22:55)
--- NOTE | 2020-09-13 09:39 | Progress Note ---
Assessment and Plan 60-year-old male with history of chronic HFrEF EF 10 to 15%, DM 2, HTN, and persistent A. fib who presents [facility] ED with complaints of bilateral lower extremity edema, and shortness of breath. Patient complains of worsening bilateral lower extremity pitting edema extending to scrotum and abdomen x1 week. He states that "the excessive fluid buildup" is so bad that he is unable to lay flat or walk without becoming short of breath. Of note patient was given a LifeVest on 07/24/2020. Patient complains of paroxysmal nocturnal dyspnea, or thopnea, dyspnea on exertion, and hematuria. He denies any syncope, chest pain, fever, abdominal pain, diarrhea, or heart palpitations. Of note, pt has h/o chronic atrial fibrillation and atrial flutter for which he has been anticoagulated with Eliquis in the past. Pt reports that following his most recent hospitalization in 07/2020, he was discharged home on Eliquis and developed gross hematuria at home several days after discharge. He discontinued Eliquis on his own and did not seek additional evaluation. Pt reports another episode of "bloody stools" several years ago which also occurred while he was taking Eliquis. Due to h/o bleeding, he does not wish to be resumed on any systemic anticoagulation at this time. If he were to become agreeable to systemic AC, recommend urology and GI evaluations for recommendations regarding resumption of systemic AC. Tele reviewed: Afib 80s. No events. Troponins are nonspecific and subacute. Continue to trend Lamar. BLE edema persists. Pt reports significant improvement of SOB. Optimize cardiac regimen. Initiate Zaroxalyn 2.5mg daily. Continue IV bumex BID, digoxin, lopressor, losartan, aldactone. F/u BMP in AM. LifeVest is in place. Discussed expectations with pt. Anticipate may discharge tomorrow pending clinical course. Pt will need outpatient f/u with urology for hematuria. He is recommended to be anticoagulated due to paroxysmal Afib, but currently refuses all AC due to hematuria with use and hx of GI bleed. Pt reports that he has begun process of applying for health insurance which has been a barrier to his care in the past. Will follow. The patient has been seen in conjunction with Dr. Narayan who agrees with the assessment and plan of care. - Patient Problems (1) Acute on chronic HFrEF (heart failure with reduced ejection fraction) Current Visit: Yes Status: Acute (2) NICMP (nonischemic cardiomyopathy) Current Visit: Yes Status: Chronic (3) Normal coronary arteries Current Visit: Yes Status: Chronic (4) Atrial fibrillation and flutter Current Visit: Yes Status: Chronic (5) NSVT (nonsustained ventricular tachycardia) Current Visit: Yes Status: Acute (6) Uses LifeVest defibrillator Current Visit: Yes Status: Acute (7) HTN (hypertension) Current Visit: Yes Status: Chronic (8) Diabetes Current Visit: Yes Status: Chronic (9) History of prostate cancer Current Visit: Yes Status: Chronic (10) History of ETOH abuse Current Visit: Yes Status: Chronic (11) Medical non-compliance Current Visit: Yes Status: Chronic (12) History of hematuria Current Visit: Yes Status: Chronic (13) History of GI bleed Current Visit: Yes Status: Chronic Subjective Date of service: 09/13/20 Principal diagnosis: HFrEF Interval history: Pt resting comfortably in chair at bedside. BLE edema is persistent, but pt reports significant improvement in SOB. Tele reviewed: Afib 80s. Objective Last Vital Signs Temp 96.8 F L 09/13/20 09:18 Pulse 86 09/13/20 09:24 Resp 18 09/13/20 09:18 BP 105/75 09/13/20 09:24 Pulse Ox 100 09/13/20 09:18 - Physical Examination General: No Apparent Distress HEENT: Positive: PERRL Neck: Positive: neck supple, trachea midline Cardiac: Positive: irregularly irregular, S1/S2 Lungs: Positive: clear to auscultation, Normal Breath Sounds Neuro: Positive: Grossly Intact Abdomen: Positive: Active Bowel Sounds, Distended Skin: Positive: Cool Extremities: Present: upper extr. pulses, lower extr. pulses, +3 Edema (BLE), Cool - Labs and Meds Cardiac Enzymes 09/13/20 Range/Units 06:14 AST 27 (5-40) units/L CBC 09/12/20 Range/Units 09:16 WBC 8.6 (4.5-11.0) K/mm3 RBC 4.52 (3.65-5.03) M/mm3 Hgb 12.1 (11.8-15.2) gm/dl Hct 37.3 (35.5-45.6) % Plt Count 181 (140-440) K/mm3 Lymph # (Auto) 1.1 L (1.2-5.4) K/mm3 [place] # (Auto) 0.5 (0.0-0.8) K/mm3 Eos # (Auto) 0.0 (0.0-0.4) K/mm3 Baso # (Auto) 0.0 (0.0-0.1) K/mm3 Comprehensive Metabolic Panel 09/13/20 Range/Units 06:14 Sodium 140 (137-145) mmol/L Potassium 3.4 L (3.6-5.0) mmol/L Chloride 98.9 (98-107) mmol/L Carbon Dioxide 35 H (22-30) mmol/L BUN 37 H (9-20) mg/dL Creatinine 1.1 (0.8-1.3) mg/dL Glucose 141 H (75-100) mg/dL Calcium 8.8 (8.4-10.2) mg/dL AST 27 (5-40) units/L ALT 38 (7-56) units/L Alkaline Phosphatase 76 (35-129) units/L Total Protein 5.8 L (6.3-8.2) g/dL Albumin 3.0 L (3.9-5) g/dL - Imaging and Cardiology EKG: report reviewed, image reviewed Echo: report reviewed ( 07/18/2020: Mild LVH, EF 10 to 15%, grade 1 diastolic dysfunction, RVSP 58 mmHg, moderate mitral regurgitation, mild aortic regurgitation) Cardiac cath: report reviewed (07/20/2020: No angiographic significant CAD, EF 15 to 20%, LVEDP 15 mmHg) - Telemetry EKG Rhythm: Atrial Fibrillation
--- NOTE | 2020-09-13 09:43 | Progress Note ---
Assessment and Plan Assessment and plan: 60-year-old male with history of heart failure on life vest (EF 10 to 15%), DM 2, HTN, and A. fib who presents [facility] ED with complaints of bilateral lower extremity edema, and shortness of breath. Patient complains of worsening bilateral lower extremity pitting edema extending to scrotum and abdomen x1 w ute. He states that "the excessive fluid buildup" is so bad that he is on able to lay flat or walk without becoming short of breath. Of note patient was given a LifeVest on 07/24/2020. At the time of my examination patient does not have on LifeVest nor is it in his physical possession. According to patient he forgot it at home because he went out of town and did not carry the vest with him. He states that he will call his brother and ask him to bring it to him. Patient will need to be reeducated and encourage to be compliant with wearing LifeVest. Endorses: Orthopnea, PND, dyspnea on exertion, dyspnea at rest, impaired mobility r/t ble edema Here in the ED, he was noted to have elevated proBNP and chest xray findings of bilateral infiltrates suggestive of CHF with trace pleural effusions. Troponin was elevated. He was started on IV diuretics and admitted. Cardiology has been consulted. Hospital course 09/10. Still has fluid overload. States he is not making much urine. Remains on bumex BID. Cardiology to see. 09/11: Patient remains with volume overload. Continue Bumex discussed with head piece assembler will be started on milrinone today. Negative 240 mL documented this fluid balance. Plan discussed with the patient. LifeVest in place. 09/12: Patient continues to improve 550 mL so far fluid balance negative. Discussed need for anticoagulation with the patient he verbalized understanding the need will check urinalysis to ensure no continued hematuria. He informs me that he did have a history of prostate cancer at the time that his anticoagul ation was discontinued after with him of the importance of the anticoagulation per cardiology recommendation. I have also recommended an outpatient GI and urology reevaluation for initiation of the anticoagulation. Risk discussed with the patient of not being on anticoagulation considering his cardiomyopathy and also his atrial fibrillation which increases his risk significantly. He verbalized understanding will like to discuss with his doctor For now continue milrinone drip at this time. 09/13: Continue current management. Discussed with her head piece assembler today patient's respiratory status is improving Zaroxolyn 2.5 mg added to medication milrinone has been discontinued if he continues to show improvement will discharge tomorrow. A urinalysis has been reviewed no evidence of hematuria although patient again would like to discuss with his primary care physician Dr. Chavarria prior to reinitiation of any anticoagulation. Our recommendation is that he starts back on anticoagulation unless bleeding is noted. Anticipate discharge in a.m. Acute on chronic systolic CHF -EF 10-15% seen on Echo (07/18/20) -Bumex 1mg BID -Replete electrolytes PRN -Cardiology on board -Has a life vest Elevated troponin -EKG unrevealing for acute ischemic abnormalities -Patient denies chest pain -Cardiology on board A. fib -Continue rate control with BB -Did not tolerate DOAC due to GI bleed and hematuria -Continuous telemetry monitoring HTN -Monitor BP -Resume home hypertensive meds DM -SSI coverage prn -Lantus Acute kidney injury secondary to vasomotor nephropathy -We will continue to monitor creatinine is 1.4 HLD -Continue statin Hyponatremia present on admission Anemia -Hemoglobin on admission 11.0 -No S/S of active bleeding -Continue to monitor hemoglobin -Transfuse as needed for Hgb < 7 #DVT ppx - SCDs, has a history of GI bleed and hematuria History Interval history: Patient seen and examined, continues to report improvement. No new complaints at this time still with swelling bilateral lower extremity. No hematuria Hospitalist Physical - Physical exam Narrative exam: VITAL SIGNS: Reviewed. GENERAL: The patient appears normally developed, Vital signs as documented. HEAD: No signs of head trauma. EYES: Pupils are equal. Extraocular motions intact. EARS: Hearing grossly intact. MOUTH: Oropharynx is normal. NECK: No adenopathy, no JVD. CHEST: Chest with diminished breath sounds bilaterally. No wheezes, rales, or rhonchi. Is wearing his LifeVest CARDIAC: Regular rate and rhythm. S1 and S2, without murmurs, gallops, or rubs. VASCULAR: +2 bilateral pitting edema. Peripheral pulses normal and equal in all extremities. ABDOMEN: Soft, non tender and non distended. No rebound or guarding, and no masses palpated. Bowel Sounds normal. MUSCULOSKELETAL: Good range of motion of all major joints. Extremities without clubbing, cyanosis. +2 bilateral pitting edema extending up to thighs. NEUROLOGIC EXAM: Alert and oriented x 3 No focal sensory or strength deficits. Speech normal. Follows commands. PSYCHIATRIC: Mood normal. SKIN: detail exam as documented in skin assessment - Constitutional Vitals: Temp Pulse Resp BP Pulse Ox 96.8 F L 86 18 105/75 100 09/13/20 09:18 09/13/20 09:24 09/13/20 09:18 09/13/20 09:24 09/13/20 09:18 General appearance: Present: mild distress HEART Score - HEART Score Troponin: Troponin T 0.054 ng/mL (0.00-0.029) H D 09/13/20 06:14 Results - Labs CBC & Chem 7: 09/12/20 09:16 09/13/20 06:14 Labs: Laboratory Last Values WBC 8.6 K/mm3 (4.5-11.0) 09/12/20 09:16 RBC 4.52 M/mm3 (3.65-5.03) 09/12/20 09:16 Hgb 12.1 gm/dl (11.8-15.2) 09/12/20 09:16 Hct 37.3 % (35.5-45.6) 09/12/20 09:16 MCV 83 fl (84-94) L 09/12/20 09:16 MCH 27 pg (28-32) L 09/12/20 09:16 MCHC 32 % (32-34) 09/12/20 09:16 RDW 20.4 % (13.2-15.2) H 09/12/20 09:16 Plt Count 181 K/mm3 (140-440) 09/12/20 09:16 Lymph % (Auto) 13.1 % (13.4-35.0) L 09/12/20 09:16 [place] % (Auto) 5.6 % (0.0-7.3) 09/12/20 09:16 Eos % (Auto) 0.4 % (0.0-4.3) 09/12/20 09:16 Baso % (Auto) 0.1 % (0.0-1.8) 09/12/20 09:16 Lymph # (Auto) 1.1 K/mm3 (1.2-5.4) L 09/12/20 09:16 [place] # (Auto) 0.5 K/mm3 (0.0-0.8) 09/12/20 09:16 Eos # (Auto) 0.0 K/mm3 (0.0-0.4) 09/12/20 09:16 Baso # (Auto) 0.0 K/mm3 (0.0-0.1) 09/12/20 09:16 Seg Neutrophils % 80.8 % (40.0-70.0) H 09/12/20 09:16 Seg Neutrophils # 7.0 K/mm3 (1.8-7.7) 09/12/20 09:16 Sodium 140 mmol/L (137-145) 09/13/20 06:14 Potassium 3.4 mmol/L (3.6-5.0) L 09/13/20 06:14 Chloride 98.9 mmol/L (98-107) 09/13/20 06:14 Carbon Dioxide 35 mmol/L (22-30) H 09/13/20 06:14 Anion Gap 10 mmol/L 09/13/20 06:14 BUN 37 mg/dL (9-20) H 09/13/20 06:14 Creatinine 1.1 mg/dL (0.8-1.3) 09/13/20 06:14 Estimated GFR > 60 ml/min 09/13/20 06:14 BUN/Creatinine Ratio 34 % 09/13/20 06:14 Glucose 141 mg/dL (75-100) H 09/13/20 06:14 POC Glucose 102 mg/dL (70-105) 09/12/20 20:39 Calcium 8.8 mg/dL (8.4-10.2) 09/13/20 06:14 Magnesium 1.80 mg/dL (1.7-2.3) 09/13/20 06:14 Total Bilirubin 0.80 mg/dL (0.1-1.2) 09/13/20 06:14 AST 27 units/L (5-40) 09/13/20 06:14 ALT 38 units/L (7-56) 09/13/20 06:14 Alkaline Phosphatase 76 units/L (35-129) 09/13/20 06:14 Troponin T 0.054 ng/mL (0.00-0.029) H D 09/13/20 06:14 NT-Pro-B Natriuret Pep 5598 pg/mL (0-900) H 09/09/20 02:38 Total Protein 5.8 g/dL (6.3-8.2) L 09/13/20 06:14 Albumin 3.0 g/dL (3.9-5) L 09/13/20 06:14 Albumin/Globulin Ratio 1.1 % 09/13/20 06:14 Triglycerides 37 mg/dL (2-149) 09/09/20 02:38 Cholesterol 97 mg/dL (50-199) 09/09/20 02:38 LDL Cholesterol Direct 44 mg/dL (50-130) L 09/09/20 02:38 HDL Cholesterol 52 mg/dL (40-59) 09/09/20 02:38 Cholesterol/HDL Ratio 1.86 % 09/09/20 02:38 Urine Color Straw (Yellow) 09/12/20 Unknown Urine Turbidity Clear (Clear) 09/12/20 Unknown Urine pH 6.0 (5.0-7.0) 09/12/20 Unknown Ur Specific [place] 1.006 (1.003-1.030) 09/12/20 Unknown Urine Protein <15 mg/dl mg/dL (Negative) 09/12/20 Unknown Urine Glucose (UA) 50 mg/dL (Negative) 09/12/20 Unknown Urine Ketones Neg mg/dL (Negative) 09/12/20 Unknown Urine Blood Mod (Negative) 09/12/20 Unknown Urine Nitrite Neg (Negative) 09/12/20 Unknown Urine Bilirubin Neg (Negative) 09/12/20 Unknown Urine Urobilinogen < 2.0 mg/dL (<2.0) 09/12/20 Unknown Ur Leukocyte Esterase Neg (Negative) 09/12/20 Unknown Urine WBC (Auto) 1.0 /HPF (0.0-6.0) 09/12/20 Unknown Urine RBC (Auto) 19.0 /HPF (0.0-6.0) 09/12/20 Unknown Urine Mucus Few /HPF 09/12/20 Unknown Nasal Screen MRSA (PCR) Negative (Negative) 09/09/20 Unknown Digoxin 0.3 ng/mL (0.9-2.0) L 09/09/20 13:25 Dale/IV: Voiding Method Urinal Active Medications - Current Medications Current Medications: Generic Name Dose Route Start Last Admin Trade Name Freq PRN Reason Stop Dose Admin Acetaminophen 650 mg 09/09/20 04:04 Acetaminophen 325 Mg Tab PO Q4H PRN Pain MILD(1-3)/Fever >100.5/BOWSER Albuterol 2.5 mg 09/09/20 04:04 Albuterol 2.5 Mg/3 Ml Nebu IH Q3HRT PRN Shortness Of Breath Atorvastatin Calcium 40 mg 09/09/20 22:00 09/12/20 21:50 Atorvastatin 40 Mg Tab PO 40 mg HS PANFILO Administration Bumetanide 1 mg 09/09/20 18:00 09/13/20 07:08 Bumetanide 1 Mg/4 Ml Inj IV 1 mg BID@0600,1800 PANFILO Administration Dextrose 50 ml 09/09/20 04:04 Dextrose 50% In Water (25gm) 50 Ml Syringe IV Q30MIN PRN Hypoglycemia Protocol Digoxin 0.125 mg 09/09/20 17:00 09/12/20 17:14 Digoxin 0.125 Mg Tab PO 0.125 mg DAILY@1700 PANFILO Administration Docusate Sodium 100 mg 09/09/20 10:00 09/13/20 09:24 Docusate Sodium 100 Mg Cap PO 100 mg BID PANFILO Administration Insulin Human Lispro 0 unit 09/09/20 07:30 09/13/20 09:07 Insulin Lispro 100 Unit/Ml SUB-Q Not Given ACHS PANFILO Protocol Losartan Potassium 25 mg 09/09/20 10:00 09/13/20 09:23 Losartan 25 Mg Tab PO Not Given QDAY PANFILO Metoprolol Tartrate 25 mg 09/09/20 10:00 09/13/20 09:24 Metoprolol Tartrate 25 Mg Tab PO 25 mg BID PANFILO Administration Nitroglycerin 0.4 mg 09/09/20 04:09 Nitroglycerin 0.4 Mg Tab Subl SL .Q5MIN PRN Chest Pain Ondansetron HCl 4 mg 09/09/20 04:04 Ondansetron 4 Mg/2 Ml Inj IV Q8H PRN Nausea And Vomiting Sodium Chloride 10 ml 09/09/20 10:00 09/13/20 09:25 Sodium Chloride 0.9% 10 Ml Flush Syringe IV 10 ml BID PANFILO Administration Sodium Chloride 10 ml 09/09/20 04:04 Sodium Chloride 0.9% 10 Ml Flush Syringe IV PRN PRN LINE FLUSH Spironolactone 25 mg 09/12/20 10:00 09/13/20 09:24 Spironolactone 25 Mg Tab PO 25 mg QDAY PANFILO Administration
[2020-09-13] MEDS ORDERED: POTASSIUM CHLORIDE ER 20 MEQ TAB PO SCH (10:30)
--- NOTE | 2020-09-13 11:30 | Electrocardiograph Report ---
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
[2020-09-13] MEDS: metOLazone 2.5 MG TAB PO SCH (17:44)
[2020-09-13] MEDS: DIGOXIN 0.125 MG TAB PO SCH (17:45)
[2020-09-14 06:34] LABS: Alanine Aminotransferase 36 units/L (7-56); Albumin 3.3 g/dL (3.9-5); BUN/Creatinine Ratio 29; Blood Urea Nitrogen 32 mg/dL (9-20); Calcium 9.1 mg/dL (8.4-10.2); Hemolysis Index 3
[2020-09-14] MEDS: BUMETANIDE 1 MG/4 ML INJ IV SCH (07:00)
[2020-09-14] MEDS: INSULIN LISPRO 100 UNIT/ML SUB-Q SCH ×4 (09:27→21:34)
[2020-09-14] MEDS: METOPROLOL TARTRATE 25 MG TAB PO SCH ×2 (09:28→21:33)
[2020-09-14] MEDS: LOSARTAN 25 MG TAB PO SCH (09:28)
[2020-09-14] MEDS: DOCUSATE SODIUM 100 MG CAP PO SCH ×2 (09:28→21:33)
[2020-09-14] MEDS: SPIRONOLACTONE 25 MG TAB PO SCH (09:28)
[2020-09-14] MEDS: POTASSIUM CHLORIDE ER 20 MEQ TAB PO SCH ×2 (09:33→12:49)
[2020-09-14] MEDS: POTASSIUM CHLORIDE 10 MEQ 10 MEQ/100 ML BAG IV SCH ×4 (09:37→21:35)
--- NOTE | 2020-09-14 09:48 | Progress Note ---
Assessment and Plan 60-year-old male with history of chronic HFrEF EF 10 to 15%, DM 2, HTN, and persistent A. fib who presents [facility] ED with complaints of bilateral lower extremity edema, and shortness of breath. Patient complains of worsening bilateral lower extremity pitting edema extending to scrotum and abdomen x1 week. He states that "the excessive fluid buildup" is so bad that he is unable to lay flat or walk without becoming short of breath. Of note patient was given a LifeVest on 07/24/2020. Patient complains of paroxysmal nocturnal dyspnea, or thopnea, dyspnea on exertion, and hematuria. He denies any syncope, chest pain, fever, abdominal pain, diarrhea, or heart palpitations. Of note, pt has h/o chronic atrial fibrillation and atrial flutter for which he has been anticoagulated with Eliquis in the past. Pt reports that following his most recent hospitalization in 07/2020, he was discharged home on Eliquis and developed gross hematuria at home several days after discharge. He discontinued Eliquis on his own and did not seek additional evaluation. Pt reports another episode of "bloody stools" several years ago which also occurred while he was taking Eliquis. Due to h/o bleeding, he does not wish to be resumed on any systemic anticoagulation at this time. If he were to become agreeable to systemic AC, recommend urology and GI evaluations for recommendations regarding resumption of systemic AC. Tele reviewed: Afib 80s. No events. Troponins are nonspecific and subacute. Continue to trend Lamar. BLE edema persists. Pt reports significant improvement of SOB. Optimize cardiac regimen. Initiate Zaroxalyn 2.5mg daily. Continue IV bumex BID, digoxin, lopressor, losartan, aldactone. F/u BMP in AM. LifeVest is in place. Discussed expectations with pt. Anticipate may discharge tomorrow pending clinical course. Pt will need outpatient f/u with urology for hematuria. He is recommended to be anticoagulated due to paroxysmal Afib, but currently refuses all AC due to hematuria with use and hx of GI bleed. Pt reports that he has begun process of applying for health insurance which has been a barrier to his care in the past. Will follow. plan to dc on Bumex 1mg PO BID, Zaroxolyn 2.5mg PO Daily The patient has been seen in conjunction with Dr. Narayan who agrees with the assessment and plan of care. - Patient Problems (1) Acute on chronic HFrEF (heart failure with reduced ejection fraction) Current Visit: Yes Status: Acute (2) NICMP (nonischemic cardiomyopathy) Current Visit: Yes Status: Chronic (3) Normal coronary arteries Current Visit: Yes Status: Chronic (4) Atrial fibrillation and flutter Current Visit: Yes Status: Chronic (5) NSVT (nonsustained ventricular tachycardia) Current Visit: Yes Status: Acute (6) Uses LifeVest defibrillator Current Visit: Yes Status: Acute (7) HTN (hypertension) Current Visit: Yes Status: Chronic (8) Diabetes Current Visit: Yes Status: Chronic (9) History of prostate cancer Current Visit: Yes Status: Chronic (10) History of ETOH abuse Current Visit: Yes Status: Chronic (11) Medical non-compliance Current Visit: Yes Status: Chronic (12) History of hematuria Current Visit: Yes Status: Chronic (13) History of GI bleed Current Visit: Yes Status: Chronic Subjective Date of service: 09/14/20 Principal diagnosis: HFrEF Objective Vital Signs Temp Pulse Resp BP Pulse Ox 09/14/20 09:28 69 113/80 09/14/20 08:35 97.8 F 69 18 113/80 90 09/14/20 04:10 97.5 F L 75 18 105/66 99 09/13/20 23:44 97.4 F L 72 18 111/71 91 09/13/20 22:55 61 108/70 09/13/20 22:00 72 09/13/20 19:57 98.1 F 52 L 16 116/82 96 09/13/20 17:45 72 101/75 09/13/20 16:58 78 09/13/20 16:25 98.4 F 72 18 101/75 100 09/13/20 11:35 98.5 F 60 18 97/65 99 09/13/20 11:15 77 - Physical Examination General: No Apparent Distress HEENT: Positive: PERRL Neck: Positive: neck supple, trachea midline Neuro: Positive: Grossly Intact Abdomen: Positive: Active Bowel Sounds, Distended Skin: Positive: Cool Extremities: Present: upper extr. pulses, lower extr. pulses, +3 Edema (BLE), Cool - Labs and Meds Cardiac Enzymes 09/14/20 Range/Units 04:37 AST 22 (5-40) units/L Comprehensive Metabolic Panel 09/14/20 Range/Units 04:37 Sodium 141 (137-145) mmol/L Potassium 3.0 L (3.6-5.0) mmol/L Chloride 96.4 L (98-107) mmol/L Carbon Dioxide 37 H (22-30) mmol/L BUN 32 H (9-20) mg/dL Creatinine 1.1 (0.8-1.3) mg/dL Glucose 101 H (75-100) mg/dL Calcium 9.1 (8.4-10.2) mg/dL AST 22 (5-40) units/L ALT 36 (7-56) units/L Alkaline Phosphatase 75 (35-129) units/L Total Protein 6.3 (6.3-8.2) g/dL Albumin 3.3 L (3.9-5) g/dL - Imaging and Cardiology EKG: report reviewed, image reviewed Echo: report reviewed ( 07/18/2020: Mild LVH, EF 10 to 15%, grade 1 diastolic dysfunction, RVSP 58 mmHg, moderate mitral regurgitation, mild aortic regurgitation) Cardiac cath: report reviewed (07/20/2020: No angiographic significant CAD, EF 15 to 20%, LVEDP 15 mmHg)
--- NOTE | 2020-09-14 10:08 | Progress Note ---
Assessment and Plan 60-year-old male with history of chronic HFrEF EF 10 to 15%, DM 2, HTN, and persistent A. fib who presents [facility] ED with complaints of bilateral lower extremity edema, and shortness of breath. Patient complains of worsening bilateral lower extremity pitting edema extending to scrotum and abdomen x1 week. He states that "the excessive fluid buildup" is so bad that he is unable to lay flat or walk without becoming short of breath. Of note patient was given a LifeVest on 07/24/2020. Patient complains of paroxysmal nocturnal dyspnea, or thopnea, dyspnea on exertion, and hematuria. He denies any syncope, chest pain, fever, abdominal pain, diarrhea, or heart palpitations. Of note, pt has h/o chronic atrial fibrillation and atrial flutter for which he has been anticoagulated with Eliquis in the past. Pt reports that following his most recent hospitalization in 07/2020, he was discharged home on Eliquis and developed gross hematuria at home several days after discharge. He discontinued Eliquis on his own and did not seek additional evaluation. Pt reports another episode of "bloody stools" several years ago which also occurred while he was taking Eliquis. Due to h/o bleeding, he does not wish to be resumed on any systemic anticoagulation at this time. If he were to become agreeable to systemic AC, recommend urology and GI evaluations for recommendations regarding resumption of systemic AC. Tele reviewed: Afib 80s. No events. Troponins are nonspecific and subacute. Pt will need outpatient f/u with urology for hematuria. He is recommended to be anticoagulated due to paroxysmal Afib, but currently refuses all AC due to hematuria with use and hx of GI bleed. Pt reports that he has begun process of applying for health insurance which has been a barrier to his care in the past. LifeVest is in place. Optimize cardiac regimen. Convert Bumex to 1mg PO BID, continue Zaroxalyn 2.5mg PO daily (30 min before PM Bumex), digoxin, lopressor, losartan, aldactone. Currently stable cardiac status. Nearing euvolemia. Pt may discharge from cardiology perspective. Pt should f/u with Dr Madeline Miles in our [place] office on 10/01/2020 at 3pm. The patient has been seen in conjunction with Dr. Narayan who agrees with the assessment and plan of care. - Patient Problems (1) Acute on chronic HFrEF (heart failure with reduced ejection fraction) Current Visit: Yes Status: Acute (2) NICMP (nonischemic cardiomyopathy) Current Visit: Yes Status: Chronic (3) Normal coronary arteries Current Visit: Yes Status: Chronic (4) Atrial fibrillation and flutter Current Visit: Yes Status: Chronic (5) NSVT (nonsustained ventricular tachycardia) Current Visit: Yes Status: Acute (6) Uses LifeVest defibrillator Current Visit: Yes Status: Acute (7) HTN (hypertension) Current Visit: Yes Status: Chronic (8) Diabetes Current Visit: Yes Status: Chronic (9) History of prostate cancer Current Visit: Yes Status: Chronic (10) History of ETOH abuse Current Visit: Yes Status: Chronic (11) Medical non-compliance Current Visit: Yes Status: Chronic (12) History of hematuria Current Visit: Yes Status: Chronic (13) History of GI bleed Current Visit: Yes Status: Chronic Subjective Date of service: 09/14/20 Principal diagnosis: HFrEF Interval history: Pt resting comfortably in chair at bedside. Tele reviewed: Afib 80s. No events. Objective Last Vital Signs Temp 97.8 F 09/14/20 08:35 Pulse 69 09/14/20 09:28 Resp 18 09/14/20 08:35 BP 113/80 09/14/20 09:28 Pulse Ox 90 09/14/20 08:35 - Physical Examination General: No Apparent Distress HEENT: Positive: PERRL Neck: Positive: neck supple, trachea midline Cardiac: Positive: irregularly irregular, S1/S2 Lungs: Positive: Normal Exam Neuro: Positive: Grossly Intact Abdomen: Positive: Active Bowel Sounds, Distended Skin: Positive: Cool Extremities: Present: upper extr. pulses, lower extr. pulses, +1 Edema, Cool - Labs and Meds Cardiac Enzymes 09/14/20 Range/Units 04:37 AST 22 (5-40) units/L Comprehensive Metabolic Panel 09/14/20 Range/Units 04:37 Sodium 141 (137-145) mmol/L Potassium 3.0 L (3.6-5.0) mmol/L Chloride 96.4 L (98-107) mmol/L Carbon Dioxide 37 H (22-30) mmol/L BUN 32 H (9-20) mg/dL Creatinine 1.1 (0.8-1.3) mg/dL Glucose 101 H (75-100) mg/dL Calcium 9.1 (8.4-10.2) mg/dL AST 22 (5-40) units/L ALT 36 (7-56) units/L Alkaline Phosphatase 75 (35-129) units/L Total Protein 6.3 (6.3-8.2) g/dL Albumin 3.3 L (3.9-5) g/dL - Imaging and Cardiology EKG: report reviewed, image reviewed Echo: report reviewed ( 07/18/2020: Mild LVH, EF 10 to 15%, grade 1 diastolic dysfunction, RVSP 58 mmHg, moderate mitral regurgitation, mild aortic regurgitation) Cardiac cath: report reviewed (07/20/2020: No angiographic significant CAD, EF 15 to 20%, LVEDP 15 mmHg)
--- NOTE | 2020-09-14 10:21 | Discharge Summary ---
Providers - Providers Date of Admission: 09/09/20 04:25 Attending physician: NADER CLARKE MD 09/09/20 04:04 Consult to Physician [CONS] Routine Comment: Consulting Provider: CHU PEREZ Physician Instructions: Reason For Exam: chf a/e, elevated trop, est pt Primary care physician: SALES BROKER Hospitalization Reason for admission: Shortness of breath Condition: Stable Hospital course: 60-year-old male with history of heart failure on life vest (EF 10 to 15%), DM 2, HTN, and A. fib who presents [facility] ED with complaints of bilateral lower extremity edema, and shortness of breath. Patient complains of worsening bilateral lower extremity pitting edema extending to scrotum and abdomen x1 week. He states that "the excessive fluid buildup" is so bad that he is on able to lay flat or walk without becoming short of breath. Of note patient was given a LifeVest on 07/24/2020. At the time of my examination patient does not have on LifeVest nor is it in his physical possession. According to patient he forgot it at home because he went out of town and did not carry the vest with him. He states that he will call his brother and ask him to bring it to him. Patient will need to be reeducated and encourage to be compliant with wearing LifeVest. Endorses: Orthopnea, PND, dyspnea on exertion, dyspnea at rest, impaired mobility r/t ble edema Here in the ED, he was noted to have elevated proBNP and chest xray findings of bilateral infiltrates suggestive of CHF with trace pleural effusions. Troponin was elevated. He was started on IV diuretics and admitted. Cardiology has been consulted. Hospital course 09/10. Still has fluid overload. States he is not making much urine. Remains on bumex BID. Cardiology to see. 09/11: Patient remains with volume overload. Continue Bumex discussed with merchandise pickup/receiving associate will be started on milrinone today. Negative 240 mL documented this fluid balance. Plan discussed with the patient. LifeVest in place. 09/12: Patient continues to improve 550 mL so far fluid balance negative. Discussed need for anticoagulation with the patient he verbalized understanding the need will check urinalysis to ensure no continued hematuria. He informs me that he did have a history of prostate cancer at the time that his anticoagulation was discontinued after with him of the importance of the anticoagulation per cardiology recommendation. I have also recommended an outpatient GI and urology reevaluation for initiation of the anticoagulation. Risk discussed with the patient of not being on anticoagulation considering his cardiomyopathy and also his atrial fibrillation which increases his risk significantly. He verbalized understanding will like to discuss with his doctor For now continue milrinone drip at this time. 09/13: Continue current management. Discussed with her merchandise pickup/receiving associate today patient's respiratory status is improving Zaroxolyn 2.5 mg added to medication milrinone has been discontinued if he continues to show improvement will discharge tomorrow. A urinalysis has been reviewed no evidence of hematuria although patient again would like to discuss with his primary care physician Dr. Chavarria prior to reinitiation of any anticoagulation. Our recommendation is that he starts back on anticoagulation unless bleeding is noted. Anticipate discharge in a.m. 09/14: Patient clinically stable with no new complaints. Will replace potassium with noted underlying hypokalemia. Discussed with the patient importance to follow-up with urology and merchandise pickup/receiving associate as recommended. Patient will be discharged on Zaroxolyn 2.5 mg and also will convert diuretics to Bumex. Anticoagulation importance discussed in detail Acute on chronic systolic CHF -EF 10-15% seen on Echo (07/18/20) -Bumex 1mg BID -Replete electrolytes PRN -Cardiology on board -Has a life vest Elevated troponin -EKG unrevealing for acute ischemic abnormalities -Patient denies chest pain -Cardiology on board A. fib -Continue rate control with BB -Did not tolerate DOAC due to GI bleed and hematuria -Continuous telemetry monitoring HTN -Monitor BP -Resume home hypertensive meds DM -SSI coverage prn -Lantus Acute kidney injury secondary to vasomotor nephropathy -We will continue to monitor creatinine is 1.4 HLD -Continue statin Hyponatremia present on admission Anemia -Hemoglobin on admission 11.0 -No S/S of active bleeding -Continue to monitor hemoglobin -Transfuse as needed for Hgb < 7 Disposition: DC-01 TO HOME OR SELFCARE Final Discharge Diagnosis (Prints w/discharge instructions): Acute on chronic systolic CHF Time spent for discharge: 35 MINS Core Measure Documentation - Palliative Care Palliative Care/ Comfort Measures: Not Applicable - Core Measures Any of the following diagnoses?: none Exam - Physical Exam Narrative exam: VITAL SIGNS: Reviewed. GENERAL: The patient appears normally developed, Vital signs as documented. HEAD: No signs of head trauma. EYES: Pupils are equal. Extraocular motions intact. EARS: Hearing grossly intact. MOUTH: Oropharynx is normal. NECK: No adenopathy, no JVD. CHEST: Chest with diminished breath sounds bilaterally. No wheezes, rales, or rhonchi. Is wearing his LifeVest CARDIAC: Regular rate and rhythm. S1 and S2, without murmurs, gallops, or rubs. VASCULAR: +2 bilateral pitting edema. Peripheral pulses normal and equal in all extremities. ABDOMEN: Soft, non tender and non distended. No rebound or guarding, and no masses palpated. Bowel Sounds normal. MUSCULOSKELETAL: Good range of motion of all major joints. Extremities without clubbing, cyanosis. +2 bilateral pitting edema extending up to thighs. NEUROLOGIC EXAM: Alert and oriented x 3 No focal sensory or strength deficits. Speech normal. Follows commands. PSYCHIATRIC: Mood normal. SKIN: detail exam as documented in skin assessment - Constitutional Vitals: Temp Pulse Resp BP Pulse Ox 97.8 F 69 18 113/80 90 09/14/20 08:35 09/14/20 09:28 09/14/20 08:35 09/14/20 09:28 09/14/20 08:35 Plan Activity: advance as tolerated, fall precautions Diet: low fat, low salt Special Instructions: restrict fluid intake to (1000CC/DAY), record daily weights, record daily BP diary Additional Instructions: FOLLOW WITH PERSONAL UROLOGIST IN 3-5 DAYS Follow up with: JAVI SPARKS MD [Primary Care Provider] - 3-5 Days CHU PEREZ MD [Staff Physician] - 7 Days Prescriptions: Bumetanide [Bumex 1 mg tab] 1 mg PO 0600,1800 #60 tablet metOLazone [Zaroxolyn] 2.5 mg PO 1730 #30 tablet
[2020-09-14] MEDS: DIGOXIN 0.125 MG TAB PO SCH (17:07)
[2020-09-14] MEDS: metOLazone 2.5 MG TAB PO SCH (17:07)
[2020-09-14] MEDS ORDERED: BUMETANIDE 1 MG TAB PO SCH (18:00)
[2020-09-14 20:12] VITALS: BP 120/85
== END 2020-09-14 23:35 | disposition home or self-care (01) | DRG 291 ==
LOC: ED 01:21 → 4A 04:25
PROVIDERS: ADMIT Hospitalist; ATTEND Internal Medicine
DX: I13.0 Hypertensive heart and chronic kidney disease with heart failure and stage 1 through stage 4 chronic kidney disease, or unspecified chronic kidney disease (principal); I50.23 Acute on chronic systolic (congestive) heart failure; N17.0 Acute kidney failure with tubular necrosis; E87.1 Hypo-osmolality and hyponatremia; Z68.41 Body mass index [BMI] 40.0-44.9, adult; I48.19 Other persistent atrial fibrillation; E66.2 Morbid (severe) obesity with alveolar hypoventilation; I48.92 Unspecified atrial flutter; I47.2 Ventricular tachycardia; I42.0 Dilated cardiomyopathy; E78.5 Hyperlipidemia, unspecified; Z60.2 Problems related to living alone; I95.9 Hypotension, unspecified; D64.9 Anemia, unspecified; E11.22 Type 2 diabetes mellitus with diabetic chronic kidney disease; N18.9 Chronic kidney disease, unspecified; Z68.35 Body mass index [BMI] 35.0-35.9, adult; Z91.19 Patient's noncompliance with other medical treatment and regimen; Z88.8 Allergy status to other drugs, medicaments and biological substances; Z85.46 Personal history of malignant neoplasm of prostate; Z82.49 Family history of ischemic heart disease and other diseases of the circulatory system
CPT/HCPCS: 36415; 71045; 80048; 80053; 80061; 80162; 81001; 82962; 83735; 83880; 84484; 85025; 87641; 93005; 96365; 96375; G0378; A9270-GY; J1815; J2260; J3480